=== PATIENT | male | born 1930 | race Caucasian/White ===

== ENCOUNTER 2016-07-21 07:06 | Emergency (ER) | payer MEDICARE ==
[2016-07-21 07:31] VITALS: BP 153/48
--- NOTE | 2016-07-21 08:10 | RAD ---
INDICATION: Cough COMPARISON: October 08, 2015 TECHNIQUE: PA and lateral dual-energy views were obtained. FINDINGS: Bones/Soft Tissues: There are no acute bony findings. There is interval left-sided cardiac pacemaker placement. Cardiomediastinal: The cardiomediastinal silhouette is normal. Lungs: There are no infiltrates. Pleura: There are no pleural effusions. Other: None IMPRESSION: NO ACTIVE DISEASE.
[2016-07-21] MEDS ORDERED: Aspirin Low Dose CHEW TAB* 81 MG PO ONE (08:34)
--- NOTE | 2016-07-21 10:59 | UC ---
I, Oh,Soohharjinder, scribed for Joi Webb DO on 07/21/16 at 0746 . Respiratory Complaint HPI - HPI Summary HPI Summary: This 85 y/o male presents to [facility] alongside for "cold symptoms" since 2016. Pt was evaluated by PCP about 5 days ago and put on cefdinir. Positive chills rhinorrhea, chest congestion, productive cough, streak of blood noted in mucous of nasal dischage and sputum, dyspnea, and fatigue. Pt has felt the increased fatigue, dyspnea and discomfort since 0400 AM, and pt decided to visit [facility] today. No recent fall, increased confusion, n/v/d, jaw/neck pain, rash, GARCIA, joint pain, or dark stool. present at bedside reports possible sick contact from herself, who were sick with similar cold symptoms about a week ago. PMHx includes afib s/p pacemaker placement, HTN, and hx of internal bleeding while on Xarelto. Pt is no longer on blood thinner. Pt is remote former smoker. - History of Current Complaint Stated Complaint: CONGESTION COUGH Hx Obtained From: Patient, Family/Secondary School Teacher Librarian - present at bedside, Medical Records Onset/Duration: Gradual Onset, Still Present Severity Initially: Moderate Severity Currently: Moderate Pain Intensity: 0 Character: Sputum Description: - Red streaks Aggravating Factors: Exertion Alleviating Factors: Nothing Associated Signs And Symptoms: Positive: Dyspnea, Chills, Wheezing. Negative: Fever, Pleuritic Chest Pain, Dizziness, URI, Sinus Discomfort - Allergies/Home Medications Allergies/Adverse Reactions: Allergies Allergy/AdvReac Type Severity Reaction Status Date / Time Clindamycin Allergy Hives Verified 09/26/14 19:05 Home Medications: Home Medications Aspirin [Aspirin 81 MG TAB] 1 tab PO DAILY 07/21/16 [History Confirmed 07/21/16] Cefdinir [Cefdinir 300 MG CAP] 300 mg PO BID 07/21/16 [History Confirmed ] PMH/Surg Hx/FS Hx/Imm Hx Endocrine History Of: Reports: Thyroid Disease Cardiovascular History Of: Reports: Cardiac Disorders - AFIB-PACEMAKER, Hypertension, Atrial Fibrillation - Surgical History Surgical History: Yes Surgery Procedure, Year, and Place: PROSTECTOMY (15-16 YEARS AGO), [facility] [place] 2003 URETHRAL DILATION, CYSTOSCOPY, INTERNAL URETHROTOMY, TUR INCISION OF BLADDER NECK, [facility] [place]. [place] & 09/2013 ENDOSCOPY WITH FOOD REMOVAL FROM SMALL ESOPHAGUS(X2), [facility] [place]. 10/2013 CARDIOVERSION, [facility] [place]. 04/25/2014 APPENDECTOMY, [facility]. PACEMAKER - Family History Known Family History: Negative: Cardiac Disease, Hypertension, Diabetes - Social History Occupation: Retired Lives: With Family Alcohol Use: Weekly Alcohol Amount: 4 beers and a glass of wine Substance Use Type: None Smoking Status (MU): Former Smoker Type: Pipe Have You Smoked in the Last Year: No When Did the Patient Quit Smoking/Using Tobacco: 1999 Review of Systems Constitutional: Chills, Fatigue Skin: Negative Eyes: Negative ENT: Nasal Discharge - blood noted after blowing Respiratory: Cough, Other - positive wheezing and tachypnea per Cardiovascular: Chest Pain - chest discomfort related to chest congestion Gastrointestinal: Negative Genitourinary: Negative Motor: Negative Neurovascular: Negative Musculoskeletal: Negative Neurological: Negative Psychological: Negative All Other Systems Reviewed And Are Negative: Yes Physical Exam Triage Information Reviewed: Yes Appearance: Well-Appearing, No Pain Distress, Well-Nourished Vital Signs: Initial Vital Signs Temp 99.1 F 07/21/16 07:20 Pulse 80 07/21/16 07:20 Resp 18 07/21/16 07:20 BP 153/48 07/21/16 07:20 Pulse Ox 97 07/21/16 07:20 Vital Signs Reviewed: Yes Eyes: Positive: Conjunctiva Clear. Negative: Discharge ENT: Positive: Hearing grossly normal - with hearing aides in place, TMs normal , Other: - nasal mucosa friable evidence for recent epistaxis. Neck exam: Normal Neck: Positive: Supple Respiratory: Positive: Lungs clear, Normal breath sounds, No respiratory distress Cardiovascular: Positive: RRR, No Murmur Abdomen Description: Positive: Nontender, No Organomegaly, Soft. Negative: Distended, Guarding Bowel Sounds: Positive: Present Musculoskeletal Exam: Normal Neurological: Positive: Alert, Muscle Tone Normal Psychological Exam: Normal Psychological: Positive: Age Appropriate Behavior Skin Exam: Normal UC Diagnostic Evaluation - Laboratory O2 Sat by Pulse Oximetry: 97 - Radiology Xray Interpretation: No Acute Changes Radiology Interpretation Completed By: Radiologist - EKG Cardiac Rate: NL - See EMR Re-Evaluation - Re-Evaluation First Eval Re-Evaluation Time: 08:01 Comment: Pt and updated on CXR. Plan of care involving EKG is discussed, and they are agreeable. Second Eval Re-Evaluation Time: 08:25 Comment: Plan of care involving transfer is discussed with pt and , and they are agreeable. Respiratory Course/Dx - Differential Dx/Diagnosis Differential Diagnosis/HQI/PQRI: Bronchitis, Lower Resp Infection, Sinusitis Provider Diagnoses: 1) dyspnea 2) fatigue - Physician Notification/Consults Discussed Patient Care With: JAMES Farris ([facility]) at 0830 AM Time Discussed With Above Provider: 08:30 Discharge - Discharge Plan Condition: Stable Disposition: TRANS HIGHER LVL OF CARE FAC Referrals: Reji Giordano, PROJECT TECHNICIAN [Primary Care Provider] - The documentation as recorded by the Juan Ramon angel Soohyun accurately reflects the service I personally performed and the decisions made by , Joi Webb DO.
== END 2016-07-21 08:52 | disposition short-term general hospital (02) ==
LOC: UCEAST 07:06
DX: R06.00 Dyspnea, unspecified (principal); R53.83 Other fatigue; Z87.891 Personal history of nicotine dependence
CPT/HCPCS: 71020; 93005; 99212; A9270-GY; G0463

== ENCOUNTER 2016-07-21 09:03 | Emergency (ER) | payer MEDICARE ==
[2016-07-21 09:39] LABS: Hematocrit 34 % (42-52); Hemoglobin 11.2 g/dl (14.0-18.0); Mean Corpuscular HGB Conc 33 g/dl (31-36); Mean Corpuscular Hemoglobin 30 pg (27-31); Mean Corpuscular Volume 89 fL (80-94); Mean Platelet Volume 7 um3 (7.4-10.4); Red Blood Count 3.79 10^6/ul (4.0-5.4); Red Cell Distribution Width 18 % (10.5-15)
[2016-07-21 09:57] LABS: Albumin 3.4 g/dL (3.2-5.2); BUN/Creatinine Ratio 22.7 (8-20); Calcium 8.4 mg/dL (8.6-10.3); EGFR African American 94.4 (>60); EGFR Non-African American 73.4 (>60); Globulin 3.4 g/dL (2-4); Total Bilirubin 0.9 mg/dL (0.2-1.0); Total Protein 6.8 g/dL (6.4-8.9); Troponin I 0.01 ng/mL (<0.04)
[2016-07-21 10:35] LABS: C Reactive Protein 6.05 mg/L (< 5.00)
[2016-07-21 12:22] LABS: Urine Bacteria Absent (Absent); Urine Bilirubin Negative (Negative); Urine Glucose Negative (Negative); Urine Nitrite Negative (Negative)
[2016-07-21 12:47] VITALS: BP 116/64
--- NOTE | 2016-07-21 18:20 | ED ---
prasad Casas Timothy, scribed for Olvin Jacobs MD on 07/21/16 at 0915 . Shortness of Breath - HPI Summary HPI Summary: John Bonilla is an 85 yo male presenting to [facility] with worsening SOB since last night, recommended to present by [facility]. He is not in any current pain. He states he has a cold for the past 10 days with productive cough, now unproductive. His is present in room, and states he was fatigued yesterday. He is not on any blood thinners currently other than baby ASA. He denies CP, fever, N/V/D. His MHx includes thyroid disease, Afib, CAD, HTN, esophageal ulcer, appendectomy. - History of Current Complaint Chief Complaint: EDShortnessOfBreath Time Seen by Provider: 07/21/16 09:09 Hx Obtained From: Patient Onset/Duration: Gradual Onset, Lasting Hours, Still Present, Worse Since - now Timing: Constant Current Severity: Moderate Dyspnea At: Rest Associated Signs & Symptoms: Cough (Productive) - Allergy/Home Medications Allergies/Adverse Reactions: Allergies Allergy/AdvReac Type Severity Reaction Status Date / Time Clindamycin Allergy Hives Verified 09/26/14 19:05 Home Medications: Home Medications Aspirin EC Low Dose* [Ecotrin EC Low Dose 81 MG*] 81 mg PO DAILY 07/21/16 [ History Confirmed 07/21/16] Cholecalciferol TAB* [Vitamin D TAB*] 400 unit PO QAM 07/21/16 [History Confirmed 07/21/16] Furosemide TAB* [Lasix TAB*] 20 mg PO DAILY 07/21/16 [History Confirmed 07/21/16 ] Losartan TAB* [Cozaar TAB*] 50 mg PO DAILY 07/21/16 [History Confirmed 07/21/16] Omeprazole CAP* [Prilosec CAP* 20 MG] 20 mg PO DAILY 07/21/16 [History Confirmed 07/21/16] Potassium Chlor TAB* [Klor Con ER TAB*] 10 meq PO DAILY 07/21/16 [History Confirmed 07/21/16] Sucralfate TAB* [Carafate*] 1 gm PO QID 07/21/16 [History Confirmed 07/21/16] PMH/Surg Hx/FS Hx/Imm Hx Endocrine/Hematology History: Reports: Hx Thyroid Disease Cardiovascular History: Reports: Hx Hypertension, Hx Pacemaker/ICD GI History: Reports: Other GI Disorders - VERY SMALL ESOPHAGUS, TAKING OMEPRAZOLE, FOOD GETS STUCK,-ENDOSCOPY Sensory History: Reports: Hx Cataracts - BILATERAL, Hx Contacts or Glasses - GLASSES, Hx Hearing Aid - LEFT Opthamlomology History: Reports: Hx Cataracts - BILATERAL, Hx Contacts or Glasses - GLASSES - Surgical History Surgery Procedure, Year, and Place: PROSTECTOMY (15-16 YEARS AGO), [facility] [place]. 2003 URETHRAL DILATION, CYSTOSCOPY, INTERNAL URETHROTOMY, TUR INCISION OF BLADDER NECK, [facility] [place]. 2007 & 09/2013 ENDOSCOPY WITH FOOD REMOVAL FROM SMALL ESOPHAGUS(X2), [facility] [place]. 10/2013 CARDIOVERSION, [facility] [place]. 04/25/2014 APPENDECTOMY, FLLA Hx Anesthesia Reactions: No Infectious Disease History: No Infectious Disease History: Denies: Traveled Outside the [place] in Last 30 Days - Social History Alcohol Use: Daily Alcohol Amount: 4 beers and a glass of wine Substance Use Type: Reports: None Hx Tobacco Use: No Smoking Status (MU): Former Smoker Type: Pipe Have You Smoked in the Last Year: No Review of Systems Positive: Fatigue Eyes: Negative ENT: Negative Cardiovascular: Negative Positive: Shortness Of Breath, Cough Gastrointestinal: Negative Genitourinary: Negative Musculoskeletal: Negative Skin: Negative Neurological: Negative Psychological: Normal All Other Systems Reviewed And Are Negative: Yes Physical Exam - Summary Physical Exam Summary: VITAL SIGNS: Reviewed. GENERAL: Patient is a well-developed and nourished (MALE OR FEMALE) who is lying comfortable in the stretcher. Patient is not in any acute respiratory distress. HEAD AND FACE: No signs of trauma. No ecchymosis, hematomas or skull depressions. No sinus tenderness. EYES: PERRLA, EOMI x 2, No injected conjunctiva, no nystagmus. EARS: Hearing grossly intact. Ear canals and tympanic membranes are within normal limits. MOUTH: Oropharynx within normal limits. NECK: Supple, trachea is midline, no adenopathy, no JVD, no carotid bruit, no c- spine tenderness, neck with full ROM. CHEST: Symmetric, no tenderness at palpation LUNGS: Clear to auscultation bilaterally. No wheezing or crackles. CVS: Regular rate and rhythm, S1 and S2 present, no murmurs or gallops appreciated. ABDOMEN: Soft, non-tender. No signs of distention. No rebound no guarding, and no masses palpated. Bowel sounds are normal. EXTREMITIES: FROM in all major joints, no edema, no cyanosis or clubbing. NEURO: Alert and oriented x 3. No acute neurological deficits. Speech is normal and follows commands. SKIN: Dry and warm Triage Information Reviewed: Yes Vital Signs On Initial Exam: Initial Vitals Temp Pulse Resp BP Pulse Ox 98.2 F 66 16 146/61 95 07/21/16 09:04 07/21/16 09:04 07/21/16 09:04 07/21/16 09:04 07/21/16 09:04 Vital Signs Reviewed: Yes Diagnostics - Vital Signs Vital Signs Temp Pulse Resp BP Pulse Ox 07/21/16 09:04 98.2 F 66 16 146/61 95 - Laboratory Lab Results: Lab Results 07/21/16 07/21/16 07/21/16 Range/Units 09:30 09:30 09:30 WBC 8.0 (3.5-10.8) 10^3/ul RBC 3.79 L (4.0-5.4) 10^6/ul Hgb 11.2 L (14.0-18.0) g/dl Hct 34 L (42-52) % MCV 89 (80-94) fL MCH 30 (27-31) pg MCHC 33 (31-36) g/dl RDW 18 H (10.5-15) % Plt Count 146 L (150-450) 10^3/ul MPV 7 L (7.4-10.4) um3 Neut % (Auto) 78.8 (38-83) % Lymph % (Auto) 6.2 L (25-47) % Kaufman % (Auto) 9.8 H (1-9) % Eos % (Auto) 4.0 (0-6) % Baso % (Auto) 1.2 (0-2) % Absolute Neuts (auto) 6.3 (1.5-7.7) 10^3/ul Absolute Lymphs (auto) 0.5 L (1.0-4.8) 10^3/ul Absolute Monos (auto) 0.8 (0-0.8) 10^3/ul Absolute Eos (auto) 0.3 (0-0.6) 10^3/ul Absolute Basos (auto) 0.1 (0-0.2) 10^3/ul Absolute Nucleated RBC 0 10^3/ul Nucleated RBC % 0 INR (Anticoag Therapy) 1.12 H (0.89-1.11) APTT 33.6 (26.0-36.3) seconds Sodium 131 L (133-145) mmol/L Potassium 4.0 (3.5-5.0) mmol/L Chloride 99 L (101-111) mmol/L Carbon Dioxide 25 (22-32) mmol/L Anion Gap 7 (2-11) mmol/L BUN 22 (6-24) mg/dL Creatinine 0.97 (0.67-1.17) mg/dL Est GFR ( Amer) 94.4 (>60) Est GFR (Non-Af Amer) 73.4 (>60) BUN/Creatinine Ratio 22.7 H (8-20) Glucose 112 H (70-100) mg/dL Lactic Acid (0.5-2.0) mmol/L Calcium 8.4 L (8.6-10.3) mg/dL Total Bilirubin 0.90 (0.2-1.0) mg/dL AST 50 H (13-39) U/L ALT 37 (7-52) U/L Alkaline Phosphatase 77 (34-104) U/L Troponin I 0.01 (<0.04) ng/mL C-Reactive Protein 6.05 H (< 5.00) mg/L B-Natriuretic Peptide ( - 100) pg/mL Total Protein 6.8 (6.4-8.9) g/dL Albumin 3.4 (3.2-5.2) g/dL Globulin 3.4 (2-4) g/dL Albumin/Globulin Ratio 1.0 (1-3) Urine Color Urine Appearance Urine pH (5-9) Ur Specific [place] (1.010-1.030) Urine Protein (Negative) Urine Ketones (Negative) Urine Blood (Negative) Urine Nitrate (Negative) Urine Bilirubin (Negative) Urine Urobilinogen (Negative) Ur Leukocyte Esterase (Negative) Urine WBC (Auto) (Absent) Urine RBC (Auto) (Absent) Urine Bacteria (Absent) Urine Glucose (Negative) 07/21/16 07/21/16 07/21/16 Range/Units 09:30 09:30 12:00 WBC (3.5-10.8) 10^3/ul RBC (4.0-5.4) 10^6/ul Hgb (14.0-18.0) g/dl Hct (42-52) % MCV (80-94) fL MCH (27-31) pg MCHC (31-36) g/dl RDW (10.5-15) % Plt Count (150-450) 10^3/ul MPV (7.4-10.4) um3 Neut % (Auto) (38-83) % Lymph % (Auto) (25-47) % Kaufman % (Auto) (1-9) % Eos % (Auto) (0-6) % Baso % (Auto) (0-2) % Absolute Neuts (auto) (1.5-7.7) 10^3/ul Absolute Lymphs (auto) (1.0-4.8) 10^3/ul Absolute Monos (auto) (0-0.8) 10^3/ul Absolute Eos (auto) (0-0.6) 10^3/ul Absolute Basos (auto) (0-0.2) 10^3/ul Absolute Nucleated RBC 10^3/ul Nucleated RBC % INR (Anticoag Therapy) (0.89-1.11) APTT (26.0-36.3) seconds Sodium (133-145) mmol/L Potassium (3.5-5.0) mmol/L Chloride (101-111) mmol/L Carbon Dioxide (22-32) mmol/L Anion Gap (2-11) mmol/L BUN (6-24) mg/dL Creatinine (0.67-1.17) mg/dL Est GFR ( Amer) (>60) Est GFR (Non-Af Amer) (>60) BUN/Creatinine Ratio (8-20) Glucose (70-100) mg/dL Lactic Acid 0.8 (0.5-2.0) mmol/L Calcium (8.6-10.3) mg/dL Total Bilirubin (0.2-1.0) mg/dL AST (13-39) U/L ALT (7-52) U/L Alkaline Phosphatase (34-104) U/L Troponin I (<0.04) ng/mL C-Reactive Protein (< 5.00) mg/L B-Natriuretic Peptide 292 H ( - 100) pg/mL Total Protein (6.4-8.9) g/dL Albumin (3.2-5.2) g/dL Globulin (2-4) g/dL Albumin/Globulin Ratio (1-3) Urine Color Yellow Urine Appearance Clear Urine pH 5.0 (5-9) Ur Specific [place] 1.013 (1.010-1.030) Urine Protein Negative (Negative) Urine Ketones Negative (Negative) Urine Blood 1+ H (Negative) Urine Nitrate Negative (Negative) Urine Bilirubin Negative (Negative) Urine Urobilinogen Negative (Negative) Ur Leukocyte Esterase Negative (Negative) Urine WBC (Auto) Absent (Absent) Urine RBC (Auto) Trace(0-2/hpf) (Absent) Urine Bacteria Absent (Absent) Urine Glucose Negative (Negative) Result Diagrams: 07/21/16 09:30 07/21/16 09:30 Lab Statement: Any lab studies that have been ordered have been reviewed, and results considered in the medical decision making process. - EKG 0910 Cardiac Rate: NL - 71 BPM, Other Rate EKG Interpretation: Afib @ 71 BPM. Course/Dx - Course Assessment/Plan: John Bonilla is an 85 yo male presenting to [facility] with SOB worsening since last night, sent by [facility]. CXR performed at [facility] suggests a negative examination. His EKG was WNL. After clinical examination and review of his lab and imaging studies, he will be discharged home with fatigue with appropriate instructions. Pt's blood work is WNL. There is slight anemia, but he is better than his baseline. Bnp is 292, better than usual. UA suggests no UTI, CXR shows no PNA. Therefore, I believe Pt is decompensated and fatigue. I gave instructions to Pt and Pt's daughter that if he develops any cough, fevers , chills, N/V, CP, or SOB he should return immediately to [facility] for further work up. He is hemodamically stable and A&Ox3. I discussed all the findings and test results with the patient. Patient was instructed to return to the emergency room immediately if any of the symptoms return or worsens. Plan of care was discussed with the patient and understands and agrees. All questions were answered at patient satisfaction. There were no further complaints or concerns. Lung exam before discharge: CTA B/L. Good air exchange. No wheezing or crackles heard. CVS: S1 and S2 present. No murmurs appreciated. Patient is alert and oriented x 3. Patient is hemodynamically stable. Patient will be discharged home with follow up PCP in the next 2-3 days - Diagnoses Differential Diagnosis/HQI/PQRI: Positive: Bronchitis, CHF, Pneumonia Provider Diagnoses: Fatigue Discharge - Discharge Plan Condition: Stable Disposition: HOME Patient Education Materials: Fatigue (ED) Referrals: Reji Giordano NP [Primary Care Provider] - 2 Days Additional Instructions: Please follow up with your primary care physician regarding your visit to the emergency department today. Return to the emergency department with any new or recurring symptoms. The documentation as recorded by the prasad angel Timothy accurately reflects the service I personally performed and the decisions made by , Olvin Jacobs MD.
== END 2016-07-21 12:43 | disposition home or self-care (01) ==
LOC: ED 09:03
DX: R53.83 Other fatigue (principal); I10 Essential (primary) hypertension; E07.9 Disorder of thyroid, unspecified; Z95.810 Presence of automatic (implantable) cardiac defibrillator; Z87.891 Personal history of nicotine dependence
CPT/HCPCS: 36415; 80053; 81003; 81015; 83605; 83880; 84484; 85025; 85610; 85730; 86140; 87040; 93005; 99283

== ENCOUNTER 2016-10-30 08:08 | Emergency (ER) | payer MEDICARE ==
[2016-10-30 08:25] VITALS: BP 153/76
--- NOTE | 2016-10-30 09:03 | RAD ---
INDICATION: Left lower leg injury. TECHNIQUE: 2 views of the left lower leg were obtained. FINDINGS: There is soft tissue anterior to the proximal tibia. No fracture is seen. IMPRESSION: SOFT TISSUE SWELLING, NO FRACTURE IS SEEN.
--- NOTE | 2016-10-30 09:50 | UC ---
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 LEG HAS LARGE BRUISE AND IS PAINFUL. HISTORY OF CELLULITIS. CONCERN THAT HE MAY DEVELOP CELLULITIS. - History of Current Complaint Chief Complaint: UCLowerExtremity Stated Complaint: RED AREA ON LEG Time Seen by Provider: 10/30/16 08:09 Hx Obtained From: Patient, Family/Bathhouse Attendant Onset/Duration: Sudden Onset, Lasting Days, Still Present Severity Initially: Moderate Severity Currently: Moderate Pain Intensity: 5 Pain Scale Used: 0-10 Numeric Aggravating Factor(s): Standing, Ambulation Alleviating Factor(s): Rest Able to Bear Weight: Yes - Risk Factors Gout Risk Factors: Negative DVT Risk Factors: Negative Septic Arthritis Risk Factor: Negative - Allergies/Home Medications Allergies/Adverse Reactions: Allergies Allergy/AdvReac Type Severity Reaction Status Date / Time Clindamycin Allergy Hives Verified 10/30/16 08:25 PMH/Surg Hx/FS Hx/Imm Hx Previously Healthy: Yes - Surgical History Surgical History: Yes Surgery Procedure, Year, and Place: PROSTECTOMY (15-16 YEARS AGO), [facility] [place]. 2003 URETHRAL DILATION, CYSTOSCOPY, INTERNAL URETHROTOMY, TUR INCISION OF BLADDER NECK, [facility] [place]. 2007 & 09/2013 ENDOSCOPY WITH FOOD REMOVAL FROM SMALL ESOPHAGUS(X2), [facility] [place]. 10/2013 CARDIOVERSION, [facility] [place]. 04/25/2014 APPENDECTOMY, FLLA - Family History Known Family History: Negative: Cardiac Disease, Hypertension, Diabetes - Social History Occupation: Retired Lives: With Family Alcohol Use: Daily Alcohol Amount: 4 beers and a glass of wine Substance Use Type: None Smoking Status (MU): Former Smoker Type: Pipe Have You Smoked in the Last Year: No When Did the Patient Quit Smoking/Using Tobacco: 1999 Review of Systems Constitutional: Negative Skin: Bruising - LEFT ANTERIOR LOWER LEG Eyes: Negative ENT: Negative Respiratory: Negative Cardiovascular: Negative Gastrointestinal: Negative Genitourinary: Negative Motor: Negative Neurovascular: Negative Musculoskeletal: Arthralgia, Myalgia Neurological: Negative Psychological: Negative All Other Systems Reviewed And Are Negative: Yes Physical Exam Triage Information Reviewed: Yes Appearance: Well-Appearing, Well-Nourished, Pain Distress - MILD Vital Signs: Initial Vital Signs Temp 98.4 F 10/30/16 08:18 Pulse 75 10/30/16 08:18 Resp 18 10/30/16 08:18 BP 153/76 10/30/16 08:18 Pulse Ox 99 10/30/16 08:18 Vital Signs Reviewed: Yes Eye Exam: Normal ENT Exam: Normal ENT: Positive: Normal ENT inspection, TMs normal Dental Exam: Normal Neck exam: Normal Neck: Positive: Supple, Nontender Respiratory Exam: Normal Respiratory: Positive: Chest non-tender, Lungs clear, Normal breath sounds, No respiratory distress, No accessory muscle use Cardiovascular Exam: Normal Cardiovascular: Positive: RRR, No Murmur Abdominal Exam: Normal Musculoskeletal: Positive: Strength Intact, ROM Intact, Edema @ - LEFT ANTERIOR LEG CONTUSION/HEMATOMA Neurological Exam: Normal Psychological Exam: Normal Skin: Positive: Other - LEFT ANTERIOR LOWER LEG LATERAL ASPECT CONTUSION/ HEMATOMA Lower Extremity Course/Dx - Course Course Of Treatment: PATIENT AND FAMILY WERE CONCERNED WITH CELLULITIS IN CONTEXT OF RECENT INJURY. PATIENT WAS PLACED ON KEFLEX 250 QID FOR FIVE DAYS WITH FOLLOW UP TO PRIMARY CARE - Differential Dx/Diagnosis Differential Diagnosis/HQI/PQRI: Fracture (Closed), Sprain, Strain Provider Diagnoses: LEFT LOWER LEG CONTUSION/HEMATOMA Discharge - Discharge Plan Condition: Stable Disposition: HOME Prescriptions: Cephalexin CAP* [Keflex 250 CAP*] 250 mg PO QID #20 cap Patient Education Materials: Cellulitis (ED), Contusion in Adults (ED) Referrals: Reji Giordano NP [Primary Care Provider] - Images Front/Back of Body, Lg ([place]): 1 - CONTUSION, HEMATOMA HERE
== END 2016-10-30 09:17 | disposition home or self-care (01) ==
LOC: UCEAST 08:08
DX: S80.12XA Contusion of left lower leg, initial encounter (principal); W22.8XXA Striking against or struck by other objects, initial encounter
CPT/HCPCS: 99212; G0463

== ENCOUNTER 2017-08-12 13:08 | Emergency (ER) | payer MEDICARE ==
[2017-08-12 13:25] VITALS: BP 166/70
--- NOTE | 2017-08-12 13:28 | UC ---
Skin Complaint HPI - HPI Summary HPI Summary: 86 yo male presents with abrasion to left lower leg. He tells me that 5 days ago he was going to get down off his tractor and mis-stepped - hit his left lower leg on a bucket and sustained a small laceration. Now thinks he has developed cellulitis. His caretaker resort with him today has a well documented history of cellulitis due to minor injuries over the last few years and has been placed on Cipro nearly every time with good resolution. He is ambulatory with a cane and mild pain. Denies fever, chills, increased SOB. - History of Current Complaint Chief Complaint: UCLowerExtremity Stated Complaint: LEG PAIN Hx Obtained From: Patient, Family/Putaway Driver Onset/Duration: Gradual Onset Skin Exposure Onset/Duration: Days Ago Timing: Constant Onset Severity: Moderate Current Severity: Mild Pain Intensity: 4 Pain Scale Used: 0-10 Numeric - Allergy/Home Medications Allergies/Adverse Reactions: Allergies Allergy/AdvReac Type Severity Reaction Status Date / Time clindamycin Allergy Rash Verified 08/12/17 13:26 Review of Systems Constitutional: Negative Skin: Other - Left leg redness Respiratory: Negative Cardiovascular: Negative Neurovascular: Negative Neurological: Negative Psychological: Negative All Other Systems Reviewed And Are Negative: Yes PMH/Surg Hx/FS Hx/Imm Hx Endocrine History: Hypothyroidism Cardiovascular History: Cardiac Disease, Hypertension, Congestive Heart Failure , Atrial Fibrillation GI/ History: Gastroesophageal Reflux - Surgical History Surgical History: Yes Surgery Procedure, Year, and Place: [place] (15-16 [place]ARS [place]GO[place] [facility] [place] URETHRAL DILATION, CYSTOSCOPY, INTERNAL URETHROTOMY, TUR [place]ISION [place] BLAD[place] [facility] [place] 09[place]2013 [place]OSCOPY WITH FOOD REMOVAL [place] SMALL ESOPHAG[place]X2[place] [facility] [place]. [place], [facility] [place] 04/25/2014 APPENDECTOMY, [facility] - Family History Known Family History: Negative: Cardiac Disease, Hypertension, Diabetes - Social History Occupation: Retired Lives: With Family Alcohol Use: Occasionally Alcohol Amount: 4 beers and a glass of wine Substance Use Type: None Smoking Status (MU): Former Smoker Type: Pipe Have You Smoked in the Last Year: No When Did the Patient Quit Smoking/Using Tobacco: 1999 Physical Exam - Summary Physical Exam Summary: GENERAL: NAD. WDWN. No pain distress. SKIN: 2.5cm healing laceration to anterior left lower leg. 3+ edema b/l LEs. Left LE with mild erythema and brawny appearance. Mild warmth. NECK: Supple. Nontender. No lymphadenopathy. CHEST: No accessory muscle use. Breathing comfortably and in no distress. CV: Pulses intact left DP and PT. Brisk cap refill. MSK: Left LE: FROM. Strength 5/5. sensations intact NEURO: Alert. CN II-XII grossly intact. PSYCH: Age appropriate behavior. Triage Information Reviewed: Yes Vital Signs: Initial Vital Signs Temp 98.7 F 08/12/17 13:16 Pulse 72 08/12/17 13:16 Resp 16 08/12/17 13:16 BP 166/70 08/12/17 13:16 Pulse Ox 100 08/12/17 13:16 Course/Dx - Course Course Of Treatment: Cellulitis left lower leg - Cipro - Diagnoses Provider Diagnoses: Left leg cellulitis Discharge - Sign-Out/Discharge Documenting (check all that apply): Discharge/Admit/Transfer - Discharge Plan Condition: Stable Disposition: HOME Prescriptions: Ciprofloxacin TAB* [Cipro 500 MG TAB*] 500 mg PO BID #14 tab Patient Education Materials: Cellulitis (DC) Referrals: Reji Giordano NP [Primary Care Provider] - Additional Instructions: If you develop a fever, shortness of breath, chest pain, new or worsening symptoms - please call your PCP or go to the ED. Your blood pressure was high at todays visit. Please see your primary provider within 4 weeks for recheck and re-evaluation. - Billing Disposition and Condition Condition: STABLE Disposition: Home
== END 2017-08-12 13:42 | disposition home or self-care (01) ==
LOC: UCEAST 13:08
DX: L03.116 Cellulitis of left lower limb (principal); E03.9 Hypothyroidism, unspecified; I51.9 Heart disease, unspecified; I10 Essential (primary) hypertension; I50.9 Heart failure, unspecified; I48.91 Unspecified atrial fibrillation; K21.9 Gastro-esophageal reflux disease without esophagitis; Z88.1 Allergy status to other antibiotic agents; Z87.891 Personal history of nicotine dependence
CPT/HCPCS: 99212; G0463

== ENCOUNTER 2017-09-23 09:27 | Emergency (ER) | payer MEDICARE ==
--- OUTSIDE RECORDS SUMMARY | 2017-09-23 09:38 | XMS REPORT ---
:1930 External Reference #:[id number] Author Organization [facility] Address [address] [address] Phone [phone] Care Team Providers Name Role Phone Reji Giordano N.P. Care Team Information Client Reporting Associate Unavailable Payers Type Date Identification Numbers Payment Provider Subscriber Medicare Primary Effective: Policy Number: Medicare John Bonilla 1995 [id number] Group Name: [facility] [address] PayID: [id number] [place] [address] [facility] Effective: Policy Number: [facility] John 2012 [id number] [place] PayID: [id number] [address] [place] [address] Problems Date Description Provider Status Onset: 08/28/2012 Benign essential hypertension Reji Giordano, N.P. Active Onset: 07/08/2014 Gastroesophageal reflux disease Reji Giordano, N.PIvan Active Onset: 07/08/2014 Hypothyroidism Reji Giordano, N.PIvan Active Onset: 07/04/2016 Cardiac pacemaker procedure Reji Giordano, N.P. Active Onset: 09/26/2016 Cellulitis of lower leg Reji Giordano, N.P. Active Onset: 11/22/2016 Peripheral venous insufficiency Reji Giordnao, N.PIvan Active Onset: 11/22/2016 Gout Reji Giordano, N.PIvan Active Onset: 11/22/2016 Anemia Reji Giordano, N.PIvan Active Onset: 07/25/2017 Gastric polyp Reji Giordano N.PIvan Active Family History Date Family Member(s) Problem(s) Comments Father due to [place] () - 72y Mother due to Old Age () - age 93 Children 6 Social History Type Date Description Comments Marital Status Significant Other female ETOH Use Currently consumes alcohol daily 4 beers/d Smoking Patient is a former smoker quit 12y Allergies, Adverse Reactions, Alerts Date Description Reaction Status Severity Comments 07/08/2014 Clindamycin active 08/28/2012 NKDA inactive Medications Medication Date Status Form Strength Qnty SIG Indications Ordering Provider Ciprofloxacin 08/17/ Active Tablets 500mg 14tab 1 by mouth [place], HCL 2018 s twice a day x Mashelle, 7 days N.P. Mupirocin 11/14/ Active Ointment 2% 22uni apply to 2016 ts affected area Reji of leg twice N.P. a day Iron 07/04/ Active Tablets 142(45Fe) 1 po qd Pasquale2016 ER mg Mashelle, N.P. Sucralfate 07/04/ Active Tablets 1gm 120ta 1 by mouth Pasquale, 2016 bs qid Masxile, N.P. Aspirin Adult 07/04/ Active Tablets 81mg 90tab 1 by mouth Pasquale, Low Dose 2016 DR corona every day Masxile, N.P. Furosemide 07/23/ Active Tablets 20mg 90tab 1 by mouth Pasquale, 2015 s every day Mashelle, N.P. Potassium 07/23/ Active Tablets 10Meq 90tab 1 by mouth Pasquale, Chloride ER 2015 ER s every day Masxile, with lasix N.P. Losartan 07/21/ Active Tablets 50mg 90tab 1 by mouth Pasquale, Potassium 2015 s every day Mashelle, N.P. Amiodarone HCL 07/08/ Active Tablets 200mg 90tab 1 by mouth Pasquale, 2014 s every day Mashelle, N.P. Levothyroxine 07/08/ Active Tablets 25mcg 90tab take one Pasquale Sodium 2014 s tablet by Massofia mouth every N.P. day Omeprazole 09/04/ Active Capsules 20mg 90cap take one Pasquale 2012 DR corona capsule by Reji, mouth once N.P. daily Allopurinol 08/28/ Active Tablets 100mg 90tab take one Pasquale 2012 s tablet by Reji, mouth once N.P. daily Elidel 11/08/ Hx Cream 1% Pasquale, 2017 - Mashelle, 11/08/ N.P. 2017 Elidel 11/08/ Hx Cream 1% 60gm apply to LEFT Pasquale, 2017 - lower leg tid Mashelle, 11/22/ as directed N.P. 2017 Cipro 11/08/ Hx Tablets 500mg 10tab 1 by mouth Pasquale, 2017 - s twice a day x Mashelle, days N.P. 2017 Cephalexin 11/03/ Hx Capsules 250mg 15cap 1 By Mouth 4 Pasquale, 2017 - s Times A Day. Mashelle, 11/03/ N.P. 2016 Ciprofloxacin 11/03/ Hx Tablets 500mg 14tab 1 by mouth Pasqulae, HCL 2016 - s twice a day x Mashelle, days N.P. 2016 Hydrocodone-Keo 09/26/ Hx Tablets 5-325mg 60tab 1 by mouth Pasquale, taminophen 2016 - s every 4- 6 h Mashelle, 07/25/ as needed for N.P. 2018 pain Cefdinir 07/14/ Hx Capsules 300mg 20cap 1 by mouth Pasquale, 2016 - s twice a day x Mashelle, days N.P. 2017 Cipro 03/26/ Hx Tablets 500mg 20tab 1 by mouth Pasquale, 2015 - s twice a day x Mashelle, days N.P. 2017 Ciprofloxacin 01/20/ Hx Tablets 500mg 20tab 1 by mouth Pasquale, HCL 2014 - s twice a day x Mashelle, days N.P. 2016 Doxycycline 01/20/ Hx Capsules 100mg 20cap 1 by mouth Pasquale, Hyclate 2014 - s twice a day x Mashelle, day N.P. 2016 Losartan 07/08/ Hx Tablets 25mg 30tab 1 by mouth Pasquale, Potassium 2014 - s every day Mashelle, 07/21/ N.P. 2016 Hydrocodone 11/14/ Hx 5-325mg 24uni 1-2 by mouth Pasquale, Bitartrate / 2014 - ts every 4-6h as Mashelle, Acetaminophen 07/08/ needed pain N.P. 2014 Indomethacin 11/14/ Hx Capsules 25mg 18cap 1-2 by mouth Pasquale, 2013 - s three times a Reji, 07/08/ day with food N.P. 2014 for pain and inflammation for 2 days Xarelto 07/16/ Hx Tablets 20mg 1 qd Pasquale, 2013 - Reji, 07/04/ N.P. 2016 Xarelto 10/09/ Hx Tablets 10mg Pasquale, 2012 - Reji, 07/16/ N.P. 2013 Atenolol 09/04/ Hx Tablets 50mg 90tab take one Pasquale 2012 - tablet by Reji, 07/08/ mouth once N.P. 2014 daily Immunizations CPT Code Status Date Vaccine Lot # [id number] Given 11/22/2016 Influenza Vac, 3 Yrs & Older, Quadrivalent, Split, [id number] Im Use 87318 Given 12/03/2015 Pneumococcal 23 Immunization Adult Or [id number] Immunosuppressed Patient 78305 Given 11/25/2015 Influenza Vac, 3 Yrs & Older, Quadrivalent, Split, [id number] Im Use 12723 Given 12/28/2014 Influenza Vac, 3 Yrs & Older, Quadrivalent, Split, Im Use 15951 Given 12/01/2014 Prevnar 13 Pneumococal Conjugate Vaccine [id number] Q2038 Given 11/20/2013 Fluzone Trivalent Immunization [id number] 79600 Given 12/03/2012 Zoster (Zostavax) [id number] Given 11/20/2012 Fluzone Trivalent Immunization [id number] Vital Signs Date Vital Result Comment 08/22/2017 Body Temperature 98.4 F Weight 179.25 lb Heart Rate 67 /min BP Systolic 134 mmHg BP Diastolic 66 mmHg O2 % BldC Oximetry 96 % 07/25/2017 Body Temperature 99.0 F Weight 172.12 lb Heart Rate 85 /min BP Systolic 136 mmHg BP Diastolic 80 mmHg O2 % BldC Oximetry 99 % 11/22/2016 Body Temperature 97.7 F Weight 171.38 lb Heart Rate 79 /min BP Systolic 129 mmHg BP Diastolic 63 mmHg O2 % BldC Oximetry 99 % 11/08/2016 Body Temperature 97.7 F Weight 169.00 lb Heart Rate 83 /min BP Systolic 147 mmHg BP Diastolic 77 mmHg O2 % BldC Oximetry 98 % 11/03/2016 Body Temperature 98.4 F Weight 171.00 lb Heart Rate 79 /min BP Systolic 146 mmHg BP Diastolic 76 mmHg O2 % BldC Oximetry 95 % 09/26/2016 Body Temperature 97.9 F Weight 172.12 lb Heart Rate 66 /min BP Systolic 117 mmHg BP Diastolic 61 mmHg O2 % BldC Oximetry 98 % 08/16/2016 Body Temperature 98.1 F Weight 170.00 lb Heart Rate 67 /min BP Systolic 163 mmHg BP Diastolic 71 mmHg O2 % BldC Oximetry 98 % 07/14/2016 Body Temperature 98.6 F Weight 168.00 lb Heart Rate 73 /min BP Systolic 140 mmHg BP Diastolic 61 mmHg O2 % BldC Oximetry 98 % 07/04/2016 Body Temperature 97.5 F Weight 169.38 lb Heart Rate 74 /min BP Systolic 169 mmHg BP Diastolic 74 mmHg Height 68.5 inches 5'8.50" O2 % BldC Oximetry 98 % BMI (Body Mass Index) 25.4 kg/m2 11/25/2015 Body Temperature 97.9 F Weight 185.38 lb Heart Rate 59 /min BP Systolic 137 mmHg BP Diastolic 62 mmHg O2 % BldC Oximetry 98 % 07/22/2015 Body Temperature 98.1 F Weight 191.00 lb Heart Rate 67 /min BP Systolic 126 mmHg BP Diastolic 62 mmHg O2 % BldC Oximetry 99 % 03/26/2015 Body Temperature 97.2 F Weight 190.00 lb Heart Rate 66 /min BP Systolic 156 mmHg BP Diastolic 74 mmHg 01/20/2015 Body Temperature 97.3 F Weight 189.25 lb Heart Rate 65 /min BP Systolic 122 mmHg BP Diastolic 61 mmHg 12/01/2014 Body Temperature 98.2 F Weight 189.12 lb Heart Rate 65 /min BP Systolic 165 mmHg BP Diastolic 65 mmHg O2 % BldC Oximetry 94 % 09/01/2014 Body Temperature 97.9 F Weight 184.50 lb Heart Rate 63 /min BP Systolic 184 mmHg BP Diastolic 78 mmHg 08/14/2014 Body Temperature 97.7 F Weight 180.25 lb Heart Rate 83 /min BP Systolic 151 mmHg BP Diastolic 57 mmHg 07/08/2014 Body Temperature 97.7 F Weight 177.00 lb Heart Rate 68 /min BP Systolic 147 mmHg BP Diastolic 70 mmHg O2 % BldC Oximetry 99 % 11/20/2013 Body Temperature 97.9 F Weight 180.00 lb Heart Rate 49 /min BP Systolic 129 mmHg BP Diastolic 74 mmHg 11/14/2013 Body Temperature 98.2 F Weight 184.25 lb Heart Rate 48 /min Irregular. BP Systolic 104 mmHg BP Diastolic 56 mmHg O2 % BldC Oximetry 95 % 07/16/2013 Body Temperature 97.7 F Weight 187.00 lb Heart Rate 93 /min BP Systolic 183 mmHg BP Diastolic 70 mmHg O2 % BldC Oximetry 96 % 11/20/2012 Body Temperature 97.6 F Weight 174.25 lb Heart Rate 64 /min BP Systolic 120 mmHg BP Diastolic 60 mmHg 08/28/2012 Body Temperature 98.4 F Weight 173.12 lb Heart Rate 74 /min BP Systolic 168 mmHg BP Diastolic 70 mmHg Height 68.25 inches 5'8.25" BMI (Body Mass Index) 26.1 kg/m2 Results Test Date Test Result H/L Range Note Laboratory test finding 11/22/2016 TSH 3.05 uIU/mL 0.35-4.94 Lipid 11/22/2016 Cholesterol 146 mg/dL 50-199 Triglycerides 76 mg/dL 30-200 HDL 45 mg/dL 29-71 1 Chol/ HDL Ratio 3.2 ratio Low 4.0-6.7 VLDL 15 mg/dL 2-29 LDL (Calc) 86 mg/dL 20-99 2 Comprehensive Met Panel-[facility]G 11/22/2016 Sodium 134 mmol/L Low 135-146 3 Potassium 3.9 mmol/L 3.5-5.2 Chloride# 101 mmol/L 97-110 4 Carbon Dioxide 25 mmol/L 24-34 Glucose 119 mg/dL High 70-105 BUN 20 mg/dL 6-26 Creatinine 1.0 mg/dL 0.5-1.4 Calcium 8.6 mg/dL 8.5-10.2 Total Protein 6.3 g/dL 6.0-8.0 Albumin 3.7 g/dL 3.6-4.9 Globulin 2.6 g/dL 2.0-3.5 A/G Ratio 1.4 Ratio 1.0-2.2 Total Bilirubin 0.7 mg/dL 0.1-1.3 Alkaline Phosphatase 65 U/L 24-140 Alt 44 U/L High 3-42 Ast 57 U/L High 8-42 Lisbeth Egfr >60 >60 5 Non Lisbeth Egfr >60 >60 6 Anion Gap 8 mmol/L 7-16 7 Laboratory test finding 11/22/2016 PSA <0.010 ng/mL 0.000-4.000 8 Laboratory test finding 12/01/2014 TSH 2.93 uIU/mL 0.35-4.94 9 CBC With Auto Diff 07/16/2013 WBC 5.3 K/uL 4.1-11.0 9 RBC 4.31 M/uL Low 4.60-6.10 9 Hemoglobin 13.0 gm/dL Low 13.5-18.0 9 Hematocrit 38.6 % Low 41.0-53.0 9 MCV 89.6 fL 80.0-97.0 9 MCH 30.2 pg 27.0-32.0 9 MCHC 33.7 g/dL 32.0-36.0 9 RDW 14.1 % 11.5-14.5 9 PLT Count 164 K/ul 140-400 9 Neutrophil 66.5 % 35.0-75.0 9 Lymphocyte 17.2 % 16.0-52.0 9 Monocyte 11.6 % High 2.0-10.0 9 Eosinophil 4.0 % 0.0-5.0 9 Basophil 0.7 % 0.0-4.0 9 Abs Neutrophils 3.6 K/uL 2.1-8.0 9 Abs Lymphocytes 0.9 K/uL 0.8-5.5 9 Abmon 0.6 K/uL 0.1-1.0 9 Abs Eosinophils 0.2 K/uL 0.0-0.5 9 Abs Basophils 0.0 K/uL 0.0-0.3 9 Comprehensive Metabolic (CMP) 07/16/2013 Sodium 139 mmol/L 134-142 9 Potassium 4.6 mmol/L 3.5-5.2 9 Chloride 101 mmol/L 97-109 9 Carbon Dioxide 31 mmol/L 24-34 9 Glucose 84 mg/dL 70-105 9 BUN 17 mg/dL 6-26 9 Creatinine 0.9 mg/dL 0.5-1.4 9 Calcium 9.2 mg/dL 8.5-10.2 9 Total Protein 6.7 g/dL 6.0-8.0 9 Albumin 4.3 g/dL 3.6-4.9 9 Globulin 2.4 g/dL 2.0-3.5 9 A/G Ratio 1.8 Ratio 1.0-2.2 9 Total Bilirubin 0.4 mg/dL 0.1-1.3 9 Alkaline Phosphatase 53 U/L 24-140 9 Alt 14 U/L 3-42 9 Ast 20 U/L 8-42 9 Anion Gap 12 mmol/L 6-14 9 Lisbeth Egfr >60 >60 9, 10 Non Lisbeth Egfr >60 >60 9, 11 Lipid 07/16/2013 Cholesterol 189 mg/dL 50-199 9 Triglycerides 101 mg/dL 30-200 9 HDL 55 mg/dL 29-71 9, 12 Chol/ HDL Ratio 3.4 ratio Low 4.0-6.7 9 VLDL 20 mg/dL 2-29 9 LDL (Calc) 114 mg/dL High 20-99 9, 13 Laboratory test finding 07/16/2013 PSA 0.12 ng/mL 0.00-4.00 9, 14 CBC With Auto Diff 08/28/2012 WBC 6.1 K/uL 4.1-11.0 15 RBC 4.20 M/uL Low 4.60-6.10 15 Hemoglobin 12.7 gm/dL Low 13.5-18.0 15 Hematocrit 39.0 % Low 41.0-53.0 15 MCV 92.8 fL 80.0-97.0 15 MCH 30.1 pg 27.0-32.0 15 MCHC 32.5 g/dL 32.0-36.0 15 RDW 14.1 % 11.5-14.5 15 PLT Count 186 K/ul 140-400 15 Neutrophil 65.5 % 35.0-75.0 15 Lymphocyte 19.0 % 16.0-52.0 15 Monocyte 11.0 % High 2.0-10.0 15 Eosinophil 3.7 % 0.0-5.0 15 Basophil 0.8 % 0.0-4.0 15 Abs Neutrophils 4.0 K/uL 2.1-8.0 15 Abs Lymphocytes 1.2 K/uL 0.8-5.5 15 Abs Monocytes 0.7 K/uL 0.1-1.0 15 Abs Eosinophils 0.2 K/uL 0.0-0.5 15 Abs Basophils 0.1 K/uL 0.0-0.3 15 Comprehensive Metabolic (CMP) 08/28/2012 Sodium 138 mmol/L 134-142 15 Potassium 4.9 mmol/L 3.5-5.2 15 Chloride 102 mmol/L 97-109 15 Carbon Dioxide 29 mmol/L 24-34 15 Glucose 95 mg/dL 70-105 15 BUN 18 mg/dL 6-26 15 Creatinine 0.8 mg/dL 0.5-1.4 15 Calcium 9.4 mg/dL 8.5-10.2 15 Total Protein 6.8 g/dL 6.0-8.0 15 Albumin 4.5 g/dL 3.6-4.9 15 Globulin 2.3 g/dL 2.0-3.5 15 A/G Ratio 2.0 Ratio 1.0-2.2 15 Total Bilirubin 0.7 mg/dL 0.1-1.3 15 Alkaline Phosphatase 49 U/L 24-140 15 Alt 12 U/L 3-42 15 Ast 16 U/L 8-42 15 Anion Gap 12 mmol/L 6-14 15 Lisbeth Egfr >60 >60 15, 16 Non Lisbeth Egfr >60 >60 15, 17 Laboratory test finding 08/28/2012 TSH 2.20 uIU/mL 0.34-5.60 15 Vitamin B12 686 pg/mL 180-914 15 Laboratory test finding 08/28/2012 B Natriuretic Pep 311 pg/mL High (0-100 ) 15, 18 1 Per NCEP ATP III Guidelines: Results lower than 40 mg/dL are suggestive of increased risk for coronary artery disease. Results > or=to 60 mg/dL are considered a negative risk factor. 2 Per NCEP ATP III Guidelines: Normal Population <130 Patients with medical conditions: CHD/DM Optimal: <100 Borderline high: 130-159 High: 160-189 Very high: >189 3 Updated reference range on new analyzer 4 Updated reference range on new analyzer 5 Concerning GFR Guidelines for Americans: Normal function or mild renal disease, if clinically at risk: >/=60 mL/min Moderately decreased: 30-59 Severely decreased: 15-29 Renal failure: <15 6 Concerning GFR Guidelines: Normal function or mild renal disease, if clinically at risk: >/=60 mL/min Moderately decreased: 30-59 Severely decreased: 15-29 Renal failure: <15 Glomerular Filtration Rate (GFR) is estimated based on the MDRD equation, which assumes a steady state for creatinine as recommended by the National Kidney Disease Education Program in conjunction with the National Institutes of Health and the National Kidney Foundation. Clinical conditions in which it may be necessary to measure GFR by using clearance methods include extremes of age and body size, severe malnutrition or obesity, diseases of skeletal muscle, paraplegia or quadriplegia, vegetarian diet, rapidly changing kidney function, and calculation of the dose of potentially toxic drugs that are excreted by the kidneys. 7 Updated reference range on new analyzer 8 Beginning 04/24/06 PSA values assayed at [facility] uses chemiluminescence methodology manufactured by [employer] for use on the DXI analyzer. Values obtained with different assay methods or kits can not be used interchangeably. Serum PSA measurement is not an absolute test for malignancy. The PSA value should be used in conjunction with information available from clinical evaluation and other diagnostic procedures. 9 This sample is drawn by:ROD/JAROD 10 Concerning GFR Guidelines for Americans: Normal function or mild renal disease, if clinically at risk: >/=60 mL/min Moderately decreased: 30-59 Severely decreased: 15-29 Renal failure: <15 11 Concerning GFR Guidelines: Normal function or mild renal disease, if clinically at risk: >/=60 mL/min Moderately decreased: 30-59 Severely decreased: 15-29 Renal failure: <15 Glomerular Filtration Rate (GFR) is estimated based on the MDRD equation, which assumes a steady state for creatinine as recommended by the National Kidney Disease Education Program in conjunction with the National Institutes of Health and the National Kidney Foundation. Clinical conditions in which it may be necessary to measure GFR by using clearance methods include extremes of age and body size, severe malnutrition or obesity, diseases of skeletal muscle, paraplegia or quadriplegia, vegetarian diet, rapidly changing kidney function, and calculation of the dose of potentially toxic drugs that are excreted by the kidneys. 12 Per NCEP ATP III Guidelines: Results lower than 40 mg/dL are suggestive of increased risk for coronary artery disease. Results > or=to 60 mg/dL are considered a negative risk factor. 13 Per NCEP ATP III Guidelines: Normal Population <130 Patients with medical conditions: CHD/DM Optimal: <100 Borderline high: 130-159 High: 160-189 Very high: >189 14 Beginning 04/24/06 PSA values assayed at [facility] uses an EIA methodology manufactured by [employer] for use on the DXI analyzer. Values obtained with different assay methods or kits can not be used interchangeably. Serum PSA measurement is not an absolute test for malignancy. The PSA value should be used in conjunction with information available from clinical evaluation and other diagnostic procedures. 15 This sample is drawn by:theodore/[email or web address] 16 Concerning GFR Guidelines for Americans: Normal function or mild renal disease, if clinically at risk: >/=60 mL/min Moderately decreased: 30-59 Severely decreased: 15-29 Renal failure: <15 17 Concerning GFR Guidelines: Normal function or mild renal disease, if clinically at risk: >/=60 mL/min Moderately decreased: 30-59 Severely decreased: 15-29 Renal failure: <15 Glomerular Filtration Rate (GFR) is estimated based on the MDRD equation, which assumes a steady state for creatinine as recommended by the National Kidney Disease Education Program in conjunction with the National Institutes of Health and the National Kidney Foundation. Clinical conditions in which it may be necessary to measure GFR by using clearance methods include extremes of age and body size, severe malnutrition or obesity, diseases of skeletal muscle, paraplegia or quadriplegia, vegetarian diet, rapidly changing kidney function, and calculation of the dose of potentially toxic drugs that are excreted by the kidneys. 18 Unless otherwise specified, testing performed by [facility] [address] [place] [address] Procedures Date CPT Code Description Status 07/22/2015 17531 Measure Blood Oxygen Level Single Determination Completed 12/01/2014 35726 Admin Of Inj (Therapeutic Phrophylactic Or Diagnostic Completed Subq Inj 08/14/2014 Colonoscopy Completed 08/28/2012 07025 Measure Blood Oxygen Level Single Determination Completed Encounters Type Date Location Provider CPT E/M Dx Office Visit 08/22/2017 11:30a Reji Lozano, N.P. 97219 L03.116 Office Visit 07/25/2017 10:00a Reji Lozano, N.P. 53090 E03.9 I10 D64.9 K21.9 Office Visit 11/22/2016 8:15a Reji Lozano, N.P. 78939 E03.9 I10 L03.116 Z23 Z13.220 Z12.5 Office Visit 11/08/2016 2:15p Reji Lozano, N.P. 27574 I87.2 L30.8 Office Visit 11/03/2016 8:30a Reji Lozano, N.P. 92437 L03.116 S80.12xD Office Visit 09/26/2016 11:45a Reji Lozano, N.P. 16072 Z00.8 L03.116 Office Visit 08/16/2016 2:00p Reji Lozano, N.P. 37580 L03.115 Office Visit 07/14/2016 2:45p Reji Lozano, N.P. 09532 J01.00 Office Visit 07/04/2016 8:30a Reji Lozano, N.P. 82391 E03.9 D64.9 I10 K21.9 Office Visit 11/25/2015 8:30a Reji Lozano, N.P. 98981 Z23 R10.30 Office Visit 07/22/2015 11:00a Reji Lozano, N.P. 30101 M25.539 M89.8x8 R06.02 Office Visit 03/26/2015 10:30a Reji Lozano, N.P. 67884 L03.119 I73.9 Office Visit 01/20/2015 8:00a Reji Lozano, N.P. 85266 L03.119 Office Visit 12/01/2014 8:00a Reji Lozano, N.P. 90859 E03.9 Z23 Office Visit 09/01/2014 9:15a Reji Lozano, N.P. 91269 782.9 Office Visit 08/14/2014 8:45a Reji Lozano, N.P. 80409 V72.83 Office Visit 07/08/2014 8:30a Reji Lozano, N.P. 73517 401.1 285.9 427.89 564.00 Office Visit 11/20/2013 10:15a Reji Lozano, N.P. 82375 V04.81 682.6 Office Visit 11/14/2013 2:15p Reji Lozano, N.P. 58114 682.6 427.89 Office Visit 07/16/2013 8:15a Reji Lozano, N.P. 78497 285.9 401.1 V77.91 V76.44 Office Visit 11/20/2012 3:15p Reji Lozano, N.P. 02894 787.20 V04.81 Office Visit 08/28/2012 10:45a Reji Lozano, N.P. 80106 786.05 401.1 780.79 786.05 Plan of Care 08/22/2017 - Reji Giordano, N.P.L03.116 Cellulitis of LEFT lower limbComments :elevate and apply warm packs to area of concernfinish cipro antibiotics a s rx 'dibuprofen for pain and recheck no better 3 days or sooner if worsening at any time
[2017-09-23 09:44] VITALS: BP 127/59
--- NOTE | 2017-09-23 10:29 | UC ---
Skin Complaint HPI - HPI Summary HPI Summary: Patient presents compared by his family complaining of "hives all over". They report it began on Monday as and 3 days ago and has been getting progressively worse. He notes that is very itchy. They do report that the first spot began on his left lower lip is a blister and then he got the rash on his trunk plus she now has a couple spots on his face neck and a spot on his right upper arm. He denies any fever or chills, any arthralgia and denies any other complaints. They've been applying topical Benadryl which gives very transient relief. No other family members have any rash. He denies any new soaps foods or detergents. They have no sick contacts. - History of Current Complaint Chief Complaint: UCSkin Time Seen by Provider: 09/23/17 10:09 Stated Complaint: SKIN COMPLAINT Hx Obtained From: Patient, Family/Bluing Oven Tender Onset/Duration: Gradual Onset Timing: Constant Pain Intensity: 0 Aggravating Factor(s): Nothing Associated Signs & Symptoms: Positive: Rash - Allergy/Home Medications Allergies/Adverse Reactions: Allergies Allergy/AdvReac Type Severity Reaction Status Date / Time clindamycin Allergy Rash Verified 08/12/17 13:26 Home Medications: Home Medications Cholecalciferol TAB* [Vitamin D TAB*] 400 unit PO DAILY 09/23/17 [History Confirmed 09/23/17] Iron,Carb/Vit C/Vit B12/Folic [Iron 100 Plus Tablet] 1 each PO DAILY 09/23/17 [ History Confirmed 09/23/17] [place]-3 Fatty Acids/Fish Oil [[place] 3 1,000 mg Softgel] 1 each PO DAILY [History Confirmed 09/23/17] Sucralfate [Carafate] 1 gm PO DAILY 09/23/17 [History Confirmed 09/23/17] Review of Systems Constitutional: Negative Skin: Rash Eyes: Negative ENT: Negative Respiratory: Negative Cardiovascular: Negative Gastrointestinal: Negative Genitourinary: Negative Motor: Negative Neurovascular: Negative Musculoskeletal: Negative Neurological: Negative Psychological: Negative Is Patient Immunocompromised?: No All Other Systems Reviewed And Are Negative: Yes PMH/Surg Hx/FS Hx/Imm Hx - Additional Past Medical History Additional PMH: gout Endocrine History: Thyroid Disease, Dyslipidemia Cardiovascular History: Pacemaker/ICD, Atrial Fibrillation, Other Other Cardiovascular History: afib GI/ History: Gastroesophageal Reflux - Surgical History Surgical History: Yes Surgery Procedure, Year, and Place: PROSTECTOMY (15-16 YEARS AGO), [facility] [place]. 2003 URETHRAL DILATION, CYSTOSCOPY, INTERNAL URETHROTOMY, TUR INCISION OF BLADDER NECK, [facility] [place]. 2007 & 09/2013 ENDOSCOPY WITH FOOD REMOVAL FROM SMALL ESOPHAGUS(X2), [facility] [place]. 10/2013 CARDIOVERSION, [facility] [place]. 04/25/2014 APPENDECTOMY, [facility] - Family History Known Family History: Negative: Cardiac Disease, Hypertension, Diabetes - Social History Occupation: Retired Lives: With Family Alcohol Use: Occasionally Alcohol Amount: 4 beers and a glass of wine Substance Use Type: None Smoking Status (MU): Former Smoker Type: Pipe Have You Smoked in the Last Year: No When Did the Patient Quit Smoking/Using Tobacco: 1999 - Immunization History Vaccination Up to Date: Yes Physical Exam Triage Information Reviewed: Yes Appearance: Well-Appearing Vital Signs: Initial Vital Signs Temp 98.0 F 09/23/17 09:35 Pulse 76 09/23/17 09:35 Resp 16 09/23/17 09:35 BP 127/59 09/23/17 09:35 Pulse Ox 99 09/23/17 09:35 Vital Signs Reviewed: Yes Eyes: Positive: Conjunctiva Clear ENT: Positive: Pharynx normal, TMs normal. Negative: Nasal congestion, Nasal drainage Neck: Positive: Supple, Nontender, No Lymphadenopathy Respiratory: Positive: Lungs clear, Normal breath sounds Cardiovascular: Positive: RRR, No Murmur Abdomen Description: Positive: Nontender, No Organomegaly, Soft Bowel Sounds: Positive: Present Musculoskeletal: Positive: ROM Intact Neurological: Positive: Alert Psychological: Positive: Age Appropriate Behavior Skin Exam: Normal Skin: Positive: rashes - Patient has multiple pink spots of approximately 1/2-1 cm primarily on his trunk but also a couple spots on his right cheek right side of his neck and a spot on his right upper arm. They're slightly raised. None are vesicular and they do patric. There is no specific pattern such as a dermatome. There is also a single drying vesicle to his left lower lip. No additional lesions in his mouth. Lower extremities and palms and soles of his feet are spared. None of the areas are petechial. Course/Dx - Course Course Of Treatment: no concern for fungal, bacterial or infestation type rashes. d/w dr gibson and we agree that this is viral. will tx symptoms with very low dose benadryl-1 tsp Q6 hours prn for itch and close f/u for a recheck. - Diagnoses Provider Diagnoses: Acute rash Discharge - Sign-Out/Discharge Documenting (check all that apply): Patient Departure - Discharge Plan Condition: Stable Disposition: HOME Patient Education Materials: Viral Exanthem (ED) Referrals: eRji Giordano NP [Primary Care Provider] - 3 Days Additional Instructions: TAKE ONE TEASPOON OF BENADRYL EVERY 6 HOURS NEEDED FOR ITCHING. - Billing Disposition and Condition Condition: STABLE Disposition: Home
== END 2017-09-23 10:48 | disposition home or self-care (01) ==
LOC: UCCORT 09:27
DX: R21 Rash and other nonspecific skin eruption (principal); Z88.1 Allergy status to other antibiotic agents; Z95.811 Presence of heart assist device; K21.9 Gastro-esophageal reflux disease without esophagitis; Z87.891 Personal history of nicotine dependence
CPT/HCPCS: 99211; G0463

== ENCOUNTER → 2017-11-28 06:22 | Day surgery (SDC) | payer MEDICARE ==
--- NOTE | 2017-11-23 20:58 | HP ---
CC: Reji Giordano NP * ADMISSION HISTORY AND PHYSICAL: DATE OF ADMISSION: 11/28/17 ATTENDING SURGEON: Adráin Castellon MD * (NIR Hester, dictating). CHIEF COMPLAINT: Right inguinal hernia. HISTORY OF PRESENT ILLNESS: This is an 87-year-old male, who in early October after lifting an 80-pound salt block noted the presence of pain in the right groin, which was accompanied by a bulge, which he had not previously noted. This has continued intermittently largely related to position and activity, i.e., increased activity seems to exacerbate the symptoms. He has required multiple times of manually reducing the hernia to relieve what he refers to as discomfort, not pain. He has not had any symptoms to suggest true incarceration or strangulation. He specifically denies change in his bowel or bladder habits. His partner has occasionally had to help him with manually reducing the hernia. He was seen in the office by Dr. Castellon on 11/09/17, at which time exam confirmed the presence of a reducible right inguinal hernia. No hernia was noted on the left. Dr. Castellon discussed with him the indications for surgery, the risks, benefits, and alternatives, and the patient would like to proceed as scheduled with open repair right inguinal hernia with mesh. PAST MEDICAL HISTORY: Hypertension, gout, GERD, history of atrial fibrillation , and status post pacemaker placement in 2016 with no further episodes of atrial fibrillation. He was previously on anticoagulation, but that was stopped secondary to bleeding episodes. He was also treated with what sounds like TURP (he states he had no incisions) for "removal of my prostate for prostate cancer." PAST SURGICAL HISTORY: Other surgeries include pacemaker placement as noted above, appendectomy in 2014 via midline incision and complicated by bleeding because of concurrent use of Xarelto; tonsillectomy remotely. CURRENT MEDICATIONS: 1. Aspirin 81 mg once daily (last dose 11/21/17 in anticipation of surgery). 2. Losartan 50 mg once daily. 3. Levothyroxine 25 mcg once daily. 4. Amiodarone 200 mg once daily. 5. Allopurinol 100 mg once daily. 6. Omeprazole 20 mg once daily. 7. Furosemide 20 mg one-half tablet every day and occasionally one tablet p.r.n. for increased edema. 8. Potassium chloride 10 mEq one-half tablet every day, occasionally one full tablet on days when he takes one full tablet of furosemide. He also takes the following supplements: 1. Cranberry extract 25,000 mg. 2. [place]-3, 1000 mg. He has used sucralfate in the past, but not at the present time. DRUG ALLERGIES: CLINDAMYCIN (rash). FAMILY HISTORY: Negative for anesthesia problems, bleeding or clotting disorders. SOCIAL HISTORY: The patient lives with his long-time partner. He is a retired mckeon, who remains fairly active. He is a former pipe smoker, who quit about 14 years ago. He drinks up to two to three drinks per day on occasion, but not every day. He denies any other recreational drug use. REVIEW OF SYSTEMS: General: No recent constitutional symptoms or acute illnesses other than described in the HPI and below. Weight has been stable. HEENT: No problems reported. He is status post bilateral cataract extraction. He has full upper and lower dentures. Cardiovascular: Pacemaker in the left upper chest wall. No problems with chest pain, syncope. He is treated for hypertension. Respiratory: No chronic cough or shortness of breath. GI: No problems reported. He has had past problems related to gastric polyps including bleeding requiring transfusion at one point, but not recently. : Status post prostatectomy. No problems reported. Endocrine: No diabetes. He is on thyroid supplement. Musculoskeletal: Past history of gout, but no recent problems. PHYSICAL EXAMINATION GENERAL: Well-nourished, well-developed elderly male, in no acute distress. VITAL SIGNS: Height 5 feet 11 inches, weight 175 pounds. Temperature 97.7, blood pressure 142/60, pulse 84, respirations 18. HEENT: Pupils equal and round, reactive. EOM's intact. No conjunctival pallor. Oropharynx: Full upper and lower dentures. No intraoral lesions. NECK: No lymphadenopathy, thyromegaly, or masses. LUNGS: Clear to auscultation. No rales or wheezes. HEART: Regular rate and rhythm. No murmur appreciated. Pacemaker in left upper chest wall. ABDOMEN: Soft, nontender to palpation. There is a reducible, minimally tender right inguinal hernia in the right groin. EXTREMITIES: No edema. Peripheral pulses not specifically checked. BACK: No spinous process or CVA tenderness. GENITALIA: Otherwise not examined. RECTAL: Not done. NEUROLOGICAL: Grossly intact. SKIN: Warm and dry. He does have a number of actinic keratotic appearing lesions on the scalp and forehead, but none that look suspicious. He does have hyperpigmentation of both lower extremities consistent with chronic venous stasis. IMPRESSION: Right inguinal hernia. PLAN: Open repair, right inguinal hernia with mesh. NIR HESTER [id number]/[facility] #: [id number] [facility]ICAL CENTERAlisia
[~2017-11-28 06:22] MED LIST: Acetaminophen TAB* 325 MG PO PRN; Buffered Lidocaine 0.9% SYRIN* 5 ML/SYR SYRINGE INTRADERM ONE; Buffered Lidocaine 0.9% SYRIN* 5 ML/SYR SYRINGE ONE; Bupivacaine 0.25% EPI 200,000* 30 ML SDV ONE; Bupivacaine 0.5% SDV PF* 30ML VIAL ONE; Lidocain 1% EPI 1:100,000 * 30 ML MDV ONE; Lidocaine 1% INJ* 10 MG/ML 30 ML SDV ONE; Lidocaine 2% PF * 5 ML VIAL ONE; Naloxone* 0.4 MG/ML 1 ML VIAL IV PRN; Propofol* 10 MG/ML 20 ML BTL IV PUSH ONE; ceFAZolin 2 GM in NS PREMIX(*) 2 GM/100 ML BAG IVPB ONE; fentaNYL* 50 MCG/ML 2 ML VIAL (100 MCG VIAL) ONE
--- NOTE | 2017-11-28 09:00 | OP ---
Operative Report - Blank - Operative Report Date of Operation: 11/28/17 Note: Brief Operative Note Preop Dx: right inguinal hernia Postop Dx: same, indirect Procedure: open repair RIH w/ mesh (Progrip) Anesthesia: local MAC Surgeon: Ravinder On Air Personality: NIR Davies Fluids: EBL: < 20 ml Specimen: hernia sac Drains: none Findings: dictated
[2017-11-28 10:05] VITALS: BP 165/76
--- NOTE | 2017-11-29 08:22 | OP ---
CC: Reji Giordano NP * DATE OF OPERATION: 11/28/17 - [facility] DATE OF : 28 SURGEON: Adrián Castellon MD FEATHER MAKER: NIR Hester ANESTHESIOLOGIST: Johny Topete MD ANESTHESIA: Local MAC. PRE-OP DIAGNOSIS: Right inguinal hernia. POST-OP DIAGNOSIS: Right inguinal hernia. OPERATIVE PROCEDURE: Open repair of right inguinal hernia with mesh. ESTIMATED BLOOD LOSS: Less than 20 mL. IV FLUIDS: Crystalloids. SPECIMEN: Hernia sac. DRAINS: None. COMPLICATIONS: None. COUNTS: Instrument, needle, and sponge counts correct. DESCRIPTION OF PROCEDURE: The patient was brought to the operative room and placed on the table supine. Sequential compression devices were placed on both lower extremities. Intravenous sedation was administered. His right groin was prepped and draped in the usual sterile fashion. He received appropriate intravenous antibiotics. Time-out was performed. Local anesthetic was infiltrated as a field block in the right groin. An oblique incision was created approximately 6 cm long and subcutaneous tissues were divided with cautery. External oblique aponeurosis was identified and additional anesthetic was infiltrated beneath this. The aponeurosis was opened in the line of its fibers through the superficial ring. Underlying the aponeurosis were 2 nerve structures that were each isolated, subsequently divided and ligated as they were unable to be mobilized adequately. The contents of the inguinal canal were isolated with a [place] drain at the level of the pubic tubercle. An indirect inguinal hernia sac was identified. Spermatic cord structures were dissected free from this. The sac was twisted upon itself, ligated with 2-0 Polysorb and transacted distally with the sac submitted to Pathology. The proximal sac was allowed to retract the element of deep ring. Repair was then performed using the ProGrip right side mesh and this was positioned to cover the entire floor of the defect with the mesh encircling the spermatic cord. Subsequently, after assuring hemostasis, the external oblique was closed with 2-0 Vicryl running and Jess's was closed with 3-0 Vicryl in an interrupted. Skin was closed with 4-0 Monocryl running. Steri-Strips were applied. The patient tolerated the procedure well and was awakened and transferred to Recovery in stable condition. [id number]/[facility] #: [id number] [facility]
== END | disposition home or self-care (01) ==
LOC: OR 06:22
PROVIDERS: ATTEND Surgery
DX: K40.90 Unilateral inguinal hernia, without obstruction or gangrene, not specified as recurrent (principal); I10 Essential (primary) hypertension; I48.91 Unspecified atrial fibrillation; Z95.0 Presence of cardiac pacemaker; Z79.82 Long term (current) use of aspirin; Z79.01 Long term (current) use of anticoagulants
CPT/HCPCS: 88302; C1781; J0690; J2704; J3010

== ENCOUNTER 2018-08-24 12:36 | Emergency (ER) | payer MEDICARE ==
--- OUTSIDE RECORDS SUMMARY | 2018-08-24 12:52 | XMS REPORT | Continuity of Care Document ---
:1930 External Reference #:[id number] Author Name Gudelia Beavers Care Team Providers Name Role Phone Reji Giordano NP Primary Care Physician Unavailable Payers Date Identification Numbers Payment Provider Subscriber Effective: 1994 Policy Number: [id number] Medicare Yvette Bonilla PayID: [id number] [address] [place] [address] Effective: 2012 Policy Number: [facility] Yvette Bonilla [id number] PayID: [id number] [address] [place] [address] Problems Active Problems Provider Date Dyspnea Cecilio Angel M.D. Onset: 07/24/2013 Atrial fibrillation Cecilio Angel M.D. Onset: 07/24/2013 Family History Date Family Member(s) Observation Comments General Cancer General Diabetes Social History Type Date Description Comments Sex Unknown Marital Status Lives With Female Partner Occupation Retired Occupation [employer] ETOH Use Occasionally consumes alcohol Tobacco Use Start: Unknown End: Patient is a former smoker Unknown Recreational Drug Use Denies Drug Use Tobacco Use Start: Unknown quit [id number] Smoking Status Reviewed: 08/22/18 quit [id number] Exercise Type/Frequency Exercises regularly Allergies, Adverse Reactions, Alerts Active Allergies Reaction Severity Comments Date Clindamycin Hives Moderate 07/25/2014 Inactive Allergies NKDA 08/15/2013 Medications Active Medications SIG Qnty Indications Ordering Date Provider Losartan Potassium 1 by mouth every 90tabs Cecilio Cha 07/03/2015 50mg day Iker Angel Tablets Omeprazole 1 by mouth daily 30tabs Unknown 20mg Tablets in the morning in DR empty stomach Allopurinol 1 by mouth every 90tabs Unknown 100mg day Tablets Amiodarone HCL 1/2 by mouth every 90tabs Cecilio Cha 200mg day ( decreased Iker Angel Tablets [facility] 03/2018) Levothyroxine Sodium 1 by mouth every Unknown day 25mcg Tablets Furosemide 2 tablet po daily Unknown 20mg Tablets ( increase Reji Giordano 08/22/18) Potassium Chloride ER 2 tab by mouth Unknown every day 10Meq Capsules ER (increase 07/2618 Reji Giordano [employer]OR) Aspirin Enteric 1 by mouth every Unknown Coated Adult Low day Strength 81mg Tablets DR Iron (Ferrous 1 daily Unknown Sulfate) 142(45Fe) mg Tablets ER [place] 3 1 by mouth daily Unknown 1000mg Capsules Cranberry 1 by mouth every Unknown 25,000mg day Capsule Anoro Ellipta 1 inhalation daily Unknown 62.5-25mcg/Inh Aerosol Vitamin D3 1 po daily Unknown 400Unit Chewtabs Stool Softener 1 po as needed Unknown History Medications Oxycodone-Acetaminophen 1 by mouth 15tabs K40.90 Sarika Elizondo 12/04/2017 - 5-325mg Tablets every 4- 6 MD Jarrod Unknown hours as needed for pain Hydrocodone-Acetaminophen 1 tablet by 8tabs Sarika Elizondo 11/23/2017 - 5-325mg mouth every 4-6 MD Jarrod 12/05/2017 Tablets hours as needed for moderately severe pain Vitamin D3 1 tablets Cecilio Cha 11/26/2015 - 400Iu Tablets daily. Iker Angel Unknown Vitamin E 1 by mouth Cecilio Cha 07/24/2013 - 400Units Capsules every day Iker Angel 03/27/2014 Xarelto 1 by mouth 90tabs Cecilio Cha 09/21/2012 - 20mg Tablets every day (No Iker Angel Unknown longer using ) Vitamin D3 Unknown - 400Unit Tablets 12/05/2017 Mupirocin apply thin film Unknown - 2% Ointment of ointment to Unknown the affected area(s) three times daily for 10-14 days Cipro 1 by mouth Unknown - 500mg Tablets twice a day for Unknown 10 days Sucralfate 1 by mouth once Unknown - 1gm Tablets a day as needed 08/21/2018 Vitamin E 1 daily Unknown - 400Unit Chewtabs 09/12/2015 Aspirin Adult Low Dose 1 by mouth Unknown - 81mg Tablets DR every day 09/12/2015 Turmeric 1 by mouth Unknown - 500mg Capsules every day 07/05/2016 Cranberry 1 daily Unknown - 25,000mg Unknown Losartan Potassium 1 by mouth 90tabs Cecilio Cha - 25mg Tablets every day Iker Angel 07/03/2015 Green Source daily Unknown - Tablets 07/02/2015 Black Manning daily Unknown - Capsule Unknown Vitamin D 1 by mouth Unknown - 400Unit Capsules every day 11/27/2015 Aspir-81 1 by mouth Unknown - 81mg Tablets DR every day 03/27/2014 Atenolol 1 by mouth 90tabs Unknown - 50mg Tablets every day 12/10/2013 Medications Administered in Office Medication SIG Qnty Indications Ordering Provider Date Inj, Regadenoson, 0.1 MG Cecilio Angel M.D. 09/12/2012 Injection Technetium TC 99M Tetrofosmin, Cecilio Angel M.D. 09/12/2012 Per Unit Dose Up To 40 Millicuries Injection Vital Signs Date Vital Result Comment 08/22/2018 8:21am Weight 194.00 lb with shoes Heart Rate 70 /min BP Systolic Sitting 120 mmHg Lue reg cuff BP Diastolic Sitting 60 mmHg Lue reg cuff BP Systolic Standing 122 mmHg Lue reg cuff BP Diastolic Standing 68 mmHg Lue reg cuff Respiratory Rate 16 /min Ejection Fraction 60-65% date 07/31/15 echo 12/11/2017 11:11am Heart Rate 72 /min Respiratory Rate 18 /min Body Temperature 97.8 F 12/06/2017 3:27pm Weight 183.00 lb Heart Rate 88 /min BP Systolic Sitting 132 mmHg left arm manual cuff BP Diastolic Sitting 82 mmHg left arm manual cuff Pain Level 2 12/04/2017 11:45am Heart Rate 78 /min BP Systolic Sitting 142 mmHg BP Diastolic Sitting 70 mmHg Respiratory Rate 18 /min Body Temperature 97.4 F 11/23/2017 1:01pm Height 67 inches 5'7" Weight 175.00 lb Heart Rate 84 /min BP Systolic Sitting 142 mmHg BP Diastolic Sitting 60 mmHg Respiratory Rate 18 /min Body Temperature 97.7 F BMI (Body Mass Index) 27.4 kg/m2 11/09/2017 10:23am Height 67 inches 5'7" Weight 175.00 lb Heart Rate 76 /min BP Systolic 130 mmHg BP Diastolic 60 mmHg Respiratory Rate 18 /min Body Temperature 98.3 F BMI (Body Mass Index) 27.4 kg/m2 12/07/2016 10:54am Height 69 inches 5'9" Weight 175.00 lb with shoes Heart Rate 88 /min BP Systolic Sitting 178 mmHg Rue reg cuff BP Diastolic Sitting 88 mmHg Rue reg cuff BP Systolic Standing 184 mmHg Rue reg cuff BP Diastolic Standing 90 mmHg Rue reg cuff Respiratory Rate 17 /min BMI (Body Mass Index) 25.8 kg/m2 Ejection Fraction 60-65% 07/31/2015-echo 07/06/2016 10:18am Height 69 inches 5'9" Weight 168.00 lb with shoes Heart Rate 66 /min BP Systolic Sitting 152 mmHg BP Diastolic Sitting 66 mmHg BP Systolic Standing 156 mmHg BP Diastolic Standing 68 mmHg Respiratory Rate 17 /min BMI (Body Mass Index) 24.8 kg/m2 Ejection Fraction 60-65% 07/31/2015-echo 11/27/2015 8:48am Height 69 inches 5'9" Weight 185.50 lb with shoes Heart Rate 58 /min BP Systolic Sitting 134 mmHg Ra reg cuff BP Diastolic Sitting 64 mmHg Ra reg cuff BP Systolic Standing 136 mmHg Ra reg cuff BP Diastolic Standing 68 mmHg Ra reg cuff Respiratory Rate 18 /min BMI (Body Mass Index) 27.4 kg/m2 Waist to Hip Ratio 60-65% 07/31/2015 10/29/2015 7:45am Height 69 inches 5'9" Weight 192.00 lb with shoes Heart Rate 58 /min BP Systolic Sitting 130 mmHg Ra reg cuff BP Diastolic Sitting 66 mmHg Ra reg cuff BP Systolic Standing 142 mmHg Ra reg cuff BP Diastolic Standing 66 mmHg Ra reg cuff Respiratory Rate 18 /min BMI (Body Mass Index) 28.4 kg/m2 Ejection Fraction 60-65% 08/27/2015 10/13/2015 1:21pm Height 69 inches 5'9" Weight 189.00 lb w/ shoes Heart Rate 58 /min BP Systolic Sitting 180 mmHg Rue, reg cuff BP Diastolic Sitting 76 mmHg Rue, reg cuff BP Systolic Standing 164 mmHg Rue BP Diastolic Standing 70 mmHg Rue Respiratory Rate 16 /min O2 % BldC Oximetry 97 % on Ra BMI (Body Mass Index) 27.9 kg/m2 Ejection Fraction 60-65% as of 07/31/15 echo 08/07/2015 11:32am Height 69 inches 5'9" Weight 189.31 lb Heart Rate 66 /min BP Systolic Sitting 160 mmHg Ra reg cuff BP Diastolic Sitting 90 mmHg Ra reg cuff BP Systolic Standing 178 mmHg Ra reg cuff BP Diastolic Standing 96 mmHg Ra reg cuff Respiratory Rate 16 /min BMI (Body Mass Index) 28.0 kg/m2 Ejection Fraction 60-65% 07/31/15 07/03/2015 12:43pm Height 69 inches 5'9" Weight 187.50 lb with shoes Heart Rate 64 /min BP Systolic Sitting 168 mmHg Ra reg cuff BP Diastolic Sitting 74 mmHg Ra reg cuff BP Systolic Standing 168 mmHg Ra reg cuff BP Diastolic Standing 72 mmHg Ra reg cuff Respiratory Rate 16 /min BMI (Body Mass Index) 27.7 kg/m2 Ejection Fraction 67% 08/05/13 11/27/2014 8:07am Height 69 inches 5'9" Weight 189.00 lb no shoes Heart Rate 76 /min BP Systolic Sitting 144 mmHg Ra, reg cuff BP Diastolic Sitting 78 mmHg Ra, reg cuff BP Systolic Standing 152 mmHg Ra BP Diastolic Standing 76 mmHg Ra Respiratory Rate 16 /min BMI (Body Mass Index) 27.9 kg/m2 Ejection Fraction 67% 08/05/2013 07/25/2014 9:39am Height 69 inches 5'9" Heart Rate 62 /min reg BP Systolic Sitting 142 mmHg Ra, reg cuff BP Diastolic Sitting 70 mmHg Ra, reg cuff BP Systolic Standing 140 mmHg Ra BP Diastolic Standing 70 mmHg Ra Respiratory Rate 18 /min Ejection Fraction 67% calculated Ef as of 08/05/13 12/11/2013 10:04am Height 69 inches 5'9" Weight 184.00 lb with boots BP Systolic Sitting 144 mmHg Ra reg cuff BP Diastolic Sitting 76 mmHg Ra reg cuff BP Systolic Standing 146 mmHg Ra reg cuff BP Diastolic Standing 80 mmHg Ra reg cuff BMI (Body Mass Index) 27.2 kg/m2 2013 9:54am Height 69 inches 5'9" Weight 182.00 lb with shoes Heart Rate 60 /min BP Systolic Sitting 154 mmHg Ra reg cuff sit BP Diastolic Sitting 80 mmHg Ra reg cuff sit BP Systolic Lying Down 134 mmHg Ra reg cuff stand BP Diastolic Lying Down 60 mmHg Ra reg cuff stand Respiratory Rate 16 /min BMI (Body Mass Index) 26.9 kg/m2 09/18/2013 12:45pm Height 69 inches 5'9" Weight 183.00 lb no shoes Heart Rate 58 /min BP Systolic Sitting 110 mmHg LA, reg cuff BP Diastolic Sitting 68 mmHg LA, reg cuff BP Systolic Standing 100 mmHg LA BP Diastolic Standing 58 mmHg LA Respiratory Rate 16 /min O2 % BldC Oximetry 96 % @rest BMI (Body Mass Index) 27.0 kg/m2 08/15/2013 9:55am Height 69 inches 5'9" Weight 183.00 lb no shoes Heart Rate 65 /min BP Systolic Sitting 144 mmHg LA, reg cuff BP Diastolic Sitting 82 mmHg LA, reg cuff BP Systolic Standing 65 mmHg 65 BP Diastolic Standing 65 mmHg 65 Respiratory Rate 16 /min BMI (Body Mass Index) 27.0 kg/m2 07/24/2013 8:12am Height 69 inches 5'9" Weight 186.00 lb without shoes Heart Rate 65 /min BP Systolic Sitting 136 mmHg BP Diastolic Sitting 84 mmHg BP Systolic Standing 128 mmHg BP Diastolic Standing 80 mmHg Respiratory Rate 18 /min BMI (Body Mass Index) 27.5 kg/m2 Results Test Date Facility Test Result H/L Range Note Laboratory test 11/28/2017 [facility] Surgical SEE RESULT [address] [place] [address] [phone] CBC Auto Diff 07/21/2016 [facility] White Blood 8.0 10^3/uL N 3.5-10.[address] [place] [address] [phone] Red Blood Count 3.79 10^6/uL Low 4.0-5.4 Hemoglobin 11.2 g/dL Low 14.0-18.0 Hematocrit 34 % Low 42-52 Mean Corpuscular Volume 89 fL N 80-94 Mean Corpuscular Hemoglobin 30 pg N 27-31 Mean Corpuscular HGB Conc 33 g/dL N 31-36 Red Cell Distribution Width 18 % High 10.5-15 Platelet Count 146 10^3/uL Low 150-450 Mean Platelet Volume 7 um3 Low 7.4-10.4 Abs Neutrophils 6.3 10^3/uL N 1.5-7.7 Abs Lymphocytes 0.5 10^3/uL Low 1.0-4.8 Abs Monocytes 0.8 10^3/uL N 0-0.8 Abs Eosinophils 0.3 10^3/uL N 0-0.6 Abs Basophils 0.1 10^3/uL N 0-0.2 Abs Nucleated RBC 0 10^3/uL N Granulocyte % 78.8 % N 38-83 Lymphocyte % 6.2 % Low 25-47 Monocyte % 9.8 % High 1-9 Eosinophil % 4.0 % N 0-6 Basophil % 1.2 % N 0-2 Nucleated Red Blood Cells % 0 N Laboratory test 07/21/2016 [facility] Troponin-I 0.01 ng/mL N <0.04 [address] (TnI) [place] [address] [phone] Comp Metabolic 07/21/2016 [facility] Sodium 131 mmol/L Low 133 -[address] [place] [address] [phone] Potassium 4.0 mmol/L N 3.5-5.0 Chloride 99 mmol/L Low 101-111 Co2 Carbon Dioxide 25 mmol/L N 22-32 Anion Gap 7 mmol/L N 2-11 Glucose 112 mg/dL High 70-100 Blood Urea Nitrogen 22 mg/dL N 6-24 Creatinine 0.97 mg/dL N 0.67-1.17 BUN/Creatinine Ratio 22.7 High 8-20 Calcium 8.4 mg/dL Low 8.6-10.3 Total Protein 6.8 g/dL N 6.4-8.9 Albumin 3.4 g/dL N 3.2-5.2 Globulin 3.4 g/dL N 2-4 Albumin/Globulin Ratio 1.0 N 1-3 Total Bilirubin 0.90 mg/dL N 0.2-1.0 Alkaline Phosphatase 77 U/L N 34-104 Alt 37 U/L N 7-52 Ast 50 U/L High 13-39 Egfr Non- 73.4 N >60 Egfr 94.4 N >60 3 Inr/Protime 07/21/2016 [facility] Inr 1.12 High 0.89-1.[address] [place] [address] [phone] Laboratory test 07/21/2016 [facility] Partial 33.6 N 26.0- 36.[address] [place] [address] Time PTT [phone] B-Type Natriuretic Peptide BNP 292 pg/mL High 4 Lactic Acid 0.8 mmol/L N 0.5-2.0 5 C Reactive Protein 6.05 mg/L High < 5.00 6 Urinalysis Profile 07/21/2016 [facility] Urine Color Yellow N [address] [place] [address] [phone] Urine Appearance Clear N Urine Specific [place] 1.013 N 1.010-1.030 Urine pH 5.0 N 5-9 Urine Urobilinogen Negative N Negative Urine Ketones Negative N Negative Urine Protein Negative N Negative Urine Leukocytes Negative N Negative Urine Blood 1+ Abnormal Negative Urine Nitrite Negative N Negative Urine Bilirubin Negative N Negative Urine Glucose Negative N Negative Urine White Blood Cell Absent N Absent Urine Red Blood Cell Trace(0-2/hpf) N Absent Urine Bacteria Absent N Absent Laboratory test 07/21/2016 [facility] Blood Culture SEE RESULT [address] [place] [address] [phone] Laboratory test 10/29/2015 [facility] TSH (Thyroid 2.63 mcIU/mL N 0.34-[address] Stim Horm) .60 [place] [address] [phone] Laboratory test 10/29/2015 [facility] Ach Receptor 0.00 nmol/L N <=0.02 [address] [place] [address] [phone] Creatine Kinase(CK) 47 U/L N 10-223 9 CBC Auto Diff 10/13/2015 [facility] White Blood 4.6 10^3/uL N 3.5-10.[address] [place] [address] [phone] Red Blood Count 4.10 10^6/uL N 4.0-5.4 Hemoglobin 10.3 g/dL Low 14.0-18.0 Hematocrit 32 % Low 42-52 Mean Corpuscular Volume 78 fL Low 80-94 Mean Corpuscular Hemoglobin 25 pg Low 27-31 Mean Corpuscular HGB Conc 32 g/dL N 31-36 Red Cell Distribution Width 16 % High 10.5-15 Platelet Count 163 10^3/uL N 150-450 Mean Platelet Volume 7 um3 Low 7.4-10.4 Abs Neutrophils 3.2 10^3/uL N 1.5-7.7 Abs Lymphocytes 0.6 10^3/uL Low 1.0-4.8 Abs Monocytes 0.6 10^3/uL N 0-0.8 Abs Eosinophils 0.2 10^3/uL N 0-0.6 Abs Basophils 0.1 10^3/uL N 0-0.2 Abs Nucleated RBC 0 10^3/uL N Granulocyte % 68.7 % N 38-83 Lymphocyte % 12.4 % Low 25-47 Monocyte % 12.4 % High 1-9 Eosinophil % 5.3 % N 0-6 Basophil % 1.2 % N 0-2 Nucleated Red Blood Cells % 0 N Basic Metabolic 10/13/2015 [facility] Sodium 125 mmol/L Low 133-[address] [place] [address] [phone] Potassium 4.5 mmol/L N 3.5-5.0 Chloride 93 mmol/L Low 101-111 Co2 Carbon Dioxide 26 mmol/L N 22-32 Anion Gap 6 mmol/L N 2-11 Glucose 101 mg/dL High 70-100 Blood Urea Nitrogen 14 mg/dL N 6-24 Creatinine 1.06 mg/dL N 0.67-1.17 BUN/Creatinine Ratio 13.2 N 8-20 Calcium 8.7 mg/dL N 8.6-10.3 Egfr Non- 66.2 N >60 Egfr 85.2 N >60 10 Laboratory test 10/13/2015 [facility] B-Type 440 pg/mL High [address] [place] [address] Peptide BNP [phone] Laboratory test 10/08/2015 [facility] TSH (Thyroid 2.77 N 0.34 - finding [address] Stim Horm) mcIU/mL 5.60 [place] [address] [phone] Basic Metabolic 09/20/2012 [facility] Sodium 137 mmol/L 133- [address] [place] [address] [phone] Potassium 4.8 mmol/L 3.5-5.0 Chloride 103 mmol/L 101-111 Co2 Carbon Dioxide 30.0 mmol/L 22-32 Anion Gap 4.0 mmol/L 2-11 Glucose 102 mg/dL High 70-100 Blood Urea Nitrogen 17 mg/dL 6-24 Creatinine 0.90 mg/dL 0.50-1.40 BUN/Creatinine Ratio 18.9 8-20 Calcium 9.3 mg/dL 8.1-9.9 Egfr Non- 80.8 >60 Egfr 103.9 >60 12 CBC No Diff 09/20/2012 [facility] White Blood 8.0 10^3/uL 4.8 -10.[address] [place] [address] [phone] Red Blood Count 4.08 10^6/uL 4.0-5.4 Hemoglobin 13.0 g/dL Low 14.0-18.0 Hematocrit 38 % Low 42-52 Mean Corpuscular Volume 93 fL 80-94 Mean Corpuscular Hemoglobin 32 pg High 27-31 Mean Corpuscular HGB Conc 34 g/dL 31-36 Red Cell Distribution Width 14 % 10.5-15 Platelet Count 185 10^3/uL 150-450 Mean Platelet Volume 8 um3 7.4-10.4 1 SEE RESULT BELOW Name: YVETTE BONILLA : [address]: Adrián Castellon MD Acct: [id number] Unit: [id number] AGE: 87 Location: OR Re11/28/17 SEX: M Status: REG SDC SPEC: [id number] TERRANCE: 11/28/17- SUBM DR: Adrián Castellon MD REQ: [id number] RECD: 11/28/17 STATUS: SOUT _ ORDERED: LEVEL 2 FINAL DIAGNOSIS Right inguinal region, herniorrhaphy: -- Hernia sac. PRE-OPERATIVE DIAGNOSIS Right inguinal hernia GROSS DESCRIPTION The specimen is received in formalin labeled, Right Inguinal Hernia Sac, and consists of a 4.0 by up to 2.5 x 0.6 cm butt-pink wrinkled saccular portion of fibromembranous tissue with scant adherent yellow fat. [facility] Animal Care sections, one cassette. Signed by and Reported on: Giancarlo Layton MD 05/14 1559 END OF REPORT DEPARTMENT OF PATHOLOGY, [address] [place] [address] Giancarlo Layton M.D. Director [facility] # [id number] 2 99th percentile=0.04 ng/mL Troponin results at [facility] and [facility] are not interchangeable. 3 Because ethnic data is not always readily available, this report includes an eGFR for both -Americans and non- Americans. The National Kidney Disease Education Program (NKDEP) does not endorse the use of the MDRD equation for patients that are not between the ages of 18 and 70, are , have extremes of body size, muscle mass, or nutritional status, or are non- or non-. According to the National Kidney Foundation, irrespective of diagnosis, the stage of the disease is based on the level of kidney function: Stage Description GFR(mL/min/1.73 m(2)) 1 Kidney damage with normal or decreased GFR 90 2 Kidney damage with mild decrease in GFR 60-89 3 Moderate decrease in GFR 30-59 4 Severe decrease in GFR 15-29 5 Kidney failure <15 (or dialysis) 4 >100 to <200 pg/mL: likely compensated congestive heart failure (CHF) 200 to 400 pg/mL: likely moderate CHF >400 pg/mL: likely moderate to severe CHF 5 [facility] Severe Sepsis and Septic Shock Management Bundle Measure requires all lactic acids initially measuring >2.0 mmol/L be repeated. 6 Acute inflammation: >10.00 7 SEE RESULT BELOW Name: YVETTE BONILLA : [address]: Olvin Jacobs MD Acct: [id number] Unit: [id number] AGE: 85 Location: ED Re07/21/16 SEX: M Status: DEP ER SPEC: [id number] TERRANCE: 07/21/[address]: Olvin Jacobs MD REQ: [id number] RECD: 07/21/16 STATUS: BRENT ÁLVAREZ DR: Cecilio Giordano PLASTER [employer]DEL AND [employer]KER _ SOURCE: BLOOD,VENO SPDESC: ORDERED: Blood Cult Procedure Result Reported Site Aerobic Culture Bottle Final 07/26/16941 ML No Growth Day 5 Anaerobic Culture Bottle Final 07/26/16941 ML No Growth Day 5 * ML - MAIN LAB ([facility]) . END OF REPORT * ML=Testing performed at Main Lab DEPARTMENT OF PATHOLOGY, [address] [place] [address] Giancarlo Layton M.D. Director [facility] # [id number] ADDITIONAL INFORMATION This test was developed and its performance characteristics determined by [facility] in a manner consistent with CLIA requirements. This test has not been cleared or approved by the U.S. Food and Drug Administration. PDF Report available at: [email or web address] Test Performed by: [place] [id number] [facility]: Arnulfo Gallegos II, M.D., Ph.D. 9 soon 10 Because ethnic data is not always readily available, this report includes an eGFR for both -Americans and non- Americans. The National Kidney Disease Education Program (NKDEP) does not endorse the use of the MDRD equation for patients that are not between the ages of 18 and 70, are , have extremes of body size, muscle mass, or nutritional status, or are non- or non-. According to the National Kidney Foundation, irrespective of diagnosis, the stage of the disease is based on the level of kidney function: Stage Description GFR(mL/min/1.73 m(2)) 1 Kidney damage with normal or decreased GFR 90 2 Kidney damage with mild decrease in GFR 60-89 3 Moderate decrease in GFR 30-59 4 Severe decrease in GFR 15-29 5 Kidney failure <15 (or dialysis) 11 >100 to <200 pg/mL: likely compensated congestive heart failure (CHF) 200 to 400 pg/mL: likely moderate CHF >400 pg/mL: likely moderate to severe CHF 12 Because ethnic data is not always readily available, this report includes an eGFR for both -Americans and non- Americans. The National Kidney Disease Education Program (NKDEP) does not endorse the use of the MDRD equation for patients that are not between the ages of 18 and 70, are , have extremes of body size, muscle mass, or nutritional status, or are non- or non-. According to the National Kidney Foundation, irrespective of diagnosis, the stage of the disease is based on the level of kidney function: Stage Description GFR(mL/min/1.73 m(2)) 1 Kidney damage with normal or decreased GFR 90 2 Kidney damage with mild decrease in GFR 60-89 3 Moderate decrease in GFR 30-59 4 Severe decrease in GFR 15-29 5 Kidney failure <15 (or dialysis) Procedures Date Code Description Status 08/22/2018 92921 EKG Tracing & Interpretation Completed 12/06/2017 88142 EKG Tracing & Interpretation Completed 11/28/2017 62320 Repair Hernia Inguinal > 5Yrs, Reducible Completed 11/28/2017 07632 Repair Hernia Inguinal > 5Yrs, Reducible Completed 12/02/2016 53875 Pace Maker Eval W/Iterative Adjment Dual Lead Completed 07/06/2016 16226 EKG Tracing & Interpretation Completed 11/27/2015 65663 EKG Tracing & Interpretation Completed 10/20/2015 53888 Spirometry Incl Graphic Record Completed 10/20/2015 12277 Plethysmography Determination Lung Volumes & Per Airway Completed Resist 10/20/2015 85688 Diffusing Capacity Completed 10/13/2015 69953 EKG Tracing & Interpretation Completed 07/31/2015 43910 ECHO Transthoracic, Real-Time 2D With Doppler And Color Completed Flow 07/03/2015 08573 EKG Tracing & Interpretation Completed 04/17/2015 31233 EKG Tracing & Interpretation Completed 07/25/2014 97150 EKG Tracing & Interpretation Completed 12/11/2013 91124 EKG Tracing & Interpretation Completed 11/26/2013 19856 Cardioversion Completed 11/26/2013 63442 EKG Tracing & Interpretation Completed 11/26/2013 43698 EKG Tracing & Interpretation Completed 2013 96802 EKG Tracing & Interpretation Completed 09/23/2013 33438 EKG, Interpretation Only Completed 09/23/2013 38627 Cardioversion Completed 09/18/2013 91591 EKG Tracing & Interpretation Completed 08/05/2013 86369 ECHO Transthoracic, Real-Time 2D With Doppler And Color Completed Flow 07/31/2013 27020 Holter Monitoring 24 HR New Completed 07/24/2013 74935 EKG Tracing & Interpretation Completed 11/05/2012 58674 EKG Tracing & Interpretation Completed 10/22/2012 50325 EKG, Interpretation Only Completed 10/22/2012 84008 Cardioversion Completed 09/24/2012 35264 Holter Monitoring 24 HR New Completed 09/14/2012 10044 ECHO Transthoracic, Real-Time 2D With Doppler And Color Completed Flow 09/12/2012 89189 Stress Test Completed 09/12/2012 17394 Myocardial Perfusion Imaging Tomographic (Spect) Multiple Completed Studies 09/07/2012 93194 ECHO Stress Test Incl Perf Contiuous ekg Monitoring W/Phys Completed Superv Encounters Type Date Location Provider Dx Diagnosis Office Visit 12/06/2017 [facility] Cecilio Cha Brand, 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 breath I48.0 Paroxysmal atrial fibrillation Z95.0 Presence of cardiac pacemaker Office Visit 07/06/2016 10:30a [facility] Cecilio Cha I48.0 Paroxysmal atrial Of Assistant Toddler Teacher Iker Angel fibrillation R06.02 Shortness of breath Z95.0 Presence of cardiac pacemaker Office Visit 11/27/2015 9:15a [facility] Cecilio Cha I48.0 Paroxysmal atrial Of Vika Angel M.D. fibrillation R06.02 Shortness of breath Office Visit 10/29/2015 8:00a [facility] Cecilio Cha R06.02 Shortness of Of Assistant Toddler Teacher Iker Angel breath I48.0 Paroxysmal atrial fibrillation Office Visit 10/13/2015 1:45p [facility] Cecilio Cha R06.02 Shortness of Of Assistant Toddler Teacher AT [facility] [place] Angel breath I48.0 Paroxysmal atrial fibrillation I50.33 Acute on chronic diastolic (congestive) heart failure Office Visit 08/07/2015 11:45a [facility] Cecilio Cha I48.0 Paroxysmal atrial Of Assistant Toddler Teacher Stanley MLindsey fibrillation R06.02 Shortness of breath R60.0 Localized edema Office Visit 07/03/2015 1:00p [facility] Cecilio Cha I48.0 Paroxysmal atrial Of Assistant Toddler Teacher Iker Angel fibrillation R06.02 Shortness of breath I50.33 Acute on chronic diastolic (congestive) heart failure R60.0 Localized edema Office Visit 11/27/2014 8:30a [facility] Cecilio Cha 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 Fibrillation 786.05 Shortness Of Breath Office Visit 12/11/2013 10:00a [facility] Cecilio Cha 427.31 Atrial Of Vika Angel M.D. Fibrillation 794.31 Electrocardiogram (ECG) (EKG) Abnormal Office Visit 2013 9:45a [facility] Cecilio Cha 427.Trev Atrial Of Vika Anegl M.D. Fibrillation Office Visit 09/18/2013 12:45p [facility] Cecilio Cha 427.Trev Atrial Of Vika Angel M.D. Fibrillation 786.05 Shortness Of Breath Office Visit 08/15/2013 10:00a [facility] Cecilio Cha 427.Trev Atrial Of Vika Angel M.D. Fibrillation 786.05 Shortness Of Breath Office Visit 07/24/2013 8:00a [facility] Cecilio Cha 427.Trev Atrial Of Vika Angel M.D. 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 Fibrillation Office Visit 09/20/2012 2:00p [facility] Cecilio Cha 427.Trev Atrial Of Vika Angel M.D. Fibrillation Plan of Treatment Future Appointment(s):09/18/2018 3:00 pm - Pamela Garay N.PIvan at [facility]12/05/2018 1:30 pm - Cecilio Angel M.D. at [facility]08/22/2018 - Cecilio Angel M.D.Z95.0 Presence of cardiac pacemakerFollow up:3 weeks with NPI48.0 Paroxysmal atrial mkcuuzrrhuuzK58.0 Localized edemaRecommendations:Take Lasix 2 tabs daily with 2 Potassium tabs until follow up with usR06.02 Shortness of breath
--- OUTSIDE RECORDS SUMMARY | 2018-08-24 12:52 | XMS REPORT | Continuity of Care Document ---
:1930 External Reference #:[id number] Author Name Reji Giordano N.P. Address [address] [place] [address] Care Team Providers Name Role Phone Reji Giordano N.P. 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 Onset: 07/08/2014 Hypothyroidism Reji Giordano, N.P. Onset: 07/08/2014 Cardiac pacemaker procedure Reji Giordano, N.P. Onset: 07/04/2016 Cellulitis of lower leg Reji Giordano, N.P. Onset: 09/26/2016 Peripheral venous insufficiency Reji Giordano, N.P. Onset: 11/22/2016 Gout Reji Giordano, N.P. Onset: 11/22/2016 Anemia Reji Giordano, N.P. Onset: 11/22/2016 Gastric polyp Reji Giordano, N.P. Onset: 07/25/2017 Family History Date Family Member(s) Observation Comments Father due to OR () - 72y Mother due to Old Age () - age 93 Children 6 Social History Type Date Description Comments Sex Unknown Marital Status Significant Other female ETOH Use Currently consumes alcohol daily 4 beers/d Tobacco Use Start: Unknown End: Patient is a former smoker quit 12y Unknown Smoking Status Reviewed: 11/07/17 Patient is a former smoker quit 12y Allergies, Adverse Reactions, Alerts Active Allergies Reaction Severity Comments Date Clindamycin 07/08/2014 Inactive Allergies NKDA 08/28/2012 Medications Active Medications SIG Qnty Indications Ordering Date Provider [place] 3 1 by mouth every 90 [place], 11/07/2017 1000mg Capsules day Mashelle, N.P. Mupirocin apply to 22 [place], 11/14/2016 2% Ointment affected area of Mashelle, N.P. leg twice a day Aspirin Adult Low Dose 1 by mouth every 90ta [place], 07/04/2016 day Mashelle, N.P. 81mg Tablets DR Furosemide 1 by mouth every [place], 07/24/2015 20mg Tablets day Mashelle, N.P. Potassium Chloride ER 1 by mouth every ta [place], 07/24/2015 day with lasix Masxile, N.P. 10Meq Tablets ER Losartan Potassium 1 by mouth every 90ta [place], 07/22/2015 50mg day Mashelle, N.P. Tablets Amiodarone HCL 1 by mouth every ta [place], 07/08/2014 200mg day Mashelle, N.P. Tablets Levothyroxine Sodium take one tablet [place], 07/08/2014 by mouth every Mashelle, N.P. 25mcg Tablets day Omeprazole take one capsule [place], 09/04/2012 20mg Capsules by mouth once Mashelle, N.P. DR daily Allopurinol take one tablet [place], 08/28/2012 100mg Tablets by mouth once Mashelle, N.P. daily Anoro Ellipta inhale one puff 3un [place], by mouth every Mashelle, N.P. 62.5-25mcg/Inh Aerosol day History Medications Ciprofloxacin HCL 1 by mouth twice a 14tabs Reji Giordano, 08/17/2017 - 500mg day x 7 days N.P. 07/09/2018 Tablets Lance Giordano Massofia, 11/08/2016 - 1% Cream N.P. 11/08/2016 Elidel apply to LEFT lower 60gm Thuy Giordanosofia, 11/08/2016 - 1% Cream leg tid as directed N.P. 11/22/2016 Cipro 1 by mouth twice a 10tabs Reji Giordano, 11/08/2016 - 500mg Tablets day x 5 days N.P. 11/14/2016 Ciprofloxacin HCL 1 by mouth twice a 14tabs Reji Giordano, 11/03/2016 - 500mg day x 7 days N.P. 11/08/2016 Tablets Cephalexin 1 By Mouth 4 Times A 15caps Reji Giordano, 11/03/2016 - 250mg Day. N.P. 11/03/2016 Capsules Hydrocodone-Acetamino 1 by mouth every 4- 60tabs Reji Giordano, 2016 - phen 6 h as needed for N.P. 07/25/2017 5-325mg Tablets pain Cefdinir 1 by mouth twice a 20caps Reji Giordano, 07/14/2016 - 300mg Capsules day x 10 days N.P. 08/16/2016 Iron 1 po qd Reji Giordano, 07/04/2016 - 142(45Fe) mg N.P. 07/09/2018 Tablets ER Sucralfate 1 by mouth four 120tabs Reji Giordano, 07/04/2016 - 1gm Tablets times a day N.P. 07/09/2018 Cipro 1 by mouth twice a 20tabs Reji Giordano, 03/26/2015 - 500mg Tablets day x 10 days N.P. 11/03/2016 Ciprofloxacin HCL 1 by mouth twice a 20tabs Reji Giordano, 01/20/2015 - 500mg day x 10 days N.P. 07/22/2015 Tablets Doxycycline Hyclate 1 by mouth twice a 20caps Reji Giordano, 2014 - day x 10 day N.P. 11/25/2015 100mg Capsules Losartan Potassium 1 by mouth every day 30tabs Reji Giordano, 2014 - 25mg N.P. 07/22/2015 Tablets Hydrocodone 1-2 by mouth every 24units PasqualeJules benderjennifer, 11/14/2013 - Bitartrate / 4-6h as needed pain N.P. 07/08/2014 Acetaminophen 5-325mg Indomethacin 1-2 by mouth three 18caps OpheimJules benderjennifer, 11/14/2013 - 25mg times a day with N.P. 07/08/2014 Capsules food for pain and inflammation for 2 days Xarelto 1 qd PasqualeThuysofia, 07/16/2013 - 20mg Tablets N.P. 07/04/2016 Xarelto PasqualeThuysofia, 2012 - 10mg Tablets N.P. 07/16/2013 Atenolol take one tablet by 90tabs Reji Giordano, 09/04/2012 - 50mg Tablets mouth once daily N.P. 07/08/2014 Immunizations CPT Code Status Date Vaccine Lot # [id number] Given 11/07/2017 Influenza Vac, Quadrivalent, Split, 0.5mL Dosage, [id number] Im Use 21126 Given 11/22/2016 Influenza Vac, Quadrivalent, Split, 0.5mL Dosage, [id number] Im Use 67749 Given 12/03/2015 Pneumococcal 23 Immunization Adult Or [id number] Immunosuppressed Patient 89812 Given 11/25/2015 Influenza Vac, Quadrivalent, Split, 0.5mL Dosage, [id number] Im Use 50856 Given 12/28/2014 Influenza Vac, Quadrivalent, Split, 0.5mL Dosage, Im Use 30851 Given 12/01/2014 Prevnar 13 Pneumococal Conjugate Vaccine [id number] Q2038 Given 11/20/2013 Fluzone Trivalent Immunization [id number] 96426 Given 12/03/2012 Zoster (Zostavax) Q2038 Given 11/20/2012 Fluzone Trivalent Immunization [id number] 86905 Given 07/09/2012 Zoster (Zostavax) Vital Signs Date Vital Result Comment 08/21/2018 1:27pm Body Temperature 98.2 F Weight 191.25 lb Heart Rate 76 /min BP Systolic 128 mmHg BP Diastolic 60 mmHg O2 % BldC Oximetry 97 % 07/09/2018 10:01am Body Temperature 97.7 F Weight 181.25 lb Heart Rate 71 /min BP Systolic 114 mmHg BP Diastolic 62 mmHg O2 % BldC Oximetry 97 % 11/07/2017 9:47am Body Temperature 97.9 F Weight 176.00 lb Heart Rate 80 /min BP Systolic 176 mmHg BP Diastolic 80 mmHg Height 67.5 inches 5'7.50" O2 % BldC Oximetry 98 % BMI (Body Mass Index) 27.2 kg/m2 10/24/2017 8:07am Body Temperature 98.1 F Weight 175.00 lb Heart Rate 79 /min BP Systolic 146 mmHg BP Diastolic 62 mmHg O2 % BldC Oximetry 98 % 08/22/2017 11:15am Body Temperature 98.4 F Weight 179.25 lb Heart Rate 67 /min BP Systolic 134 mmHg BP Diastolic 66 mmHg O2 % BldC Oximetry 96 % 07/25/2017 10:01am Body Temperature 99.0 F Weight 172.12 lb Heart Rate 85 /min BP Systolic 136 mmHg BP Diastolic 80 mmHg O2 % BldC Oximetry 99 % 11/22/2016 8:35am Body Temperature 97.7 F Weight 171.38 lb Heart Rate 79 /min BP Systolic 129 mmHg BP Diastolic 63 mmHg O2 % BldC Oximetry 99 % 11/08/2016 2:26pm Body Temperature 97.7 F Weight 169.00 lb Heart Rate 83 /min BP Systolic 147 mmHg BP Diastolic 77 mmHg O2 % BldC Oximetry 98 % 11/03/2016 8:40am Body Temperature 98.4 F Weight 171.00 lb Heart Rate 79 /min BP Systolic 146 mmHg BP Diastolic 76 mmHg O2 % BldC Oximetry 95 % 09/26/2016 11:25am Body Temperature 97.9 F Weight 172.12 lb Heart Rate 66 /min BP Systolic 117 mmHg BP Diastolic 61 mmHg O2 % BldC Oximetry 98 % 08/16/2016 1:46pm Body Temperature 98.1 F Weight 170.00 lb Heart Rate 67 /min BP Systolic 163 mmHg BP Diastolic 71 mmHg O2 % BldC Oximetry 98 % 07/14/2016 3:02pm Body Temperature 98.6 F Weight 168.00 lb Heart Rate 73 /min BP Systolic 140 mmHg BP Diastolic 61 mmHg O2 % BldC Oximetry 98 % 07/04/2016 8:26am Body Temperature 97.5 F Weight 169.38 lb Heart Rate 74 /min BP Systolic 169 mmHg BP Diastolic 74 mmHg Height 68.5 inches 5'8.50" O2 % BldC Oximetry 98 % BMI (Body Mass Index) 25.4 kg/m2 11/25/2015 8:19am Body Temperature 97.9 F Weight 185.38 lb Heart Rate 59 /min BP Systolic 137 mmHg BP Diastolic 62 mmHg O2 % BldC Oximetry 98 % 07/22/2015 10:40am Body Temperature 98.1 F Weight 191.00 lb Heart Rate 67 /min BP Systolic 126 mmHg BP Diastolic 62 mmHg O2 % BldC Oximetry 99 % 03/26/2015 10:28am Body Temperature 97.2 F Weight 190.00 lb Heart Rate 66 /min BP Systolic 156 mmHg BP Diastolic 74 mmHg 01/20/2015 7:48am Body Temperature 97.3 F Weight 189.25 lb Heart Rate 65 /min BP Systolic 122 mmHg BP Diastolic 61 mmHg 12/01/2014 8:05am Body Temperature 98.2 F Weight 189.12 lb Heart Rate 65 /min BP Systolic 165 mmHg BP Diastolic 65 mmHg O2 % BldC Oximetry 94 % 09/01/2014 9:07am Body Temperature 97.9 F Weight 184.50 lb Heart Rate 63 /min BP Systolic 184 mmHg BP Diastolic 78 mmHg 08/14/2014 8:39am Body Temperature 97.7 F Weight 180.25 lb Heart Rate 83 /min BP Systolic 151 mmHg BP Diastolic 57 mmHg 07/08/2014 8:12am Body Temperature 97.7 F Weight 177.00 lb Heart Rate 68 /min BP Systolic 147 mmHg BP Diastolic 70 mmHg O2 % BldC Oximetry 99 % 11/20/2013 10:17am Body Temperature 97.9 F Weight 180.00 lb Heart Rate 49 /min BP Systolic 129 mmHg BP Diastolic 74 mmHg 11/14/2013 1:59pm Body Temperature 98.2 F Weight 184.25 lb Heart Rate 48 /min Irregular. BP Systolic 104 mmHg BP Diastolic 56 mmHg O2 % BldC Oximetry 95 % 07/16/2013 8:16am Body Temperature 97.7 F Weight 187.00 lb Heart Rate 93 /min BP Systolic 183 mmHg BP Diastolic 70 mmHg O2 % BldC Oximetry 96 % 11/20/2012 3:12pm Body Temperature 97.6 F Weight 174.25 lb Heart Rate 64 /min BP Systolic 120 mmHg BP Diastolic 60 mmHg 08/28/2012 10:48am Body Temperature 98.4 F Weight 173.12 lb Heart Rate 74 /min BP Systolic 168 mmHg BP Diastolic 70 mmHg Height 68.25 inches 5'8.25" BMI (Body Mass Index) 26.1 kg/m2 Results Test Date Facility Test Result H/L Range Note Laboratory test 08/21/2018 [facility] TSH <pending> finding Laboratory test 08/21/2018 [facility] NT Pro BNP-RL <pending> finding CBC with Auto 09/15/2017 [facility] WBC 6.5 K/uL 4.1-11.0 1 Diff-fcmg RBC 3.75 M/uL Low 4.60-6.10 Hemoglobin 11.6 gm/dL Low 13.5-18.0 Hematocrit 34.1 % Low 41.0-53.0 MCV 90.9 fL 80.0-97.0 MCH 30.9 pg 27.0-32.0 MCHC 34.0 g/dL 32.0-36.0 RDW 14.7 % High 11.5-14.5 PLT Count 142 K/ul 140-400 MPV 8.0 FL 7.1-10.7 Neutrophil 63.9 % 35.0-75.0 Lymphocyte 12.0 % Low 16.0-52.0 Monocyte 10.7 % High 2.0-10.0 Eosinophil 11.1 % High 0.0-5.0 Basophil 2.3 % 0.0-4.0 Abs Neutrophils 4.1 K/uL 2.1-8.0 Abs Lymphocytes 0.8 K/uL 0.8-5.5 Abs Monocytes 0.7 K/uL 0.1-1.0 Abs Eosinophils 0.7 K/uL High 0.0-0.5 Abs Basophils 0.2 K/uL 0.0-0.3 Laboratory test finding 11/22/2016 [facility] TSH 3.05 uIU/mL 0.35-4.94 Lipid 11/22/2016 [facility] Cholesterol 146 mg/dL 50-199 Triglycerides 76 mg/dL 30-200 HDL 45 mg/dL 29-71 2 Chol/ HDL Ratio 3.2 ratio Low 4.0-6.7 VLDL 15 mg/dL 2-29 LDL (Calc) 86 mg/dL 20-99 3 Comprehensive Met Panel-FCMG 11/22/2016 [facility] Sodium 134 mmol/L Low 135 -146 4 Potassium 3.9 mmol/L 3.5-5.2 Chloride# 101 mmol/L 97-110 5 Carbon Dioxide 25 mmol/L 24-34 Glucose 119 [...] U/L High 8-42 Lisbeth Egfr >60 >60 6 Non Lisbeth Egfr >60 >60 7 Anion Gap 8 mmol/L 7-16 8 Laboratory test finding 11/22/2016 [facility] PSA <0.010 ng/mL 0.000-4.000 9 Laboratory test finding 12/01/2014 [facility] TSH 2.93 uIU/mL 0.35-4.94 10 Laboratory test finding 07/16/2013 [facility] PSA 0.12 ng/mL 0.00-4.00 11 Lipid 07/16/2013 [facility] Cholesterol 189 mg/dL 50-199 Triglycerides 101 mg/dL 30-200 HDL 55 mg/dL 29-71 12 Chol/ HDL Ratio 3.4 ratio Low 4.0-6.7 VLDL 20 mg/dL 2-29 LDL (Calc) 114 mg/dL High 20-99 13 Comprehensive Metabolic (CMP) 07/16/2013 [facility] Sodium 139 mmol/L 134- 142 Potassium 4.6 mmol/L 3.5-5.2 Chloride 101 mmol/L 97-109 Carbon Dioxide 31 mmol/L 24-34 Glucose 84 mg/dL 70-105 BUN 17 mg/dL 6-26 Creatinine 0.9 mg/dL 0.5-1.4 Calcium 9.2 mg/dL 8.5-10.2 Total Protein 6.7 g/dL 6.0-8.0 Albumin 4.3 g/dL 3.6-4.9 Globulin 2.4 g/dL 2.0-3.5 A/G Ratio 1.8 Ratio 1.0-2.2 Total Bilirubin 0.4 mg/dL 0.1-1.3 Alkaline Phosphatase 53 U/L 24-140 Alt 14 U/L 3-42 Ast 20 U/L 8-42 Anion Gap 12 mmol/L 6-14 Lisbeth Egfr >60 >60 14 Non Lisbeth Egfr >60 >60 15 CBC With Auto Diff 07/16/2013 [facility] WBC 5.3 K/uL 4.1-11.0 RBC 4.31 M/uL Low 4.60-6.10 Hemoglobin 13.0 gm/dL Low 13.5-18.0 Hematocrit 38.6 % Low 41.0-53.0 MCV 89.6 fL 80.0-97.0 MCH 30.2 pg 27.0-32.0 MCHC 33.7 g/dL 32.0-36.0 RDW 14.1 % 11.5-14.5 PLT Count 164 K/ul 140-400 Neutrophil 66.5 % 35.0-75.0 Lymphocyte 17.2 % 16.0-52.0 Monocyte 11.6 % High 2.0-10.0 Eosinophil 4.0 % 0.0-5.0 Basophil 0.7 % 0.0-4.0 Abs Neutrophils 3.6 K/uL 2.1-8.0 Abs Lymphocytes 0.9 K/uL 0.8-5.5 Abmon 0.6 K/uL 0.1-1.0 Abs Eosinophils 0.2 K/uL 0.0-0.5 Abs Basophils 0.0 K/uL 0.0-0.3 CBC With Auto Diff 08/28/2012 [facility] WBC 6.1 K/uL 4.1-11.0 16 RBC 4.20 M/uL Low 4.60-6.10 Hemoglobin 12.7 gm/dL Low 13.5-18.0 Hematocrit 39.0 % Low 41.0-53.0 MCV 92.8 fL 80.0-97.0 MCH 30.1 pg 27.0-32.0 MCHC 32.5 g/dL 32.0-36.0 RDW 14.1 % 11.5-14.5 PLT Count 186 K/ul 140-400 Neutrophil 65.5 % 35.0-75.0 Lymphocyte 19.0 % 16.0-52.0 Monocyte 11.0 % High 2.0-10.0 Eosinophil 3.7 % 0.0-5.0 Basophil 0.8 % 0.0-4.0 Abs Neutrophils 4.0 K/uL 2.1-8.0 Abs Lymphocytes 1.2 K/uL 0.8-5.5 Abs Monocytes 0.7 K/uL 0.1-1.0 Abs Eosinophils 0.2 K/uL 0.0-0.5 Abs Basophils 0.1 K/uL 0.0-0.3 Comprehensive Metabolic (CMP) 08/28/2012 [facility] Sodium 138 mmol/L 134- 142 Potassium 4.9 mmol/L 3.5-5.2 Chloride 102 mmol/L 97-109 Carbon Dioxide 29 mmol/L 24-34 Glucose 95 mg/dL 70-105 BUN 18 mg/dL 6-26 Creatinine 0.8 mg/dL 0.5-1.4 Calcium 9.4 mg/dL 8.5-10.2 Total Protein 6.8 g/dL 6.0-8.0 Albumin 4.5 g/dL 3.6-4.9 Globulin 2.3 g/dL 2.0-3.5 A/G Ratio 2.0 Ratio 1.0-2.2 Total Bilirubin 0.7 mg/dL 0.1-1.3 Alkaline Phosphatase 49 U/L 24-140 Alt 12 U/L 3-42 Ast 16 U/L 8-42 Anion Gap 12 mmol/L 6-14 Lisbeth Egfr >60 >60 17 Non Lisbeth Egfr >60 >60 18 Laboratory test finding 08/28/2012 [facility] TSH 2.20 uIU/mL 0.34-5.60 Vitamin B12 686 pg/mL 180-914 Laboratory test 08/28/2012 [facility] B Natriuretic Pep 311 pg/mL High (0- 100) 19 finding 1 FAX# [phone] PHONE# [phone] [place] [address] PLEASE SEND COPY OF RESULTS TO PABLITO CRANE @ [id number] [facility] [facility] This sample is drawn by:SS/LESLEE 2 Per NCEP ATP III Guidelines: Results lower than 40 mg/dL are suggestive of increased risk for coronary artery disease. Results > or=to 60 mg/dL are considered a negative risk factor. 3 Per NCEP ATP III Guidelines: Normal Population <130 Patients with medical conditions: CHD/DM Optimal: <100 Borderline high: 130-159 High: 160-189 Very high: >189 4 Updated reference range on new analyzer 5 Updated reference range on new analyzer 6 Concerning GFR Guidelines for Americans: Normal function or mild renal disease, if clinically at risk: >/=60 mL/min Moderately decreased: 30-59 Severely decreased: 15-29 Renal failure: <15 7 Concerning GFR Guidelines: Normal function or mild [...] drugs that are excreted by the kidneys. 8 Updated reference range on new analyzer 9 Beginning 04/24/06 PSA values assayed at [facility] uses chemiluminescence methodology manufactured by [employer] for use on the DXI analyzer. Values obtained with different assay methods or kits can not be used interchangeably. Serum PSA measurement is not an absolute test for malignancy. The PSA value should be used in conjunction with information available from clinical evaluation and other diagnostic procedures. 10 This sample is drawn by:ROD/JAROD 11 Beginning 04/24/06 PSA values assayed at [facility] uses an EIA methodology manufactured by [employer] for use on the DXI analyzer. Values obtained with different assay methods or kits can not be used interchangeably. Serum PSA measurement is not an absolute test for malignancy. The PSA value should be used in conjunction with information available from clinical evaluation and other diagnostic procedures. 12 Per NCEP ATP III Guidelines: Results lower than 40 mg/dL are suggestive of increased risk for coronary artery disease. Results > or=to 60 mg/dL are considered a negative risk factor. 13 Per NCEP ATP III Guidelines: Normal Population <130 Patients with medical conditions: CHD/DM Optimal: <100 Borderline high: 130-159 High: 160-189 Very high: >189 14 Concerning GFR Guidelines for Americans: Normal function or mild renal disease, if clinically at risk: >/=60 mL/min Moderately decreased: 30-59 Severely decreased: 15-29 Renal failure: <15 15 Concerning GFR Guidelines: Normal function or mild [...] drugs that are excreted by the kidneys. 16 This sample is drawn by:kd/ring making machine operator 17 Concerning GFR Guidelines for Americans: Normal function or mild renal disease, if clinically at risk: >/=60 mL/min Moderately decreased: 30-59 Severely decreased: 15-29 Renal failure: <15 18 Concerning GFR Guidelines: Normal function or mild [...] drugs that are excreted by the kidneys. 19 Unless otherwise specified, testing performed by [facility] [address] [place] [id number] Procedures Date Code Description Status 07/19/2017 33353888 Colonoscopy Completed 07/22/2015 64540 Measure Blood Oxygen Level Single Determination Completed 12/01/2014 84852 Admin Of Inj (Therapeutic Phrophylactic Or Diagnostic Completed Subq Inj 08/14/2014 78262136 Colonoscopy Completed 08/28/2012 66782 Measure Blood Oxygen Level Single Determination Completed Encounters Type Date Location Provider Dx Diagnosis Office Visit 07/09/2018 Reji Lozano, I10 Essential (primary) 10:00a N.P. hypertension E03.9 Hypothyroidism, unspecified D64.9 Anemia, unspecified K21.9 Gastro-esophageal reflux disease without esophagitis Z13.31 Encounter for screening for depression Office Visit 11/07/2017 9:45a Reji Lozano, Z00.01 Encounter for N.P. 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 lower limb Office Visit 08/22/2017 11:30a Reji Lozano L03.116 Cellulitis of LEFT N.P. lower limb Office Visit 07/25/2017 10:00a Reji Lozano, E03.9 Hypothyroidism, N.P. unspecified I10 Essential (primary) hypertension D64.9 Anemia, unspecified K21.9 Gastro-esophageal reflux disease without esophagitis Office Visit 11/22/2016 8:15a Reji Lozano, E03.9 Hypothyroidism, N.P. unspecified I10 Essential (primary) hypertension L03.116 Cellulitis of LEFT lower limb Z23 Encounter for immunization Z13.220 Encounter for screening for lipoid disorders Z12.5 Encounter for screening for malignant neoplasm of prostate Office Visit 11/08/2016 2:15p Reji Lozano, I87.2 Venous insufficiency N.P. (chronic) (peripheral) L30.8 Other specified dermatitis Office Visit 11/03/2016 8:30a Reji Lozano, L03.116 Cellulitis of LEFT N.P. lower limb S80.12xD Contusion of LEFT lower leg, subsequent encounter Office Visit 09/26/2016 11:45a Reji Lozano, Z00.8 Encounter for other N.P. general examination L03.116 Cellulitis of LEFT lower limb Office Visit 08/16/2016 2:00p Reji Lozano, L03.115 Cellulitis of RIGHT N.P. lower limb Office Visit 07/14/2016 2:45p Reji Lozano, J01.00 Acute maxillary N.P. sinusitis, unspecified Office Visit 07/04/2016 8:30a Reji Lozano, E03.9 Hypothyroidism, N.P. unspecified D64.9 Anemia, unspecified I10 Essential (primary) hypertension K21.9 Gastro-esophageal reflux disease without esophagitis Office Visit 11/25/2015 8:30a Reji Lozano, Z23 Encounter for N.P. immunization R10.30 Lower abdominal pain, unspecified Office Visit 07/22/2015 11:00a Reji Lozano, M25.539 Pain in unspecified N.P. wrist M89.8x8 Other specified disorders of bone, other site R06.02 Shortness of breath Office Visit 03/26/2015 10:30a Reji Lozano, L03.119 Cellulitis of N.P. unspecified part of limb I73.9 Peripheral vascular disease, unspecified Office Visit 01/20/2015 8:00a Reji Lozano, L03.119 Cellulitis of N.P. unspecified part of limb Office Visit 12/01/2014 8:00a Reji Lozano, E03.9 Hypothyroidism, N.P. unspecified Z23 Encounter for immunization Office Visit 09/01/2014 9:15a Reji Lozano, 782.9 Skin & Integumentary N.P. Tissue Other Symptoms Office Visit 08/14/2014 8:45a Reji Lozano, V72.83 Examination N.P. Preoperative Other Spec Office Visit 07/08/2014 8:30a Reji Lozano, 401.1 Hypertension Benign N.P. 285.9 Anemia Unspec 427.89 Cardiac Dysrhythmia Other 564.00 Constipation Unspecified Office Visit 11/20/2013 Xavier Giordano, V04.81 Need For Prophylactic 10:15a Reji N.P. Vaccination & Inoculation/Influenza 682.6 Cellulitis & Abscess Leg Except Foot Office Visit 11/14/2013 2:15p Reji Lozano, 682.6 Cellulitis & Abscess N.P. Leg Except Foot 427.89 Cardiac Dysrhythmia Other Office Visit 07/16/2013 8:15a Reji Lozano, N.P. 285.9 Anemia Unspec 401.1 Hypertension Benign V77.91 Screening For Lipoid Disorders V76.44 Screening For Malig Tigre Prostate Office Visit 11/20/2012 3:15p Reji Lozano, 787.20 Dysphagia, N.P. Unspecified V04.81 Need For Prophylactic Vaccination & Inoculation/Influenza Office Visit 08/28/2012 10:45a Reji Lozano, 786.05 Shortness Of Breath N.P. 401.1 Hypertension Benign 780.79 Malaise And Fatigue Other 786.05 Shortness Of Breath Plan of Treatment Future Appointment(s):11/27/2018 10:00 am - Reji Giordano, N.P. at [id number] - Reji Giordano, N.P.E03.9 Hypothyroidism, unspecifiedComments:pt will f/u labsI10 Essential (primary) hypertensionComments: stable with current meds. Cont same pt inst to monitor B/P at home/work 2-3 times per week and report abngoal: <140/90R60.9 Edema, unspecifiedComments:increase lasix to 40mg qd, cont other meds as rx'dpt will contact cardiology today for further eval ASAPhe agrees to report to ER if edema, or SOB increases or CP, fever or any other symps develop
--- NOTE | 2018-08-24 15:38 | ED ---
Lower Extremity - HPI Summary HPI Summary: An 87 y/o male presents to [facility] with a chief complaint of swelling of his legs for weeks. His BNP on 08/21/18 was reportedly 2000. The patient has CP and SOB upon exertion and feels weak. At triage the patient rated his pain as a 0/10 in severity. He has been taking water pills. Per significant other, in the last two weeks, he has gained 10 pounds. - History of Current Complaint Chief Complaint: EDGeneral Stated Complaint: POSS CONGESTED HEART FAILURE PER PT SIGNIFICANT OT Time Seen by Provider: 08/24/18 15:27 Hx Obtained From: Patient, Family/Driver Mechanism Of Injury: Unknown Onset of Pain: Days, Prior to Arrival Onset/Duration: Weeks Severity Initially: Mild Severity Currently: Mild Pain Intensity: 0 Pain Scale Used: 0-10 Numeric Timing: Constant Location: Is Diffuse - bilateral lower extremities Character Of Pain: Unable To Describe Associated Signs And Symptoms: Positive: Swelling, Weakness. Negative: Fever Aggravating Factor(s): Movement Alleviating Factor(s): Nothing - Allergies/Home Medications Allergies/Adverse Reactions: Allergies Allergy/AdvReac Type Severity Reaction Status Date / Time clindamycin Allergy Rash Verified 08/24/18 12:48 Home Medications: Home Medications ANORO 62.5/25 Ellipta DEVICE (NF) 1 puff INH DAILY 08/24/18 [History Confirmed 08/24/18] PMH/Surg Hx/FS Hx/Imm Hx Endocrine/Hematology History: Reports: Hx Thyroid Disease - ON MEDICATION FOR Denies: Hx Diabetes Cardiovascular History: Reports: Hx Hypertension, Hx Pacemaker/ICD - 2016-DR. FRY FOLLOWS-, Other Cardiovascular Problems/Disorders - ATRIAL FIBRILLATION Respiratory History: Denies: Hx Asthma, Hx Chronic Obstructive Pulmonary Disease (COPD) GI History: Reports: Hx Gastroesophageal Reflux Disease - ON MEDICATION FOR, Other GI Disorders - HX OF POLYPS IN STOMACH-REPORTS REMOVED Denies: Hx Ulcer Sensory History: Reports: Hx Cataracts, Hx Contacts or Glasses - GLASSES, Hx Hearing Aid - BILATERAL Opthamlomology History: Reports: Hx Cataracts, Hx Contacts or Glasses - GLASSES - Cancer History Cancer Type, Location and Year: prostate - Surgical History Surgery Procedure, Year, and Place: PROSTATECTOMY (1997, [facility] [place]. 2003 URETHRAL DILATION, CYSTOSCOPY, INTERNAL URETHROTOMY, TUR INCISION OF BLADDER NECK, [facility] [place]. 2007 & 09/2013 ENDOSCOPY WITH FOOD REMOVAL FROM SMALL ESOPHAGUS(X2), [facility] [place]. 2013 CARDIOVERSION, [facility] [place]. 04/2014 APPENDECTOMY, [facility]. 2016-PACEMAKER PLACED. 2015- BILATERAL CATARACTS REMOVED- [facility] [place]. 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1962- Denies: Hx Clostridium Difficile, Hx Human Immunodeficiency Virus (HIV), Hx of Known/Suspected MRSA, Hx Shingles, Hx Tuberculosis, Hx Known/Suspected VRE, Hx Known/Suspected VRSA, History Other Infectious Disease, Traveled Outside the [place] in Last 30 Days - Family History Known Family History: Negative: Cardiac Disease, Hypertension, Diabetes - Social History Alcohol Use: Weekly Alcohol Amount: 2-3 GLASSES PER WEEK Substance Use Type: Reports: None Hx Tobacco Use: No Smoking Status (MU): Former Smoker Type: Pipe Amount Used/How Often: PIPE AND OCCASIONAL CIGAR X 35-40 YEARS Have You Smoked in the Last Year: No Review of Systems Negative: Fever Positive: Chest Pain - upon exertion Positive: Shortness Of Breath - upon exertion Positive: Edema Positive: Weakness All Other Systems Reviewed And Are Negative: Yes Physical Exam - Summary Physical Exam Summary: Appearance: Well appearing, no pain distress Skin: warm, dry, reflects adequate perfusion Head/face: normal Eyes: EOMI, OLGA ENT: normal Neck: supple, non-tender Respiratory: CTA, breath sounds present Cardiovascular: RRR, pulses symmetrical Abdomen: non-tender, soft Musculoskeletal: strength/ROM intact, bilateral pitting edema Neuro: normal, sensory motor intact, A&Ox3 Triage Information Reviewed: Yes Vital Signs On Initial Exam: Initial Vitals Temp Pulse Resp BP Pulse Ox 98.4 F 75 18 112/75 98 08/24/18 12:43 08/24/18 12:43 08/24/18 12:43 08/24/18 12:43 08/24/18 12:43 Vital Signs Reviewed: Yes Diagnostics - Vital Signs Vital Signs Temp Pulse Resp BP Pulse Ox 08/24/18 14:52 97.8 F 74 18 175/82 97 08/24/18 12:43 98.4 F 75 18 112/75 98 - Laboratory Result Diagrams: 08/24/18 15:58 08/24/18 15:58 Lab Statement: Any lab studies that have been ordered have been reviewed, and results considered in the medical decision making process. - Radiology CXR Radiology Interpretation Completed By: Radiologist Summary of Radiographic Findings: NO ACTIVE CARDIOPULMONARY DISEASE IS NOTED. PACEMAKER LEADS IN PLACE. PROMINENT PULMONARY ARTERIES ARE NOTED. ED physician has reviewed this imaging report. - EKG 12:40 Cardiac Rate: Other Rate - Paced rhythm at 75 bpm Summary of EKG Findings: EKG at 12:40 showed Paced rhythm at 75 bpm, no STEMI. Re-Evaluation - Re-Evaluation First Eval Re-Evaluation Time: 17:15 Change: Unchanged Comment: Discussed results and plan for DC Lower Extremity Course/Dx - Course Course Of Treatment: An 87 y/o male presents to [facility] with a chief complaint of swelling of his legs for weeks. His BNP on 08/21/18 was reportedly 2000. The patient has CP and SOB upon exertion and feels weak. The physical exam revealed bilateral pitting edema. CXR impression: NO ACTIVE CARDIOPULMONARY DISEASE IS NOTED. PACEMAKER LEADS IN PLACE. PROMINENT PULMONARY ARTERIES ARE NOTED. Blood work and chemistries obtained. EKG at 12:40 showed Paced rhythm at 75 bpm, no STEMI. The patient will be discharged home and follow up with his PCP. He is agreeable with this plan. - Diagnoses Differential Diagnosis/HQI/PQRI: Positive: Other - chf/dyspnea Provider Diagnoses: History of CHF (congestive heart failure) Discharge - Sign-Out/Discharge Documenting (check all that apply): Patient Departure - DC Patient Received Moderate/Deep Sedation with Procedure: No - Discharge Plan Condition: Stable Disposition: HOME Patient Education Materials: Heart Failure (DC) Referrals: Reji Giordano [employer] [Primary Care Provider] - 3 Days Additional Instructions: Return to the ED if you experience any new or worsening symptoms. - Billing Disposition and Condition Condition: STABLE Disposition: Home - Attestation Statements Document Initiated by Vickiibe: Yes Documenting Scribe: Jas Gilbert Provider For Whom Janice is Documenting (Include Credential): Rick Emanuel MD Scribe Attestation: Jas Casas scribed for Rick Emanuel MD on 08/24/18 at 1823. Scribe Documentation Reviewed: Yes Provider Attestation: The documentation as recorded by the Jas angel accurately reflects the service I personally performed and the decisions made by me, Rick Emanuel MD Status of Scribe Document: Viewed
[2018-08-24 16:12] LABS: ABS Basophils 0.1 10^3/ul (0-0.2); ABS Eosinophils 0.9 10^3/ul (0-0.6); ABS Lymphocytes 0.8 10^3/ul (1.0-4.8); ABS Monocytes 0.5 10^3/ul (0-0.8); ABS Neutrophils 3.3 10^3/ul (1.5-7.7); Eosinophil % 15.8 %; Hematocrit 34 % (42-52); Hemoglobin 11.6 g/dL (14.0-18.0); Lymphocyte % 13.8 %; Mean Corpuscular HGB Conc 34 g/dL (31-36); Mean Corpuscular Hemoglobin 34 pg (27-31); Mean Corpuscular Volume 98 fL (80-94); Mean Platelet Volume 7.1 fL (7.4-10.4); Platelet Count 105 10^3/uL (150-450); Red Blood Count 3.46 10^6 /uL (4.18-5.48); Red Cell Distribution Width 14 % (10-15); White Blood Count 5.6 10^3/uL (3.5-10.8)
[2018-08-24 16:16] LABS: Activated Partial Thrombo Time 38.1 seconds (26.0-38.0); INR 1.15 (0.82-1.09)
[2018-08-24 16:23] LABS: Albumin 4.3 g/dL (3.2-5.2); Albumin/Globulin Ratio 1.3 (1-3); BUN/Creatinine Ratio 23.4 (8-20); Calcium 9.6 mg/dL (8.6-10.3); EGFR African American 59.3 (>60); Globulin 3.4 g/dL (2-4); Potassium 4.5 mmol/L (3.5-5.0); Total Protein 7.7 g/dL (6.4-8.9)
[2018-08-24 16:24] LABS: Troponin I 0.01 ng/mL (<0.04)
[2018-08-24 17:26] VITALS: BP 151/78
== END 2018-08-24 17:27 | disposition home or self-care (01) ==
LOC: ED 12:36
DX: I50.9 Heart failure, unspecified (principal); I11.0 Hypertensive heart disease with heart failure; E07.9 Disorder of thyroid, unspecified; K21.9 Gastro-esophageal reflux disease without esophagitis; Z87.891 Personal history of nicotine dependence
CPT/HCPCS: 36415; 71045; 80053; 83880; 84484; 85025; 85610; 85730; 93005; 99284

== ENCOUNTER 2018-09-07 08:05 | Emergency (ER) | payer MEDICARE ==
[2018-09-07 08:24] VITALS: BP 128/74
--- NOTE | 2018-09-07 08:49 | UC ---
Skin Complaint HPI - HPI Summary HPI Summary: NOTICED RED VESICULAR RASH ON PATIENT'S BACK LAST NIGHT. STATES SINCE THEN IT HAS SPREAD AROUND TO THE FRONT. THINKS IT'S SHINGLES. NO FEVER. NOT ITCHY. - History of Current Complaint Chief Complaint: UCSkin Time Seen by Provider: 09/07/18 08:23 Stated Complaint: SKIN CONCERN Hx Obtained From: Patient, Family/Flat Lock Machine Operator - Onset/Duration: Gradual Onset, Lasting Hours, Still Present Timing: Constant Onset Severity: Moderate Current Severity: Moderate Pain Intensity: 2 Pain Scale Used: 0-10 Numeric Character: Pain, Redness Aggravating Factor(s): Touch Alleviating Factor(s): Nothing Associated Signs & Symptoms: Positive: Rash, Tenderness - Allergy/Home Medications Allergies/Adverse Reactions: Allergies Allergy/AdvReac Type Severity Reaction Status Date / Time clindamycin Allergy Rash Verified 09/07/18 08:24 PMH/Surg Hx/FS Hx/Imm Hx Endocrine History: Hypothyroidism Cardiovascular History: Hypertension Cancer History: Prostate Cancer - Surgical History Surgical History: Yes Surgery Procedure, Year, and Place: PROSTATECTOMY (1997, [facility] [place]. 2003 URETHRAL DILATION, CYSTOSCOPY, INTERNAL URETHROTOMY, TUR INCISION OF BLADDER NECK, [facility] [place]. 2007 & 09/2013 ENDOSCOPY WITH FOOD REMOVAL FROM SMALL ESOPHAGUS(X2), [facility] [place]. 2013 CARDIOVERSION, [facility] [place]. 04/2014 APPENDECTOMY, [facility]. 2015-PACEMAKER PLACED. 2014- BILATERAL CATARACTS REMOVED- [facility] [place]. 2017-hernia repair - Family History Known Family History: Negative: Cardiac Disease, Hypertension, Diabetes - Social History Alcohol Use: Weekly Alcohol Amount: 2-3 GLASSES PER WEEK Substance Use Type: None Smoking Status (MU): Former Smoker Type: Pipe Amount Used/How Often: PIPE AND OCCASIONAL CIGAR X 35-40 YEARS Have You Smoked in the Last Year: No When Did the Patient Quit Smoking/Using Tobacco: 30 years ago Household Exposure Type: Pipe - Immunization History Vaccination Up to Date: Yes Review of Systems All Other Systems Reviewed And Are Negative: Yes Constitutional: Positive: Negative Skin: Positive: Rash Respiratory: Positive: Negative Cardiovascular: Positive: Negative Gastrointestinal: Positive: Negative Physical Exam Triage Information Reviewed: Yes Appearance: Well-Appearing, No Pain Distress, Well-Nourished Vital Signs: Initial Vital Signs Temp 97.7 F 09/07/18 08:20 Pulse 70 09/07/18 08:20 Resp 16 09/07/18 08:20 BP 128/74 09/07/18 08:20 Pulse Ox 99 09/07/18 08:20 Vital Signs Reviewed: Yes Eyes: Positive: Conjunctiva Clear ENT: Positive: Hearing grossly normal Neck: Positive: Supple Respiratory: Positive: No respiratory distress, No accessory muscle use Cardiovascular: Positive: Pulses Normal Abdomen Description: Positive: Soft Musculoskeletal: Positive: No Edema Neurological: Positive: Alert Psychological: Positive: Age Appropriate Behavior Skin: Positive: Rashes - ERYTHEMATOUS, RASH WITH GROUPS OF VESICLES IN T8-T9 DISTRIBUTION ON THE LEFT Course/Dx - Diagnoses Provider Diagnosis: Shingles Discharge - Sign-Out/Discharge Documenting (check all that apply): Patient Departure All imaging exams completed and their final reports reviewed: No Studies - Discharge Plan Condition: Stable Disposition: HOME Prescriptions: Valacyclovir HCl [Valacyclovir] 1,000 mg PO TID #21 tablet Patient Education Materials: Shingles (ED) Referrals: Reji Giordano [employer] [Primary Care Provider] - If Needed Additional Instructions: YOUR RASH IS CONSISTENT IN APPEARANCE WITH SHINGLES. TAKE THE MEDICINE 3 TIMES DAILY FOR THE FULL 7 DAYS TO HELP EXPEDITE RESOLUTION. THE CONDITION IS CONTAGIOUS ONLY TO THOSE WHO HAVE NOT BEEN VACCINATED OR HAVE NOT HAD CHICKENPOX OR SHINGLES IN THE PAST. KEEP THE RASH COVERED AND PRACTICE GOOD HAND HYGIENE. OTC MEDICATIONS NEEDED FOR DISCOMFORT. - Billing Disposition and Condition Condition: STABLE Disposition: Home
== END 2018-09-07 08:48 | disposition home or self-care (01) ==
LOC: UCCORT 08:05
DX: B02.9 Zoster without complications (principal); I10 Essential (primary) hypertension; Z85.46 Personal history of malignant neoplasm of prostate; Z88.1 Allergy status to other antibiotic agents; Z87.891 Personal history of nicotine dependence
CPT/HCPCS: 99212; G0463

== ENCOUNTER 2018-09-28 15:47 | Emergency (ER) | payer MEDICARE ==
--- OUTSIDE RECORDS SUMMARY | 2018-09-28 15:52 | XMS REPORT | Continuity of Care Document ---
:1930 External Reference #:[id number] Author Name Sol Salcido Care Team Providers Name Role Phone Reji Giordano NP Primary Care Physician Unavailable Payers Date Identification Numbers Payment Provider Subscriber Effective: 1994 Policy Number: [id number] Medicare Yvette Bonilla PayID: [id number] [address] [place] [address] Effective: 2012 Policy Number: [facility] Yvette Bonilla [id number] PayID: [id number] [address] [place] [address] Problems Active Problems Provider Date Dyspnea Cecilio [...] Drug Use Tobacco Use Start: Unknown quit 1430-1125 Smoking Status Reviewed: 09/18/18 quit 5875-2055 Exercise Type/Frequency Exercises regularly Allergies, Adverse Reactions, Alerts Active Allergies Reaction Severity Comments Date Clindamycin Hives Moderate 07/25/2014 Inactive Allergies NKDA 08/15/2013 Medications Active Medications SIG Qnty Indications Ordering Date Provider Losartan Potassium 2 by mouth every 90tabs Cecilio Cha 07/03/2015 50mg day Iker Angel Tablets Omeprazole 1 by mouth daily 30tabs Unknown 20mg Tablets in the morning in DR empty stomach Allopurinol 1 by mouth every 90tabs Unknown 100mg day Tablets Amiodarone HCL 1/2 by mouth every 90tabs Cecilio Cha 200mg day Iker Angel Tablets Levothyroxine Sodium 1 by mouth every Unknown day 25mcg Tablets Furosemide 2 tabs by po daily Unknown 20mg Tablets Potassium Chloride ER 2 tab by mouth Unknown every day 10Meq Capsules ER Aspirin Enteric 1 by mouth every Unknown Coated Adult Low day Strength 81mg Tablets DR [place] 3 1 by mouth daily Unknown 1000mg [...] twice a day for Unknown 10 days Iron (Ferrous Sulfate) 1 daily Unknown - 142(45Fe) mg 09/17/2018 Tablets ER Sucralfate 1 by mouth once Unknown - [...] Injection Vital Signs Date Vital Result Comment 09/18/2018 3:09pm Height 67 inches 5'7" Weight 184.00 lb with shoes Heart Rate 70 /min BP Systolic Sitting 134 [address] reg cuff BP Diastolic Sitting 64 mmHg [address] reg cuff BP Systolic Standing 130 mmHg [address] reg cuff BP Diastolic Standing 68 mmHg [address] cuff Respiratory Rate 14 /min BMI (Body Mass Index) 28.8 kg/m2 Ejection Fraction 60-65% echo. 07/31/15 08/22/2018 8:21am Weight 194.00 lb with shoes [...] Result H/L Range Note Laboratory test 11/28/2017 [facility] Surgical SEE RESULT [address] [place] [address] [phone] CBC Auto Diff 07/21/2016 [facility] White Blood 8.0 10^3/uL N 3.5-10.[address] [place] [address] [phone] Red Blood Count 3.79 10^6/uL Low 4.0-5.4 [...] Cells % 0 N Laboratory test 07/21/2016 [facility] Troponin-I 0.01 ng/mL N <0.[address] (TnI) [place] [address] [phone] Comp Metabolic 07/21/2016 [facility] Sodium 131 mmol/L Low 133 -[address] [place] [address] [phone] Potassium 4.0 mmol/L N 3.5-5.0 Chloride 99 [...] Egfr 94.4 N >60 3 Inr/Protime 07/21/2016 [facility] Inr 1.12 High 0.89-1.[address] [place], [place] [address] [phone] Laboratory test 07/21/2016 [facility] Partial 33.6 N 26.0- 36.[address] [place] [address] Time PTT [phone] B-Type Natriuretic Peptide BNP 292 pg/mL High 4 Lactic Acid 0.8 mmol/L N 0.5-2.0 5 C Reactive Protein 6.05 mg/L High < 5.00 6 Urinalysis Profile 07/21/2016 [facility] Urine Color Yellow N [address] [place] [address] [phone] Urine Appearance Clear N Urine Specific [place] 1.013 N 1.010-1.030 Urine pH 5.0 N [...] Bacteria Absent N Absent Laboratory test 07/21/2016 [facility] Blood Culture SEE RESULT [address] [place] [address] [phone] Laboratory test 10/29/2015 [facility] TSH (Thyroid 2.63 mcIU/mL N 0.34-[address] Stim Horm) .[address] [place] [address] [phone] Laboratory test 10/29/2015 [facility] Ach Receptor 0.00 nmol/L N <=0.[address] [place] [address] [phone] Creatine Kinase(CK) 47 U/L N 10-223 9 CBC Auto Diff 10/13/2015 [facility] White Blood 4.6 10^3/uL N 3.5-10.[address] [place] [address] [phone] Red Blood Count 4.10 10^6/uL N 4.0-5.4 [...] Blood Cells % 0 N Laboratory test 10/13/2015 [facility] B-Type 440 pg/mL High [address] [place] [address] Peptide BNP [phone] Basic Metabolic 10/13/2015 [facility] Sodium 125 mmol/L Low 133-[address] [place] [address] [phone] Potassium 4.5 mmol/L N 3.5-5.0 Chloride 93 mmol/L Low 101-111 Co2 Carbon Dioxide 26 mmol/L N 22-32 Anion Gap 6 mmol/L N 2-11 Glucose 101 mg/dL High 70-100 Blood Urea Nitrogen 14 mg/dL N 6-24 Creatinine 1.06 mg/dL N 0.67-1.17 BUN/Creatinine Ratio 13.2 N 8-20 Calcium 8.7 mg/dL N 8.6-10.3 Egfr Non- 66.2 N >60 Egfr 85.2 N >60 11 Laboratory test 10/08/2015 [facility] TSH (Thyroid 2.77 mcIU/mL N 0.34-5.[address] Stim Horm) [place] [address] [phone] Basic Metabolic 09/20/2012 [facility] Sodium 137 mmol/L 133- [address] [place] [address] [phone] Potassium 4.8 mmol/L 3.5-5.0 Chloride 103 mmol/L 101-111 Co2 Carbon Dioxide 30.0 mmol/L 22-32 Anion Gap 4.0 mmol/L 2-11 Glucose 102 mg/dL High 70-100 Blood Urea Nitrogen 17 mg/dL 6-24 Creatinine 0.90 mg/dL 0.50-1.40 BUN/Creatinine Ratio 18.9 8-20 Calcium 9.3 mg/dL 8.1-9.9 Egfr Non- 80.8 >60 Egfr 103.9 >60 12 CBC No Diff 09/20/2012 [facility] White Blood 8.0 10^3/uL 4.8 -10.[address] [place] [address] [phone] Red Blood Count 4.08 10^6/uL 4.0-5.4 Hemoglobin [...] [address]: Adrián Castellon MD Acct: [id number] Unit: [id number] AGE: 87 Location: OR Re11/28/17 SEX: M Status: [place] [facility] [place]C: [id number] TERRANCE: 11/28/17- SUBM DR: Adrián Castellon MD REQ: [id number] RECD: 11/28/17 STATUS: SOUT _ ORDERED: LEVEL 2 FINAL DIAGNOSIS Right inguinal region, herniorrhaphy: -- Hernia sac. PRE-OPERATIVE DIAGNOSIS Right inguinal hernia GROSS DESCRIPTION The specimen is received in formalin labeled, Right Inguinal Hernia Sac, and consists of a 4.0 by up to 2.5 x 0.6 cm butt-pink wrinkled saccular portion of fibromembranous tissue with scant adherent yellow fat. Director Fraud sections, one cassette. Signed by and Reported on: Giancarlo Layton MD 05/14 1559 END OF REPORT DEPARTMENT OF PATHOLOGY, [address] [place] [address] Giancarlo Layton M.D. Director [facility] # [id number] 2 99th percentile=0.04 ng/mL Troponin results at [facility] and [facility] are not interchangeable. 3 Because ethnic data [...] pg/mL: likely moderate to severe CHF 5 [facility] Severe Sepsis and Septic Shock Management Bundle Measure requires all lactic acids initially measuring >2.0 mmol/L be repeated. 6 Acute inflammation: >10.00 7 SEE RESULT BELOW Name: YVETTE BONILLA : [address]: Olvin Jacobs MD Acct: [id number] Unit: [id number] AGE: 85 Location: ED Re07/21/16 SEX: M Status: DEP ER SPEC: [id number] TERRANCE: 07/21/[address] [facility] [address]: Olvin Jacobs MD REQ: [id number] RECD: 07/21/16 STATUS: BRENT ÁLVAREZ DR: Cecilio Giordano FURS SALESPERSON _ SOURCE: BLOOD,VENO SPDES: ORDERED: Blood Cult Procedure Result Reported Site Aerobic Culture Bottle Final 07/26/16- 941 ML No Growth Day 5 Anaerobic Culture Bottle Final 07/26/16- 941 ML No Growth Day 5 * ML - MAIN LAB (PSC1) . END OF REPORT * ML=Testing performed at Main Lab DEPARTMENT OF PATHOLOGY, [address] [place] [address] Giancarlo Layton M.D. Director [facility] # [id number] ADDITIONAL INFORMATION This test was developed and its performance characteristics determined by [facility] in a manner consistent with CLIA requirements. This test has not been cleared or approved by the U.S. Food and Drug Administration. PDF Report available at: [email or web address] Test Performed by: [place] [address] Handle Sander Operator: Arnulfo Gallegos II, M.D., Ph.D. 9 soon 10 >100 to <200 pg/mL: likely compensated congestive heart failure (CHF) 200 to 400 pg/mL: likely moderate CHF >400 pg/mL: likely moderate to severe CHF 11 Because ethnic data is not always readily [...] 15-29 5 Kidney failure <15 (or dialysis) 12 Because ethnic data is not always [...] dialysis) Procedures Date Code Description Status 08/22/2018 26289 EKG Tracing & Interpretation Completed 12/06/2017 05467 EKG Tracing & Interpretation Completed 11/28/2017 94661 Repair Hernia Inguinal > 5Yrs, Reducible Completed 11/28/2017 01727 Repair Hernia Inguinal > 5Yrs, Reducible Completed 12/02/2016 59573 Pace Maker Eval W/Iterative Adjment Dual Lead Completed 07/06/2016 58878 EKG Tracing & Interpretation Completed 11/27/2015 02307 EKG Tracing & Interpretation Completed 10/20/2015 13248 Spirometry Incl Graphic Record Completed 10/20/2015 79828 Plethysmography Determination Lung Volumes & Per Airway Completed Resist 10/20/2015 27106 Diffusing Capacity Completed 10/13/2015 24708 EKG Tracing & Interpretation Completed 07/31/2015 43813 ECHO Transthoracic, Real-Time 2D With Doppler And Color Completed Flow 07/03/2015 43382 EKG Tracing & Interpretation Completed 04/17/2015 65843 EKG Tracing & Interpretation Completed 07/25/2014 54656 EKG Tracing & Interpretation Completed 12/11/2013 01240 EKG Tracing & Interpretation Completed 11/26/2013 77860 Cardioversion Completed 11/26/2013 07054 EKG Tracing & Interpretation Completed 11/26/2013 60790 EKG Tracing & Interpretation Completed 2013 67567 EKG Tracing & Interpretation Completed 09/23/2013 73462 EKG, Interpretation Only Completed 09/23/2013 32296 Cardioversion Completed 09/18/2013 93689 EKG Tracing & Interpretation Completed 08/05/2013 37932 ECHO Transthoracic, Real-Time 2D With Doppler And Color Completed Flow 07/31/2013 55978 Holter Monitoring 24 HR New Completed 07/24/2013 29460 EKG Tracing & Interpretation Completed 11/05/2012 53868 EKG Tracing & Interpretation Completed 10/22/2012 45618 EKG, Interpretation Only Completed 10/22/2012 27314 Cardioversion Completed 09/24/2012 21974 Holter Monitoring 24 HR New Completed 09/14/2012 09493 ECHO Transthoracic, Real-Time 2D With Doppler And Color Completed Flow 09/12/2012 31747 Stress Test Completed 09/12/2012 55987 Myocardial Perfusion Imaging Tomographic (Spect) Multiple Completed Studies 09/07/2012 48671 ECHO Stress Test Incl Perf Contiuous ekg Monitoring W/Phys Completed Superv Encounters Type Date Location Provider Dx Diagnosis Office Visit 08/22/2018 [facility] Cecilio Angel Z95.0 Presence of 8:30a Of Vika Dong cardiac pacemaker I48.0 Paroxysmal atrial fibrillation R60.0 Localized edema R06.02 Shortness of breath Office Visit 12/06/2017 3:30p [facility] Cecilio Cha Z95.0 Presence of Of Vika Angel M.D. cardiac pacemaker I48.0 Paroxysmal atrial fibrillation I50.33 Acute on chronic diastolic (congestive) heart failure Office Visit 11/09/2017 10:30a Surgical Adrián Castellon, K40.90 [facility] RODRIGUEZ, FACS hernia, w/o obst or gangr, not spcf as recur Office Visit 12/07/2016 11:00a Kaz Cha R06.02 Shortness of Of Vika Angel M.D. breath I48.0 Paroxysmal atrial fibrillation Z95.0 Presence of cardiac pacemaker Office Visit 07/06/2016 10:30a Kaz Cha I48.0 Paroxysmal atrial Of Vika Angel M.D. fibrillation R06.02 Shortness of breath Z95.0 Presence of cardiac pacemaker Office Visit 11/27/2015 9:15a Kaz Cha I48.0 Paroxysmal atrial Of Vika Angel M.D. fibrillation R06.02 Shortness of breath Office Visit 10/29/2015 8:00a Kaz Cha R06.02 Shortness of Of Vika Angel M.D. breath I48.0 Paroxysmal atrial fibrillation Office Visit 10/13/2015 1:45p [facility] Cecilio D. R06.02 Shortness of Of Costing Analyst AT [facility] Iker Angel breath I48.0 Paroxysmal atrial fibrillation I50.33 Acute on chronic diastolic (congestive) heart failure Office Visit 08/07/2015 11:45a [facility] Cecilio D. I48.0 Paroxysmal atrial Of Costing Analyst Jeremiah AngelDIvan fibrillation R06.02 Shortness of breath R60.0 Localized edema Office Visit 07/03/2015 1:00p [facility] Cecilio D. I48.0 Paroxysmal atrial Of Costing Analyst Stanley M.DIvan fibrillation R06.02 Shortness of breath I50.33 Acute on chronic diastolic (congestive) heart failure R60.0 Localized edema Office Visit 11/27/2014 8:30a [facility] Cecilio Cha I48.0 Paroxysmal atrial Of Vika Angel M.D. fibrillation Office Visit 07/25/2014 9:45a [facility] Cecilio D. 427.31 Atrial Of Vika Angel M.D. Fibrillation 786.05 Shortness Of Breath Office Visit 12/11/2013 10:00a [facility] Cecilio Cha 427.31 Atrial Of Vika Angel M.D. Fibrillation 794.31 Electrocardiogram (ECG) (EKG) Abnormal Office Visit 2013 9:45a [facility] Cecilio Cha 427.31 Atrial Of Vika Angel M.D. Fibrillation Office Visit 09/18/2013 12:45p [facility] Cecilio Cha 427.31 Atrial Of Vika Angel M.D. Fibrillation 786.05 Shortness Of Breath Office Visit 08/15/2013 10:00a [facility] Cecilio Cha 427.31 Atrial Of Vika Angel MLindsey Fibrillation 786.05 Shortness Of Breath Office Visit 07/24/2013 8:00a [facility] Cecilio D. 427.31 Atrial Of Vika Angel M.D. Fibrillation 786.05 Shortness Of Breath Office Visit 11/05/2012 3:30p [facility] Cecilio Cha 427.31 Atrial Of Costing Analyst AT [facility] Iker Angel Fibrillation Office Visit 09/20/2012 2:00p [facility] Cecilio D. 427.31 Atrial Of Vika Angel M.D. Fibrillation Plan of Treatment Future Appointment(s):12/05/2018 1:30 pm - Cecilio Angel M.D. at [facility]09/18/2018 - Pamela Garay N.P.Z95.0 Presence of cardiac bgnomtxkeW87.0 Paroxysmal atrial hkflgjpxfdvjW08.0 Localized edemaFollow up:OV 11/2018 Arsenio as scheduled.Recommendations:Continue Furosemide 2 (20mg) tabs daily
--- OUTSIDE RECORDS SUMMARY | 2018-09-28 15:53 | XMS REPORT | Continuity of Care Document ---
:1930 External Reference #:[id number] Author Name Collinnapoleon Maritza Care Team Providers Name Role Phone Reji Giordano NP Primary Care Physician Unavailable Payers Date Identification Numbers Payment Provider Subscriber Effective: 1994 Policy Number: [id number] Medicare Yvette Bonilla PayID: [id number] [address] [place] [address] Effective: 2012 Policy Number: [facility] Yvette Bonilla [id number] PayID: [id number] [address] [place] [address] Problems Active Problems Provider Date Dyspnea Cecilio [...] Drug Use Tobacco Use Start: Unknown quit [id number] Smoking Status Reviewed: 08/22/18 quit 5269-0807 Exercise Type/Frequency Exercises regularly Allergies, Adverse Reactions, [...] 200mg day ( decreased Iker Angel Tablets [facility] 03/2018) Levothyroxine Sodium 1 by mouth every Unknown day 25mcg Tablets Furosemide 2 tablet po daily Unknown 20mg Tablets ( increase Reji Giordano 08/22/18) Potassium Chloride ER 2 tab by mouth Unknown every day 10Meq Capsules ER (increase 07/2618 Reji Giordano [employer] INS[employer]) Aspirin Enteric 1 by mouth every Unknown Coated Adult Low day Strength 81mg Tablets DR Iron (Ferrous 1 daily Unknown Sulfate) 142(45Fe) mg Tablets ER [place] 3 1 by mouth daily Unknown 1000mg [...] Losartan Potassium 1 by mouth 90tabs Cecilio Cah - 25mg Tablets every day Iker Angel [...] Result H/L Range Note Laboratory test 11/28/2017 [facility] Surgical SEE RESULT [address] [place] [address] [phone] CBC Auto Diff 07/21/2016 [facility] White Blood 8.0 10^3/uL N 3.5-10.[address] [place] [address] [phone] Red Blood Count 3.79 10^6/uL Low 4.0-5.4 [...] Cells % 0 N Laboratory test 07/21/2016 [facility] Troponin-I 0.01 ng/mL N <0.04 [address] (TnI) [place] [address] [phone] Comp Metabolic 07/21/2016 [facility] Sodium 131 mmol/L Low 133 -[address] [place] [address] [phone] Potassium 4.0 mmol/L N 3.5-5.0 Chloride 99 [...] Egfr 94.4 N >60 3 Inr/Protime 07/21/2016 [facility] Inr 1.12 High 0.89-1.[address] [place] [address] [phone] Laboratory test 07/21/2016 [facility] Partial 33.6 N 26.0- 36.[address] [place] [address] Time PTT [phone] B-Type Natriuretic Peptide BNP 292 pg/mL High 4 Lactic Acid 0.8 mmol/L N 0.5-2.0 5 C Reactive Protein 6.05 mg/L High < 5.00 6 Urinalysis Profile 07/21/2016 [facility] Urine Color Yellow N [address] [place] [address] [phone] Urine Appearance Clear N Urine Specific [place] 1.013 N 1.010-1.030 Urine pH 5.0 N [...] Bacteria Absent N Absent Laboratory test 07/21/2016 [facility] Blood Culture SEE RESULT [address] [place] [address] [phone] Laboratory test 10/29/2015 [facility] TSH (Thyroid 2.63 mcIU/mL N 0.34-[address] Stim Horm) .60 [place] [address] [phone] Laboratory test 10/29/2015 [facility] Ach Receptor 0.00 nmol/L N <=0.02 [address] [place] [address] [phone] Creatine Kinase(CK) 47 U/L N 10-223 9 CBC Auto Diff 10/13/2015 [facility] White Blood 4.6 10^3/uL N 3.5-10.[address] [place] [address] [phone] Red Blood Count 4.10 10^6/uL N 4.0-5.4 [...] Cells % 0 N Basic Metabolic 10/13/2015 [facility] Sodium 125 mmol/L Low 133-[address] [place] [address] [phone] Potassium 4.5 mmol/L N 3.5-5.0 Chloride 93 mmol/L Low 101-111 Co2 Carbon Dioxide 26 mmol/L N 22-32 Anion Gap 6 mmol/L N 2-11 Glucose 101 mg/dL High 70-100 Blood Urea Nitrogen 14 mg/dL N 6-24 Creatinine 1.06 mg/dL N 0.67-1.17 BUN/Creatinine Ratio 13.2 N 8-20 Calcium 8.7 mg/dL N 8.6-10.3 Egfr Non- 66.2 N >60 Egfr 85.2 N >60 10 Laboratory test 10/13/2015 [facility] B-Type 440 pg/mL High [address] [place] [address] Peptide BNP [phone] Laboratory test 10/08/2015 [facility] TSH (Thyroid 2.77 N 0.34 - finding [address] Stim Horm) mcIU/mL 5.60 [place] [address] [phone] Basic Metabolic 09/20/2012 [facility] Sodium 137 mmol/L 133- [address] [place] [address] [phone] Potassium 4.8 mmol/L 3.5-5.0 Chloride 103 mmol/L 101-111 Co2 Carbon Dioxide 30.0 mmol/L 22-32 Anion Gap 4.0 mmol/L 2-11 Glucose 102 mg/dL High 70-100 Blood Urea Nitrogen 17 mg/dL 6-24 Creatinine 0.90 mg/dL 0.50-1.40 BUN/Creatinine Ratio 18.9 8-20 Calcium 9.3 mg/dL 8.1-9.9 Egfr Non- 80.8 >60 Egfr 103.9 >60 12 CBC No Diff 09/20/2012 [facility] White Blood 8.0 10^3/uL 4.8 -10.[address] [place] [address] [phone] Red Blood Count 4.08 10^6/uL 4.0-5.4 Hemoglobin [...] [address]: Adrián Castellon MD Acct: [id number] Unit: [id number] AGE: 87 Location: OR Re11/28/17 SEX: M Status: REG SDC SPEC: [id number] TERRANCE: 11/28/17- [facility] DR: Adrián Castellon MD REQ: [id number] RECD: 11/28/17 STATUS: SOUT _ ORDERED: LEVEL 2 FINAL DIAGNOSIS Right inguinal region, herniorrhaphy: -- Hernia sac. PRE-OPERATIVE DIAGNOSIS Right inguinal hernia GROSS DESCRIPTION The specimen is received in formalin labeled, Right Inguinal Hernia Sac, and consists of a 4.0 by up to 2.5 x 0.6 cm butt-pink wrinkled saccular portion of fibromembranous tissue with scant adherent yellow fat. Roof Bolter sections, one cassette. Signed by and Reported on: Giancarlo Layton MD 05/14 1559 END OF REPORT DEPARTMENT OF PATHOLOGY, [address] [place] [address] Giancarlo Layton M.D. Director [facility] # [id number] 2 99th percentile=0.04 ng/mL Troponin results at [facility] and [facility] are not interchangeable. 3 Because ethnic [...] pg/mL: likely moderate to severe CHF 5 [facility] Severe Sepsis and Septic Shock Management Bundle Measure requires all lactic acids initially measuring >2.0 mmol/L be repeated. 6 Acute inflammation: >10.00 7 SEE RESULT BELOW Name: YVETTE BONILLA : [address]: Olvin Jacobs MD Acct: [id number] Unit: [id number] AGE: 85 Location: ED Re07/21/16 SEX: M Status: DEP ER SPEC: [id number] TERRANCE: 07/21/[address]: Olvin Jacobs MD REQ: [id number] RECD: 07/21/16 STATUS: BRENT ÁLVAREZ DR: Cecilio Giordano [employer]SEM[employer]ER [employer] _ SOURCE: BLOOD,VENO SPDESC: ORDERED: Blood Cult Procedure Result Reported Site Aerobic Culture Bottle Final 07/26/16941 ML No Growth Day 5 Anaerobic Culture Bottle Final 07/26/16941 ML No Growth Day 5 * ML - MAIN LAB ([facility]) . END OF REPORT * ML=Testing performed at Main Lab DEPARTMENT OF PATHOLOGY, [address] [place] [address] Giancarlo Layton M.D. Director [facility] # [id number] ADDITIONAL INFORMATION This test was developed and its performance characteristics determined by [facility] in a manner consistent with CLIA requirements. This test has not been cleared or approved by the U.S. Food and Drug Administration. PDF Report available at: [email or web address] Test Performed by: [place] [address] Electroless Plater: Arnulfo Gallegos II, M.D., Ph.D. 9 soon [...] dialysis) Procedures Date Code Description Status 08/22/2018 05880 EKG Tracing & Interpretation Completed 12/06/2017 33421 EKG Tracing & Interpretation Completed 11/28/2017 10606 Repair Hernia Inguinal > 5Yrs, Reducible Completed 11/28/2017 30386 Repair Hernia Inguinal > 5Yrs, Reducible Completed 12/02/2016 91328 Pace Maker Eval W/Iterative Adjment Dual Lead Completed 07/06/2016 68712 EKG Tracing & Interpretation Completed 11/27/2015 29014 EKG Tracing & Interpretation Completed 10/20/2015 13068 Spirometry Incl Graphic Record Completed 10/20/2015 36535 Plethysmography Determination Lung Volumes & Per Airway Completed Resist 10/20/2015 02295 Diffusing Capacity Completed 10/13/2015 02790 EKG Tracing & Interpretation Completed 07/31/2015 74757 ECHO Transthoracic, Real-Time 2D With Doppler And Color Completed Flow 07/03/2015 79857 EKG Tracing & Interpretation Completed 04/17/2015 53263 EKG Tracing & Interpretation Completed 07/25/2014 98985 EKG Tracing & Interpretation Completed 12/11/2013 98423 EKG Tracing & Interpretation Completed 11/26/2013 32273 Cardioversion Completed 11/26/2013 74841 EKG Tracing & Interpretation Completed 11/26/2013 70669 EKG Tracing & Interpretation Completed 2013 24115 EKG Tracing & Interpretation Completed 09/23/2013 51029 EKG, Interpretation Only Completed 09/23/2013 04491 Cardioversion Completed 09/18/2013 47802 EKG Tracing & Interpretation Completed 08/05/2013 61330 ECHO Transthoracic, Real-Time 2D With Doppler And Color Completed Flow 07/31/2013 68593 Holter Monitoring 24 HR New Completed 07/24/2013 01861 EKG Tracing & Interpretation Completed 11/05/2012 56470 EKG Tracing & Interpretation Completed 10/22/2012 73875 EKG, Interpretation Only Completed 10/22/2012 07370 Cardioversion Completed 09/24/2012 60142 Holter Monitoring 24 HR New Completed 09/14/2012 02497 ECHO Transthoracic, Real-Time 2D With Doppler And Color Completed Flow 09/12/2012 62600 Stress Test Completed 09/12/2012 50438 Myocardial Perfusion Imaging Tomographic (Spect) Multiple Completed Studies 09/07/2012 74822 ECHO Stress Test Incl Perf Contiuous ekg Monitoring W/Phys Completed Superv Encounters Type Date Location Provider Dx Diagnosis Office Visit 08/22/2018 [facility] Cecilio Angel Z95.0 Presence 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 cardiac pacemaker I48.0 Paroxysmal atrial fibrillation I50.33 Acute on chronic diastolic (congestive) heart failure Office Visit 11/09/2017 10:30a Surgical Adrián Castellon, K40.90 [facility]RIG[facility], FACS hernia, w/o obst or gangr, not spcf as recur Office Visit 12/07/2016 11:00a [facility] Cecilio Cha R06.02 Shortness of Of Vika Angel M.D. breath I48.0 Paroxysmal atrial fibrillation Z95.0 Presence of cardiac pacemaker Office Visit 07/06/2016 10:30a [facility] Cecilio Cha I48.0 Paroxysmal atrial Of Vika Angel M.D. fibrillation R06.02 Shortness of breath Z95.0 Presence of cardiac pacemaker Office Visit 11/27/2015 9:15a [facility] Cecilio Cha I48.0 Paroxysmal atrial Of Vika Angel M.D. fibrillation R06.02 Shortness of breath Office Visit 10/29/2015 8:00a [facility] Cecilio Cha R06.02 Shortness of Of Vika Angel M.D. breath I48.0 Paroxysmal atrial fibrillation Office Visit 10/13/2015 1:45p [facility] Cecilio Cha R06.02 Shortness of Of Respiratory Care Technician AT [facility] Iker Angel breath I48.0 Paroxysmal atrial fibrillation I50.33 Acute on chronic diastolic (congestive) heart failure Office Visit 08/07/2015 11:45a [facility] Cecilio Cha I48.0 Paroxysmal atrial Of Vika Angel M.D. fibrillation R06.02 Shortness of breath R60.0 Localized edema Office Visit 07/03/2015 1:00p [facility] Cecilio D. I48.0 Paroxysmal atrial Of Vika Jeremiah AngelDIvan fibrillation R06.02 Shortness of breath I50.33 Acute on chronic diastolic (congestive) heart failure R60.0 Localized edema Office Visit 11/27/2014 8:30a [facility] Cecilio D. I48.0 Paroxysmal atrial Of Respiratory Care Technician Iker Angel fibrillation Office Visit 07/25/2014 9:45a [facility] Cecilio D. 427.31 Atrial Of Respiratory Care Technician Jeremiah AngelDIvan Fibrillation 786.05 Shortness Of Breath Office Visit 12/11/2013 10:00a [facility] Cecilio Cha 427.31 Atrial Of Respiratory Care Technician Iker Angel Fibrillation 794.31 Electrocardiogram (ECG) (EKG) Abnormal Office Visit 2013 9:45a [facility] Cecilio Cha 427.31 Atrial Of Vika Angel M.D. Fibrillation Office Visit 09/18/2013 12:45p [facility] Cecilio Cha 427.31 Atrial Of Vika Angel M.D. Fibrillation 786.05 Shortness Of Breath Office Visit 08/15/2013 10:00a [facility] Cecilio Cha 427.31 Atrial Of Respiratory Care Technician Stanley MLindsey Fibrillation 786.05 Shortness Of Breath Office Visit 07/24/2013 8:00a [facility] Cecilio Cha 427.31 Atrial Of Vika Angel M.D. Fibrillation 786.05 Shortness Of Breath Office Visit 11/05/2012 3:30p [facility] Cecilio Cha 427.31 Atrial Of Respiratory Care Technician AT OXANA Angel M.D. Fibrillation Office Visit 09/20/2012 2:00p [facility] Cecilio Cha 427.31 Atrial Of Vika Angel M.D. Fibrillation Plan of Treatment Future Appointment(s):09/18/2018 3:00 pm - Pamela Garay N.P. at [facility]12/05/2018 1:30 pm - Cecilio Angel M.D. at [facility]11/09/2017 - Adrián Castellon MD, FACSK40.90 Unilateral inguinal hernia, without obstruction or gangrene, not specified as recurrentRecommendations:open surgical repair with mesh.
[2018-09-28 16:04] VITALS: BP 118/47
--- NOTE | 2018-09-28 17:15 | UC ---
UC General HPI - HPI Summary HPI Summary: 87 yo WM p/w severe neuropathic pains/post-herpetic neuralgia x 2-3 days after having a shingles episode 1 week ago, per , pt cannot sleep and had to give him a hydrocodone last night to sleep. Also needs wound care for skin scrape s/ p fall fom bed on left lateral upper arm - History of Current Complaint Chief Complaint: UCBackPain Stated Complaint: BACK PAIN Time Seen by Provider: 09/28/18 16:13 Hx Obtained From: Patient Onset/Duration: Sudden Onset Onset Severity: Severe Current Severity: Severe Pain Intensity: 0 - Allergy/Home Medications Allergies/Adverse Reactions: Allergies Allergy/AdvReac Type Severity Reaction Status Date / Time clindamycin Allergy Rash Verified 09/28/18 16:05 Home Medications: Home Medications HYDROcodone/ACETAMIN 5-325 MG* [[place] 5-325 TAB*] 1 tab PO ONCE PRN 09/28/18 [ History Confirmed 09/28/18] PMH/Surg Hx/FS Hx/Imm Hx - Additional Past Medical History Additional PMH: Zoster Previously Healthy: No - Surgical History Surgical History: Yes Surgery Procedure, Year, and Place: PROSTATECTOMY (1997, [facility] [place]. 2003 URETHRAL DILATION, CYSTOSCOPY, INTERNAL URETHROTOMY, TUR INCISION OF BLADDER NECK, [facility] [place]. 2007 & 09/2013 ENDOSCOPY WITH FOOD REMOVAL FROM SMALL ESOPHAGUS(X2), [facility] [place]. 2013 CARDIOVERSION, [facility] [place]. 04/2014 APPENDECTOMY, [facility]. 2015-PACEMAKER PLACED. 2014- BILATERAL CATARACTS REMOVED- [facility] [place]. 2017-hernia repair - Family History Known Family History: Negative: Cardiac Disease, Hypertension, Diabetes - Social History Alcohol Use: Occasionally Alcohol Amount: 1 BEER/DAY Substance Use Type: None Smoking Status (MU): Former Smoker Type: Pipe Amount Used/How Often: PIPE AND OCCASIONAL CIGAR X 35-40 YEARS Have You Smoked in the Last Year: No When Did the Patient Quit Smoking/Using Tobacco: 30 years ago Household Exposure Type: Pipe - Immunization History Vaccination Up to Date: Yes Review of Systems All Other Systems Reviewed And Are Negative: Yes Skin: Positive: Other - see HPI ENT: Positive: Negative Respiratory: Positive: Negative Cardiovascular: Positive: Negative Gastrointestinal: Positive: Negative Genitourinary: Positive: Negative Motor: Positive: Negative Musculoskeletal: Positive: Negative Neurological: Positive: Paresthesia, Other - severe post herpetic neuralgia Psychological: Positive: Negative Physical Exam - Summary Physical Exam Summary: Vital Signs Reviewed: Yes Appearance: Positive: No Pain Distress Skin: Positive: Warm, old skin scraped wound on left lateral forearm, size about 6x7cm, bandaged but oozing serosnguinous fluid. Old singles scar rash on T10 dermatome on back but hypersensitive neuropathic pain with slight touch on right posterior back C8-T10 dermatome Head/Face: Positive: Normal Head/Face Inspection Eyes: Positive: Normal ENT: Positive: Normal ENT inspection Neck: Positive: Supple Respiratory/Lung Sounds: Positive: Clear to Auscultation. Negative: Rales, Rhonchi, Wheezes Cardiovascular: Positive: Normal, RRR, S1, S2 Abdomen Description: Positive: Nontender Musculoskeletal: Positive: Normal Neurological: Positive: Normal, CN Intact II-III, hypersensitive neuropathic pain with slight touch on right posterior back C8-T10 dermatome Psychiatric: Positive: Normal, Affect/Mood Appropriate Triage Information Reviewed: Yes Vital Signs: Initial Vital Signs Temp 36.9 C 09/28/18 15:54 Pulse 74 09/28/18 15:54 Resp 16 09/28/18 15:54 BP 118/47 09/28/18 15:54 Pulse Ox 98 09/28/18 15:54 Course/Dx - Course Course Of Treatment: wound care provided, neurontin for post herpatic neuralgia, percocet if refractory pain - Diagnoses Provider Diagnosis: Post herpetic neuralgia, Bacterial skin infection of upper extremity Discharge - Sign-Out/Discharge Documenting (check all that apply): Patient Departure All imaging exams completed and their final reports reviewed: No Studies - Discharge Plan Condition: Stable Disposition: HOME Prescriptions: Cephalexin CAP* [Keflex CAP*] 500 mg PO TID 10 Days #30 cap Gabapentin 300 mg PO Q8HR 10 Days #30 capsule oxyCODONE/Acetamin 5/325 MG* [Percocet 5/325 TAB*] 1 tab PO BEDTIME PRN 6 Days # 6 tab MDD 1 PRN Reason: Neuropathy Patient Education Materials: Shingles (ED), Acute Wounds (ED) Referrals: Reji Giordano NP [Primary Care Provider] - - Billing Disposition and Condition Condition: STABLE Disposition: Home
== END 2018-09-28 17:46 | disposition home or self-care (01) ==
LOC: UCEAST 15:47
DX: G58.8 Other specified mononeuropathies (principal); L08.89 Other specified local infections of the skin and subcutaneous tissue; B96.89 Other specified bacterial agents as the cause of diseases classified elsewhere
CPT/HCPCS: 99213; G0463

== ENCOUNTER 2018-11-11 18:59 | Emergency (ER) | payer MEDICARE ==
[2018-11-11 19:50] VITALS: BP 125/64
--- NOTE | 2018-11-11 19:57 | UC ---
Skin Complaint HPI - HPI Summary HPI Summary: 88yo male abraided his left alvarez when he dropped his cane about three days ago now with redness and swelling no f/c hx cellulitis - History of Current Complaint Chief Complaint: UCWounds Stated Complaint: LEFT LEG WOUND ISSUE Hx Obtained From: Patient Onset/Duration: Sudden Onset, Lasting Days Timing: Constant Onset Severity: Mild Current Severity: Moderate Pain Intensity: 8 Pain Scale Used: 0-10 Numeric Location: Discrete Character: Pain, Redness Aggravating Factor(s): Touch Alleviating Factor(s): Nothing Associated Signs & Symptoms: Positive: Tenderness. Negative: Nausea, Vomiting, Numbness, Thirst, Diaphoresis, Weakness, Pallor, Shivering, Difficulty Breathing , Fever, Chills, Cough, Wheezing, Chest Pain, Hoarseness, Throat Tightening, Rash, Abdominal Pain, Lightheadedness, Syncope, Drainage, Bruising, Red Streaks , Joint Swelling Related History: Trauma - Allergy/Home Medications Allergies/Adverse Reactions: Allergies Allergy/AdvReac Type Severity Reaction Status Date / Time clindamycin Allergy Rash Verified 11/11/18 19:50 PMH/Surg Hx/FS Hx/Imm Hx Previously Healthy: Yes Cardiovascular History: Hypertension, Atrial Fibrillation - Surgical History Surgical History: Yes Surgery Procedure, Year, and Place: PROSTATECTOMY (1997, [facility] [place]. 2003 URETHRAL DILATION, CYSTOSCOPY, INTERNAL URETHROTOMY, TUR INCISION OF BLADDER NECK, [facility] [place]. 2007 & 09/2013 ENDOSCOPY WITH FOOD REMOVAL FROM SMALL ESOPHAGUS(X2), [facility] [place]. 2013 CARDIOVERSION, [facility] [place]. 04/2014 APPENDECTOMY, [facility]. 2015-PACEMAKER PLACED. 2014- BILATERAL CATARACTS REMOVED- [facility] [place]. 2018-hernia repair - Family History Known Family History: Negative: Cardiac Disease, Hypertension, Diabetes - Social History Alcohol Use: Occasionally Alcohol Amount: 1 BEER/DAY Substance Use Type: None Smoking Status (MU): Former Smoker Type: Pipe Amount Used/How Often: PIPE AND OCCASIONAL CIGAR X 35-40 YEARS Have You Smoked in the Last Year: No When Did the Patient Quit Smoking/Using Tobacco: 30 years ago Household Exposure Type: Pipe - Immunization History Vaccination Up to Date: Yes Review of Systems All Other Systems Reviewed And Are Negative: Yes Constitutional: Positive: Negative Skin: Positive: Other Eyes: Positive: Negative ENT: Positive: Negative Respiratory: Positive: Negative Cardiovascular: Positive: Negative Gastrointestinal: Positive: Negative Genitourinary: Positive: Negative Motor: Positive: Negative Neurovascular: Positive: Negative Musculoskeletal: Positive: Negative Neurological: Positive: Negative Psychological: Positive: Negative Physical Exam Triage Information Reviewed: Yes Appearance: Well-Appearing, No Pain Distress, Well-Nourished Vital Signs: Initial Vital Signs Temp 97.7 F 11/11/18 19:44 Pulse 74 11/11/18 19:44 Resp 16 11/11/18 19:44 BP 125/64 11/11/18 19:44 Pulse Ox 99 11/11/18 19:44 Vital Signs Reviewed: Yes Eyes: Positive: Conjunctiva Clear ENT: Positive: Normal ENT inspection. Negative: Pharyngeal erythema, Nasal congestion, Nasal drainage, TM bulging, Tonsillar swelling, Tonsillar exudate Neck: Positive: Supple, Nontender, No Lymphadenopathy Respiratory: Positive: Lungs clear, Normal breath sounds, No respiratory distress, No accessory muscle use Cardiovascular: Positive: RRR. Negative: No Murmur Abdomen Description: Positive: Nontender Bowel Sounds: Positive: Present Musculoskeletal: Positive: Edema @ - left alvarez, abrasion and left lower leg erthyema/warmth, calf not tender Neurological: Positive: Alert, Fatigued Skin Exam: Other - see image Images Front/Back of Body, Lg ([place]): 1 - abrasion, surrounding erthyema and swelling Course/Dx - Diagnoses Provider Diagnosis: Left leg cellulitis, Abrasion of left lower leg with infection Discharge ED - Sign-Out/Discharge Documenting (check all that apply): Patient Departure All imaging exams completed and their final reports reviewed: No Studies - Discharge Plan Condition: Stable Disposition: HOME Prescriptions: Cephalexin CAP* [Keflex CAP*] 500 mg PO BID #20 cap Patient Education Materials: Cellulitis (ED) Referrals: Reji Giordano NP [Primary Care Provider] - 5 Days (IF NOT IMPROVED) Additional Instructions: warm/soapy compressed 3-4 x day elevate elevate elevate recheck for new or worsening smmptoms - Billing Disposition and Condition Condition: STABLE Disposition: Home
[2018-11-11] MEDS ORDERED: Cephalexin CAP* 500 MG PO ONE (20:08)
== END 2018-11-11 20:28 | disposition home or self-care (01) ==
LOC: UCCORT 18:59
DX: S80.812A Abrasion, left lower leg, initial encounter (principal); L03.116 Cellulitis of left lower limb; X58.XXXA Exposure to other specified factors, initial encounter; Y92.9 Unspecified place or not applicable
CPT/HCPCS: 87070; 87205; 87640; 87641; 99212; A9270-GY; G0463

== ENCOUNTER 2018-12-01 07:06 | Emergency (ER) | payer MEDICARE ==
--- OUTSIDE RECORDS SUMMARY | 2018-12-01 07:17 | XMS REPORT | Continuity of Care Document ---
:1930 External Reference #:[id number] Author Name Reji Giordano N.P. Address [address] [place] [id number] Care Team Providers Name Role Phone Cecilio Angel MD Care Team Information Java Jsf Developer [phone] Problems Active Problems Provider Date Benign essential hypertension Reji Giordano, N.P. Onset: 08/28/2012 Gastroesophageal reflux disease Reji Giordano, N.PIvan Onset: 07/08/2014 Hypothyroidism Reji Giordano, N.P. Onset: 07/08/2014 Cardiac pacemaker procedure Reji Giordaon, N.P. Onset: 07/04/2016 Cellulitis of lower leg Reji Giordano, N.P. Onset: 09/26/2016 Peripheral venous insufficiency Reji Giordano, N.P. Onset: 11/22/2016 Gout Reji Giordano, N.P. Onset: 11/22/2016 Anemia Reji Giordano, N.P. Onset: 11/22/2016 Gastric polyp Reji Giordano, N.P. Onset: 07/25/2017 Social History Type Date Description Comments Sex Unknown ETOH Use Currently consumes alcohol daily 4 beers/d Tobacco Use Start: Unknown End: Patient is a former smoker quit 12y Unknown Smoking Status Reviewed: 11/07/17 Patient is a former smoker quit 12y Allergies, Adverse Reactions, Alerts Active Allergies Reaction Severity Comments Date Clindamycin 07/08/2014 Inactive Allergies NKDA 08/28/2012 Medications Active Medications SIG Qnty Indications Ordering Date Provider Hydrocodone 1 by mouth every 30tabs Pasquale 10/11/2018 Bitartrate/Acetaminop 4-6h as needed Mashelle, N.P. hen pain 5-325mg Tablets Ciprofloxacin HCL 1 by mouth twice 14bs [place], 10/11/2018 500mg a day x 7 days Mashelle, N.P. Tablets Lab Order cmp (complete [place]09/10/2018 metabolic panel) Mashelle, N.P. dx: edema [place] 3 1 by mouth every [facility] [place], 11/07/2017 1000mg Capsules day Mashelle, N.P. Mupirocin apply to affected 22un [place], 11/14/2016 2% Ointment area of leg Mashelle, N.P. twice a day Aspirin Adult Low 1 by mouth every [facility], 07/04/2016 Dose day Mashelle, N.P. 81mg Tablets Furosemide take 1 tablet by [facility], 07/24/2015 20mg Tablets mouth bid Mashelle, N.P. Potassium Chloride ER take 2 tablets by [facility], 07/24/2015 mouth every day Mashelle, N.P. 10Meq Tablets ER Losartan Potassium Take 1 Tablet By [facility], 07/22/2015 50mg Mouth Once Daily Mashelle, N.P. Tablets Amiodarone HCL Take 1 Tablet By [facility], 07/08/2014 200mg Mouth Once Daily Mashelle, N.P. Tablets Levothyroxine Sodium Take 1 Tablet By [facility], 07/08/2014 Mouth Once Daily Mashelle, N.P. 25mcg Tablets Omeprazole Take 1 Capsule By [facility], 09/04/2012 20mg Mouth Once Daily Mashelle, N.P. Capsules Allopurinol Take 1 Tablet By [facility], 08/28/2012 100mg Mouth Once Daily Mashelle, N.P. Tablets Anoro Ellipta inhale one puff [facility], by mouth every Mashelle, N.P. 62.5-25mcg/Inh day Aerosol Immunizations CPT Code Status Date Vaccine Lot # [id number] Given 11/07/2017 Influenza Vac, Quadrivalent, Split, 0.5mL Dosage, [id number] Im Use 19962 Given 11/22/2016 Influenza Vac, Quadrivalent, Split, 0.5mL Dosage, [id number] Im Use 52940 Given 12/03/2015 Pneumococcal 23 Immunization Adult Or [id number] Immunosuppressed Patient 70937 Given 11/25/2015 Influenza Vac, Quadrivalent, Split, 0.5mL Dosage, [id number] Im Use 66100 Given 12/28/2014 Influenza Vac, Quadrivalent, Split, 0.5mL Dosage, Im Use 22062 Given 12/01/2014 Prevnar 13 Pneumococal Conjugate Vaccine [id number] Q2038 Given 11/20/2013 Fluzone Trivalent Immunization [id number] 26676 Given 12/03/2012 Zoster (Zostavax) Q2038 Given 11/20/2012 Fluzone Trivalent Immunization [id number] 31316 Given 07/09/2012 Zoster (Zostavax) Vital Signs Date Vital Result Comment 10/11/2018 1:43pm Body Temperature 98.2 F Weight 192.00 lb Heart Rate 69 /min BP Systolic 126 mmHg BP Diastolic 62 mmHg O2 % BldC Oximetry 97 % 08/21/2018 1:27pm Body Temperature 98.2 F Weight 191.25 lb Heart Rate 76 /min BP Systolic 128 mmHg BP Diastolic 60 mmHg O2 % BldC Oximetry 97 % Results Test Date Facility Test Result H/L Range Note Laboratory test finding 08/21/2018 [facility] TSH 4.06 uIU/mL 0.35-4.94 Comprehensive Met 08/21/2018 [facility] Sodium 138 mmol/L 135-146 1 [facility] Potassium 4.7 mmol/L 3.5-5.2 Chloride# 103 mmol/L 97-110 2 Carbon Dioxide 26 mmol/L 24-34 Calcium 8.9 mg/dL 8.5-10.5 3 Glucose 107 mg/dL High 70-105 BUN 35 mg/dL High 6-26 Creatinine 1.3 mg/dL 0.5-1.4 Total Protein 6.8 g/dL 6.0-8.0 Albumin 4.0 g/dL 3.6-4.9 Globulin 2.8 g/dL 2.0-3.5 A/G Ratio 1.4 Ratio 1.0-2.2 Total Bilirubin 0.9 mg/dL 0.1-1.3 Alkaline Phosphatase 54 U/L 24-140 Alt 13 U/L 3-42 Ast 21 U/L 8-42 Anion Gap 9 mmol/L 5-15 4 Female Egfr 36 Low >60 5 Male Egfr 48 Low >60 6 Laboratory test finding 08/21/2018 [facility] NT Pro BNP 2000 pg/mL High (0- 450) 7 1 Updated reference range on new analyzer 2 Updated reference range on new analyzer 3 Updated reference range 06-27-2018 4 Updated Reference Range 5 Concerning GFR Guidelines for Americans: Normal function or mild renal disease, if clinically at risk: >/= 60 mL/min Moderately decreased: 30-59 Severely decreased: 15-29 Renal failure: <15 There is reduced accuracy above 60ml/min/1.73 m squared, but the numeric value may be clinically useful in the near 60 range 6 Concerning GFR Guidelines: Normal function or mild renal disease, if clinically at risk: >/= 60 mL/min Moderately decreased: 30-59 Severely decreased: 15-29 Renal failure: <15 There is reduced accuracy above 60ml/min/1.73 m squared, but the numeric value may be clinically useful in the near 60 range Glomerular Filtration Rate (GFR) is estimated based on the CKD-EPI equation, which assumes a steady state for [...] that are excreted by the kidneys. 7 Unless otherwise specified, testing performed by [facility] [address] [place] [address] Procedures Date Code Description Status 07/19/2017 [id number] Colonoscopy Completed 08/14/2014 [id number] Colonoscopy Completed Medical Devices Description No Information Available Encounters Type Date Location Provider Dx Diagnosis Office Visit 10/11/2018 Reji Lozano, L03.115 Cellulitis of RIGHT 2:00p N.P. lower limb Office Visit 08/21/2018 Reji Lozano, E03.9 Hypothyroidism, 1:30p N.P. unspecified I10 Essential (primary) hypertension R60.9 Edema, unspecified Office Visit 07/09/2018 10:00a [place], Mashelle, I10 Essential ( primary) N.P. hypertension E03.9 Hypothyroidism, unspecified D64.9 Anemia, unspecified K21.9 Gastro-esophageal reflux disease without esophagitis Z13.31 Encounter for screening for depression Assessments Date Code Description Provider 10/11/2018 L03.115 Cellulitis of RIGHT lower limb Reji Giordano, N.P. 08/21/2018 E03.9 Hypothyroidism, unspecified Pasquale, Julesle, N.P. 08/21/2018 I10 Essential (primary) hypertension Reji Giordano, N.P. 08/21/2018 R60.9 Edema, unspecified Pasquale, Julesle, N.P. 08/21/2018 E03.9 Hypothyroidism, unspecified [facility] 08/21/2018 I10 Essential (primary) hypertension [facility] 07/09/2018 I10 Essential (primary) hypertension Reji Giordano, N.P. 07/09/2018 E03.9 Hypothyroidism, unspecified Jules Giordanole, N.P. 07/09/2018 D64.9 Anemia, unspecified Pasquale, Thuyhelle, N.P. 07/09/2018 K21.9 Gastro-esophageal reflux disease without Pasquale, Reji, N.P. esophagitis 07/09/2018 Z13.31 Encounter for screening for depression Reji Giordano, N.P. Plan of Treatment Future Appointment(s):11/27/2018 10:00 am - Reji Giordano N.P. at [id number] - Reji Giordano N.P.L03.115 Cellulitis of RIGHT lower limbComments: start cipro, elevate and warm legreport fever or worsening symps use [place] sparingly for severe painAllNew Medication:Hydrocodone Bitartrate/Acetaminophen 5-325 mg - 1 by mouth every 4-6h as needed painCiprofloxacin HCL 500 mg - 1 by mouth twice a day x 7 days Functional Status Description No Information Available Mental Status Description No Information Available Referrals Refer to Reason for Referral Status Appt Date Maisha Marinelli MD anemia - saw heme onc in [place] and was told to Closed 09/10 follow-up here [facility] [address], [address] [place], [place] [address] [phone]
--- OUTSIDE RECORDS SUMMARY | 2018-12-01 07:17 | XMS REPORT | Continuity of Care Document ---
:1930 External Reference #:[id number] Author Name Reji Giordano N.P. Address [address] [place] [id number] Care Team Providers Name Role Phone Cecilio Angel MD Care Team Information Records Coordinator [phone] Problems Active Problems Provider Date Benign essential [...] needed Mashelle, N.P. hen pain 5-325mg Tablets Lab Order cmp (complete [place], 09/10/2018 metabolic panel) Masxile, N.P. dx: edema [place] 3 1 by mouth every 90caps [place], 11/07/2017 1000mg Capsules day Mashelle, N.P. Aspirin Adult Low 1 by mouth every 90tabs [place], 07/04/2016 Dose day Mashelle, N.P. 81mg Tablets Furosemide take 1 tablet by 180tabs [facility], 07/24/2015 20mg Tablets mouth twice a day Mashelle, N.P. Potassium Chloride ER take 2 tablets by 180ta [place], 07/24/2015 mouth every day Mashelle, N.P. 10Meq Tablets ER Losartan Potassium take 1 tablet by tabs [place], 07/22/2015 50mg mouth once daily Mashelle, N.P. Tablets Amiodarone HCL take 1 tablet by ta [place], 07/08/2014 200mg mouth once daily Mashelle, N.P. Tablets Levothyroxine Sodium take 1 tablet by ta [place], 07/08/2014 mouth once daily Mashelle, N.P. 25mcg Tablets Omeprazole take 1 capsule by [facility] [place], 09/04/2012 20mg mouth once daily Mashelle, N.P. Capsules Allopurinol take 1 tablet by ta [place], 08/28/2012 100mg mouth once daily Mashelle, N.P. Tablets Anoro Ellipta inhale one puff 3units [place], by mouth every Masxile, N.P. 62.5-25mcg/Inh day Aerosol History Medications Ciprofloxacin HCL 1 by mouth 14tabs Reji Giordano, 10/11/2018 - 500mg twice a day x 7 N.P. 11/27/2018 Tablets days Immunizations CPT Code Status Date Vaccine Lot # 43839 Given 11/07/2017 Influenza Vac, Quadrivalent, Split, 0.5mL Dosage, [id number] Im Use 99954 Given 11/22/2016 Influenza Vac, Quadrivalent, Split, 0.5mL Dosage, [id number] Im Use 43786 Given 12/03/2015 Pneumococcal 23 Immunization Adult Or [id number] Immunosuppressed Patient 52242 Given 11/25/2015 Influenza Vac, Quadrivalent, Split, 0.5mL Dosage, [id number] Im Use 97374 Given 12/28/2014 Influenza Vac, Quadrivalent, Split, 0.5mL Dosage, Im Use 23617 Given 12/01/2014 Prevnar 13 Pneumococal Conjugate Vaccine [id number] Q2038 Given 11/20/2013 Fluzone Trivalent Immunization [id number] 48869 Given 12/03/2012 Zoster (Zostavax) Q2038 Given 11/20/2012 Fluzone Trivalent Immunization [id number] 74323 Given 07/09/2012 Zoster (Zostavax) [id number] Refused 11/27/2018 Tdap (Adacel) Ages 7 And Above Only [id number] Refused 11/27/2018 Influenza Vac, Quadrivalent, Split, 0.5mL Dosage, Im Use Vital Signs Date Vital Result Comment 11/27/2018 1:55pm Body Temperature 98.1 F Weight 188.12 lb Heart Rate 71 /min BP Systolic 130 mmHg BP Diastolic 60 mmHg Height 66.8 inches 5'6.80" O2 % BldC Oximetry 99 % BMI (Body Mass Index) 29.6 kg/m2 11/13/2018 12:53pm Body Temperature 97.9 F Weight 183.50 lb Heart Rate 63 /min BP Systolic 134 mmHg BP Diastolic 60 mmHg Height 67 inches 5'7" O2 % BldC Oximetry 97 % BMI (Body Mass Index) 28.7 kg/m2 Results Test Date Facility Test Result H/L Range Note Wound Culture/Sensi 11/11/2018 [facility] Wound/Misc SEE RESULT 1, 2 Culture-Gram BELOW Stain Laboratory test 11/11/2018 [facility] MRSA/S. SEE RESULT 3 finding aureus Ssti BELOW PCR Laboratory test 08/21/2018 [facility] TSH 4.06 uIU/mL 0.35-4.94 finding Comprehensive Met 08/21/2018 [facility] Sodium 138 mmol/L 135-146 4 [facility] Potassium 4.7 mmol/L 3.5-5.2 Chloride# 103 mmol/L 97-110 5 Carbon Dioxide 26 mmol/L 24-34 Calcium 8.9 mg/dL 8.5-10.5 6 Glucose 107 mg/dL High 70-105 BUN 35 mg/dL High 6-26 Creatinine 1.3 mg/dL 0.5-1.4 Total Protein 6.8 g/dL 6.0-8.0 Albumin 4.0 g/dL 3.6-4.9 Globulin 2.8 g/dL 2.0-3.5 A/G Ratio 1.4 Ratio 1.0-2.2 Total Bilirubin 0.9 mg/dL 0.1-1.3 Alkaline Phosphatase 54 U/L 24-140 Alt 13 U/L 3-42 Ast 21 U/L 8-42 Anion Gap 9 mmol/L 5-15 7 Female Egfr 36 Low >60 8 Male Egfr 48 Low >60 9 Laboratory test finding 08/21/2018 [facility] NT Pro BNP 2000 pg/mL High (0- 450) 10 1 [id number] 2 SEE RESULT BELOW Name: YVETTE BONILLA : [address]: Brandt Garcia MD Acct: [id number] Unit: [id number] AGE: 88 Location: [facility] Re11/11/18 SEX: M Status: DEP ER SPEC: [id number] TERRANCE: 11/11/18-[address] [facility] [address]: Brandt Garcia MD REQ: [id number] RECD: 11/12/18 STATUS: RES [facility] DR: Reji Giordano PASTOR _ SOURCE: LEG,LEFT SPDESC: ORDERED: MRSA/SA SSTI, Culture Stain COMMENTS: [id number] Procedure Result Reported Site MRSA/S. aureus SSTI PCR PENDING Wound/Misc Gram Stain Final 11/12/18- 1208 ML No Neutrophils Observed 1+ Epithelial Cells 2+ Gram Positive Bacilli , resembling diptheroids 1+ Gram Positive Cocci Wound/Misc Culture PENDING * ML - Main Lab . END OF REPORT DEPARTMENT OF PATHOLOGY, [address] [place] [address] Giancarlo Layton M.D. Director [facility] # [id number] 3 SEE RESULT BELOW Name: YVETTE BONILLA : [address]: Brandt Garcia MD Acct: [id number] Unit: [id number] AGE: 88 Location: [facility] Re11/11/18 SEX: M Status: DEP ER SPEC: [id number] TERRANCE: 11/11/[address]: Brandt Garcia MD REQ: [id number] RECD: 11/12/18 STATUS: BRENT [facility] DR: Reji Giordano PASTOR _ SOURCE: LEG,LEFT SPDESC: ORDERED: MRSA/SA SSTI, Culture Stain COMMENTS: [id number] Procedure Result Reported Site MRSA/S. aureus SSTI PCR Final 11/12/18- 1320 ML Organism 1 MRSA NEGATIVE Organism 2 S.AUREUS NEGATIVE Wound/Misc Gram Stain Final 11/12/18- 1208 ML No Neutrophils Observed 1+ Epithelial Cells 2+ Gram Positive Bacilli , resembling diptheroids 1+ Gram Positive Cocci Wound/Misc Culture Final 11/14/18- 1051 ML Organism 1 NORMAL JESSICA Quantity 3+ * ML - Main Lab . END OF REPORT DEPARTMENT OF PATHOLOGY, [address] [place] [address] Giancarlo Layton M.D. Director [facility] # [id number] 4 Updated reference range on new analyzer 5 Updated reference range on new analyzer 6 Updated reference range 06-27-2018 7 Updated Reference Range 8 Concerning GFR Guidelines for Americans: Normal function or mild renal disease, if clinically at risk: >/= 60 mL/min Moderately decreased: 30-59 Severely decreased: 15-29 Renal failure: <15 There is reduced accuracy above 60ml/min/1.73 m squared, but the numeric value may be clinically useful in the near 60 range 9 Concerning GFR Guidelines: Normal function or mild [...] drugs that are excreted by the kidneys. 10 Unless otherwise specified, testing performed by [facility] [address] [place] [address] Procedures Date Code Description Status 07/19/2017 [id number] Colonoscopy Completed 08/14/2014 [id number] Colonoscopy Completed Medical Devices Description No Information Available Encounters Type Date Location Provider Dx Diagnosis Office Visit 10/11/2018 Reji Lozano, L03.115 Cellulitis of RIGHT 2:00p N.P. lower limb Office Visit 08/21/2018 Reji Lozano, E03.9 Hypothyroidism, 1:30p N.P. unspecified I10 Essential (primary) hypertension R60.9 Edema, unspecified R06.02 Shortness of breath Office Visit 07/09/2018 10:00a Reji Lozano, I10 Essential ( primary) N.P. hypertension E03.9 Hypothyroidism, unspecified D64.9 Anemia, unspecified K21.9 Gastro-esophageal reflux disease without esophagitis Z13.31 Encounter for screening for depression Assessments Date Code Description Provider 11/27/2018 L03.116 Cellulitis of LEFT lower limb Reji Giordano, N.P. 11/27/2018 I10 Essential (primary) hypertension Reji Giordano, N.P. 11/27/2018 E03.9 Hypothyroidism, unspecified Reji Giordano, N.P. 11/27/2018 Z00.00 Encounter for general adult medical Reji Giordano N.Jose examination without abnormal findings 11/27/2018 Z28.83 Immunization not carried out due to Reji Giordano, N.P. unavailability of vaccine 11/13/2018 L03.116 Cellulitis of LEFT lower limb Reji Giordano N.P. 11/13/2018 Z28.21 Immunization not carried out because of Reji Giordano, N.P. patient refusal 10/11/2018 L03.115 Cellulitis of RIGHT lower limb Reji Giordano, N.P. 08/21/2018 E03.9 Hypothyroidism, unspecified Reji Giordano, N.P. 08/21/2018 I10 Essential (primary) hypertension Reji Giordano, N.P. 08/21/2018 R60.9 Edema, unspecified Reji Giordano, N.P. 08/21/2018 R06.02 Shortness of breath Reji Giordano, N.P. 08/21/2018 E03.9 [facility], [facility] 08/21/2018 I10 Essential (primary) hypertension [facility] 07/09/2018 I10 Essential (primary) hypertension Reji Giordano, N.P. 07/09/2018 E03.9 Hypothyroidism, unspecified Jules Giordanole, N.P. 07/09/2018 D64.9 Anemia, unspecified Reji Giordano, N.P. 07/09/2018 K21.9 Gastro-esophageal reflux disease without Reji Giordano, N.P. esophagitis 07/09/2018 Z13.31 Encounter for screening for depression Reji Giordano N.Demetria. Plan of Treatment 11/27/2018 - Reji Giordano N.P.L03.116 Cellulitis of LEFT lower limbComments :cellulitis is much miproved from last visit. cont [facility]ound [facility] and dressing changes as directedhe agrees to report worsening symps, fever, [id number] Essential (primary) hypertensionComments: stable with current meds. Cont same pt inst to monitor B/P at home/work 2-3 times per week and report abngoal: < 140/90E03.9 Hypothyroidism, unspecifiedComments:stable with medications, euthyroid, recheck q 3 moZ00.00 Encounter for general adult medical examination without abnormal findingsComments:well male on today's examhealth promotion discussed at length including exercise,proper nutrition, sleep hygiene, adequate fluid intake, stress relief, safety and routine health sceening including skin, testicular/breast, and routine office PE's.Z28.83 Immunization not carried out due to unavailability of vaccineComments:he plans to have vaccine at Pharmacy Functional Status Description No Information Available Mental Status Description No Information Available Referrals Refer to Reason for Referral Status Appt Maisha Watt MD anemia - saw heme onc in [place] and was told to Closed 09/10 follow-up here [facility] [address] [facility], [address] [place], [place] [address] [phone]
--- OUTSIDE RECORDS SUMMARY | 2018-12-01 07:17 | XMS REPORT | Continuity of Care Document ---
:1930 External Reference #:[id number] Author Name Reji Giordano N.P. Address [address] [place] [id number] Care Team Providers Name Role Phone Cecilio Angel MD Care Team Information Street Supervisor [phone] Problems Active Problems Provider Date Benign essential [...] Ciprofloxacin HCL 1 by mouth twice 14bs [place], 10/11/2018 500mg a day x 7 days Mashelle, N.P. Tablets Lab Order cmp (complete [place]09/10/2018 metabolic panel) Mashelle, N.P. dx: edema [place] 3 1 by mouth every [facility] [place], 11/07/2017 1000mg Capsules day Mashelle, N.P. Mupirocin apply to affected 22un [place], 11/14/2016 2% Ointment area of leg Mashelle, N.P. twice a day Aspirin Adult Low 1 by mouth every [facility] [place], 07/04/2016 Dose day Mashelle, N.P. 81mg Tablets Furosemide take 1 tablet by [facility] [place], 07/24/2015 20mg Tablets mouth bid Mashelle, N.P. Potassium Chloride ER take 2 tablets by [facility] [place], 07/24/2015 mouth every day Mashelle, N.P. 10Meq Tablets ER Losartan Potassium Take 1 Tablet By [facility] [place], 07/22/2015 50mg Mouth Once Daily Mashelle, N.P. Tablets Amiodarone HCL Take 1 Tablet By [facility] [place], 07/08/2014 200mg Mouth Once Daily Mashelle, N.P. Tablets Levothyroxine Sodium Take 1 Tablet By [facility] [place], 07/08/2014 Mouth Once Daily Mashelle, N.P. 25mcg Tablets Omeprazole Take 1 Capsule By [facility], 09/04/2012 20mg Mouth Once Daily Mashelle, N.P. Capsules Allopurinol Take 1 Tablet By [facility] [place], 08/28/2012 100mg Mouth Once Daily Mashelle, N.P. Tablets Anoro Ellipta inhale [facility] puff [facility], by mouth every Mashelle, N.P. 62.5-25mcg/Inh day Aerosol Immunizations CPT Code Status Date Vaccine Lot # [id number] Given 11/07/2017 Influenza Vac, Quadrivalent, Split, 0.5mL Dosage, [id number] Im Use 70180 Given 11/22/2016 Influenza Vac, Quadrivalent, Split, 0.5mL Dosage, [id number] Im Use 22001 Given 12/03/2015 Pneumococcal 23 Immunization Adult [place] [id number] Immunosuppressed Patient 34729 Given 11/25/2015 Influenza Vac, Quadrivalent, Split, 0.5mL Dosage, [id number] Im Use 85212 Given 12/28/2014 Influenza Vac, Quadrivalent, Split, 0.5mL Dosage, Im Use 46473 Given 12/01/2014 Prevnar 13 Pneumococal Conjugate Vaccine [id number] Q2038 Given 11/20/2013 Fluzone Trivalent Immunization [id number] Given 12/03/2012 Zoster (Zostavax) [id number] Given 11/20/2012 Fluzone Trivalent Immunization [id number] 75627 Given 07/09/2012 Zoster (Zostavax) Vital Signs Date Vital Result Comment 11/13/2018 12:53pm Body Temperature 97.9 F Weight 183.50 lb Heart Rate 63 /min BP Systolic 134 mmHg BP Diastolic 60 mmHg Height 67 inches 5'7" O2 % BldC Oximetry 97 % BMI (Body Mass Index) 28.7 kg/m2 10/11/2018 1:43pm Body Temperature 98.2 F Weight 192.00 lb Heart Rate 69 /min BP Systolic 126 mmHg BP Diastolic 62 mmHg O2 % BldC Oximetry 97 % Results Test Date Facility Test Result H/L Range Note Wound Culture/Sensi 11/11/2018 [facility] Wound/Misc SEE RESULT 1, 2 Culture-Gram BELOW Stain Laboratory test 11/11/2018 [facility] MRSA/S. SEE RESULT 3 finding aureus Ssti BELOW PCR Laboratory test 08/21/2018 [facility] TSH 4.06 uIU/mL 0.35-4.94 finding Comprehensive Met 08/21/2018 [facility] Sodium 138 mmol/L 135-146 4 Panel-[facility] Potassium [...] 2000 pg/mL High (0- 450) 10 1 [id number] 2 SEE RESULT BELOW Name: YVETTE BONILLA : [address]: Brandt Garcia MD Acct: [id number] Unit: [id number] AGE: 88 Location: [facility] Re11/11/18 SEX: M Status: DEP ER SPEC: [id number] TERRANCE: 11/11/18-[address]: Brandt Garcia MD REQ: [id number] RECD: 11/12/18 STATUS: CLEVE ÁLVAREZ DR: Reji Giordano MACHINE FEEDER RAW STOCK _ SOURCE: LEG,LEFT SPDESC: ORDERED: MRSA/SA SSTI, Culture Stain COMMENTS: [id number] Procedure Result Reported Site MRSA/S. aureus SSTI PCR PENDING Wound/Misc Gram Stain Final 11/12/18- 1208 ML No Neutrophils Observed 1+ Epithelial Cells 2+ Gram Positive Bacilli , resembling diptheroids 1+ Gram Positive Cocci Wound/Misc Culture PENDING * ML - Main Lab . END OF REPORT DEPARTMENT OF PATHOLOGY, [address] [place] [address] Giancarlo Layton M.D. Director [facility] # [id number] 3 SEE RESULT BELOW Name: YVETTE BONILLA : [address]: Brandt Garcia MD Acct: [id number] Unit: [id number] AGE: 88 Location: [facility] Re11/11/18 SEX: M Status: DEP ER SPEC: [id number] TERRANCE: 11/11/18-[address]: Brandt Garcia MD REQ: [id number] RECD: 11/12/18 STATUS: RES [facility] DR: Reji Giordano MACHINE FEEDER RAW STOCK _ SOURCE: LEG,LEFT SPDESC: ORDERED: MRSA/SA SSTI, Culture Stain COMMENTS: [id number] Procedure Result Reported Site MRSA/S. aureus SSTI PCR Final 11/12/18- 1320 ML Organism 1 MRSA NEGATIVE Organism 2 S.AUREUS NEGATIVE Wound/Misc Gram Stain Final 11/12/18- 1208 ML No Neutrophils Observed 1+ Epithelial Cells 2+ Gram Positive Bacilli , resembling diptheroids 1+ Gram Positive Cocci Wound/Misc Culture PENDING * ML - Main Lab . END OF REPORT DEPARTMENT OF PATHOLOGY, [address] [place] [address] Giancarlo Layton M.D. Director [facility] # [id number] 4 Updated reference range on new analyzer [...] Unless otherwise specified, testing performed by [facility] [address] [place] [address] Procedures Date Code Description Status 07/19/2017 [id number] Colonoscopy Completed 08/14/2014 [id number] Colonoscopy Completed Medical Devices Description No Information [...] for depression Assessments Date Code Description Provider 11/13/2018 L03.116 Cellulitis of LEFT lower limb Reji Giordano, N.P. 11/13/2018 Z28.21 Immunization not carried out because of Reji Giordano, N.P. patient refusal 10/11/2018 L03.115 Cellulitis of RIGHT lower limb Reji Giordano, N.P. 08/21/2018 E03.9 Hypothyroidism, unspecified Reji Giordano, N.P. 08/21/2018 I10 Essential (primary) hypertension Reji Giordano, N.P. 08/21/2018 R60.9 Edema, unspecified Reji Giordano, N.P. 08/21/2018 R06.02 Shortness of breath Reji Giordano, N.P. 08/21/2018 E03.9 Hypothyroidism, unspecified [facility] 08/21/2018 I10 Essential (primary) hypertension [facility] 07/09/2018 I10 Essential (primary) hypertension Reji Giordano, N.P. 07/09/2018 E03.9 Hypothyroidism, unspecified Jules Giordanole, N.P. 07/09/2018 D64.9 Anemia, unspecified Reji Giordano, N.P. 07/09/2018 K21.9 Gastro-esophageal reflux disease without Reji Giordano, N.P. esophagitis 07/09/2018 Z13.31 Encounter for screening for depression Reji Giordano N.P. Plan of Treatment Future Appointment(s):11/27/2018 2:00 pm - Reji Giordano, N.P. at [id number] - Reji Giordano, N.P.L03.116 Cellulitis of LEFT lower limbComments: cont Keflex until wound culture results are readygiven PVD and frequent cellulitis lower legs, will also refer to wound care clinic for further treatment elevate and apply warm packs to area report fever or worsening symps at any timeZ28.21 Immunization not carried out because of patient refusalComments:patient counseled about benefits of receiving flu vaccinedeclines at this time, elects to get in in Nov. Functional Status Description No Information Available Mental Status Description No Information Available Referrals Refer to Reason for Referral Status Appt Date Maisha Marinelli MD anemia - saw heme onc in [place] and was told to Closed 09/10 follow-up here [facility] [address], [address] [place], [place] [address] [phone]
[2018-12-01 07:25] VITALS: BP 114/56
[2018-12-01] MEDS ORDERED: DOXYcycline CAP(*) 100 MG PO ONE (07:50)
--- NOTE | 2018-12-01 07:50 | UC ---
Skin Complaint HPI - HPI Summary HPI Summary: 88 yo WM p/w right anterior thigh tick bite, c/o circular red spot noted from 3 days ago, family member saw a "black spot" saw that it was a tick and it just "rolled" off the thigh, Denies rash. 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 2003 URETHRAL DILATION, CYSTOSCOPY, INTERNAL URETHROTOMY, TUR INCISION OF BLADDER NECK, [facility]. 2007 & 09/2013 ENDOSCOPY WITH FOOD REMOVAL FROM SMALL ESOPHAGUS(X2), [facility]. 2013 CARDIOVERSION, [facility]. 04/2014 APPENDECTOMY, [facility]. 2016-PACEMAKER PLACED. 2014- BILATERAL CATARACTS REMOVED- [facility]. 2018-hernia repair - Family History Known Family History: Negative: Cardiac Disease, Hypertension, Diabetes - Social History Alcohol Use: Daily Alcohol Amount: 1 BEER/DAY Substance Use Type: None Smoking Status (MU): Former Smoker Type: Pipe Amount Used/How Often: PIPE AND OCCASIONAL CIGAR X 35-40 YEARS Have You Smoked in the Last Year: No When Did the Patient Quit Smoking/Using Tobacco: 30 years ago Household Exposure Type: Pipe - Immunization History Vaccination Up to Date: Yes Review of Systems All Other Systems Reviewed And Are Negative: Yes Constitutional: Positive: Negative Skin: Positive: Other - SEE HPI ENT: Positive: Negative Respiratory: Positive: Negative Cardiovascular: Positive: Negative Gastrointestinal: Positive: Negative Genitourinary: Positive: Negative Motor: Positive: Negative Neurovascular: Positive: Negative Musculoskeletal: Positive: Negative Neurological: Positive: Negative Is Patient Immunocompromised?: No Physical Exam - Summary Physical Exam Summary: Appearance: Positive: No Pain Distress Skin: Positive: Warm, 1 cm circular purpuric spot on right upper anterior thigh Head/Face: Positive: Normal Head/Face Inspection Eyes: Positive: Normal ENT: Positive: Normal ENT inspection Neck: Positive: Supple Respiratory/Lung Sounds: Positive: Clear to Auscultation. Negative: Rales, Rhonchi, Wheezes Cardiovascular: Positive: Normal, RRR, S1, S2 Abdomen : soft, NT/ND Musculoskeletal: Positive: Normal, Strength/ROM Intact Neurological: Positive: CN Intact II-XII Vital Signs: Initial Vital Signs Temp 36.6 C 12/01/18 07:21 Pulse 72 12/01/18 07:21 Resp 17 12/01/18 07:21 BP 114/56 12/01/18 07:21 Pulse Ox 97 12/01/18 07:21 Course/Dx - Course Course Of Treatment: Tick bite- Doxy 200 po x 1 dose, advised to get lyme titers in 3 weeks after incubation period - Diagnoses Provider Diagnosis: Tick bite Discharge ED - Sign-Out/Discharge Documenting (check all that apply): Patient Departure All imaging exams completed and their final reports reviewed: No Studies - Discharge Plan Condition: Stable Disposition: HOME Patient Education Materials: Tick Bite (ED), Lyme Disease (ED) Referrals: Reji Giordano NP [Primary Care Provider] - Additional Instructions: Pls get lyme titers in 3 weeks - Billing Disposition and Condition Condition: STABLE Disposition: Home
== END 2018-12-01 08:05 | disposition home or self-care (01) ==
LOC: UCCORT 07:06
DX: S70.361A Insect bite (nonvenomous), right thigh, initial encounter (principal); Z88.1 Allergy status to other antibiotic agents; Z95.0 Presence of cardiac pacemaker; Z87.891 Personal history of nicotine dependence; W57.XXXA Bitten or stung by nonvenomous insect and other nonvenomous arthropods, initial encounter; Y92.9 Unspecified place or not applicable
CPT/HCPCS: 99212; A9270-GY; G0463